=== PATIENT | female | born 1965 | race Caucasian/White ===

== ENCOUNTER → 2017-11-02 14:23 | Outpatient (CLI) | payer BC, SELFPAY ==
[2017-11-02 16:45] LABS: Alanine Aminotransferase 33 IU/L (9-52); Albumin 4.7 g/dL (3.5-5.0); Albumin Globulin Ratio 1.7 (1.0-2.8); Alkaline Phosphatase 84 U/L (38-126); Aspartate Aminotransferase 29 IU/L (14-36); BUN Creatinine Ratio 23.8 (6-22); Bilirubin Total 0.4 mg/dL (0.2-1.3); Blood Urea Nitrogen 19 mg/dL (7-17); Calcium 10.3 mg/dL (8.4-10.2); Carbon Dioxide 36 mmol/L (22-32); Chloride 98 mmol/L (98-107); Estimated Glomerular Filt Rate > 60.0 mL/min (>60); Globulin 2.7 g/dL (1.7-4.1); Glucose 105 mg/dL (70-100); HEMOLYSIS 16 (0-50); Potassium 4.7 mmol/L (3.4-5.1); Sodium 143 mmol/L (137-145); Total Protein 7.4 g/dL (6.3-8.2)
== END ==
PROVIDERS: PCP Internal Medicine; Visit Provider Internal Medicine
DX: E11.9 Type 2 diabetes mellitus without complications (principal); E66.9 Obesity, unspecified; I10 Essential (primary) hypertension; K76.0 Fatty (change of) liver, not elsewhere classified
CPT/HCPCS: 36415; 80053

== ENCOUNTER → 2017-11-12 09:36 | Outpatient (CLI) | payer BC, SELFPAY ==
[2017-11-12 11:23] LABS: Alanine Aminotransferase 50 IU/L (9-52); Albumin 4.8 g/dL (3.5-5.0); Albumin Globulin Ratio 1.5 (1.0-2.8); Alkaline Phosphatase 91 U/L (38-126); Aspartate Aminotransferase 41 IU/L (14-36); Bilirubin Total 0.6 mg/dL (0.2-1.3); Blood Urea Nitrogen 20 mg/dL (7-17); Calcium 9.9 mg/dL (8.4-10.2); Carbon Dioxide 33 mmol/L (22-32); Chloride 98 mmol/L (98-107); Estimated Glomerular Filt Rate > 60.0 mL/min (>60); Globulin 3.1 g/dL (1.7-4.1); Glucose 127 mg/dL (70-100); HEMOLYSIS < 15 (0-50); Sodium 145 mmol/L (137-145); Total Protein 7.9 g/dL (6.3-8.2)
== END ==
PROVIDERS: PCP Internal Medicine; Visit Provider Internal Medicine
DX: E11.9 Type 2 diabetes mellitus without complications (principal); E66.9 Obesity, unspecified; K76.0 Fatty (change of) liver, not elsewhere classified
CPT/HCPCS: 36415; 80053

== ENCOUNTER 2017-12-21 06:55 | Emergency (ER) | payer BC, SELFPAY ==
[2017-12-21] VITALS (13 sets, daily range): BP systolic 98–118; BP diastolic 53–69; PULSE 56–73; RESP 12–21; TEMP 35.5; O2SAT 92–100; BMI 32.8
--- NOTE | 2017-12-21 07:15 | ED.SYNCOPE ---
HPI - Syncope General Chief Complaint: Fall Stated Complaint: DIZZY,SHAKING,FELL AND HIT HEAD Time Seen by Provider: 12/21/17 07:06 Source: patient and family (cousin) Limitations: no limitations History of Present Illness HPI narrative: This is a 52-year-old female who comes to the emergency department with complaint of dizziness and syncopal episode. Patient states she woke up this morning she felt very dizzy. She had to cut down on her hands and knees while she was in the shower. She stood back up to walk to her bedroom and she remembers everything being black. She did realize she was falling but she hurt all the noise which she hit the ground. She states she has a bruise on the back of her head, she denies any neck or back pain. She needs both of her shoulders are uncomfortable. She states she feels very shaky. She states the rooms not moving but everything seems sort of different in terms of sound and the room seems smaller than it should. Patient does have a little bit of a headache. She states it sort of waxes and wanes in intensity. She denies any chest pain or shortness of breath. She feels nauseated but has not had any vomiting. No diarrhea or urinary symptoms recently. She denies any weakness. She is a diabetic and takes metformin. She also takes amitriptyline. Related Data Home Medications Medication Instructions Recorded Confirmed amitriptyline 300 mg PO BEDTIME 12/21/17 12/21/17 fluticasone-salmeterol 1 puff INHALATION DIRECTED 12/21/17 12/21/17 metformin 500 mg PO BID 12/21/17 12/21/17 Previous Rx's Medication Instructions Recorded meclizine 25 mg PO BID-QID PRN #10 tab 12/21/17 Allergies Allergy/AdvReac Type Severity Reaction Status Date / Time Penicillins [PENICILLINS] Allergy Intermediate SWELLING Verified 12/21/17 07:18 Review of Systems Review of Systems All systems reviewed & are unremarkable except as noted in HPI and below Constitutional Denies body ache(s), Denies chills, Denies fever(s), Reports headache(s), Reports malaise and Denies weakness Eyes Denies loss of vision ENT Ears, Nose, Mouth, and Throat: Reports dizziness, Reports headache(s), Denies neck pain and Reports disequilibrium Cardiovascular Denies chest pain, Denies diaphoresis, Reports syncope, Denies edema, Denies irregular heart rhythm, Denies leg edema, Denies lightheadedness, Denies radiating jaw, neck or arm pain, Denies palpitations, Denies dyspnea, Denies dyspnea on exertion and Denies orthopnea Respiratory Denies chest congestion, Denies cough, Denies dyspnea, Denies dyspnea on exertion and Denies wheezing Gastrointestinal Gastrointestinal: Denies abdominal pain, Denies change in bowel habits, Denies constipation, Denies diarrhea, Reports nausea and Denies vomiting Genitourinary Denies hematuria, Denies urinary frequency, Denies flank pain, Denies urinary incontinence and Denies urinary urgency Musculoskeletal Denies back pain, Reports arthralgias (both shoulders hurt), Denies neck pain and Denies numbness Integumentary/Breasts Denies rash Neurologic Denies confusion, Reports dizziness, Reports syncope, Reports headache(s), Denies focal weakness, Denies loss of vision, Denies numbness, Reports other visual disturbances, Denies sensory deficit, Reports disequilibrium and Denies weakness Psychiatric Denies confusion Endocrine Denies palpitations Allergic/Immunologic Denies wheezing [facility] Medical History Diabetes (Acute) Social History Smoking Status: Current every day smoker Exam Narrative Exam Narrative: GEN: Patient appears in mild distress. Patient appears pale and shaky. HEAD: Patient has small hematoma on posterior scalp, no raccoon/Clancy sign. NECK: Nontender, painless range of motion, trachea midline Negative Nexus criteria, there is no mid line tenderness, distracting injury, altered mental status, neuro deficit, recent EtOH. EYES: PERRLA, EOMI ENT: External inspection normal, trachea is midline, TM's are normal no hemotypanum, small amount of fluid behind TM bilaterally, no erthema, Nares are clear, no septal hematoma, no dental or oral injury, airway is normal and with normal occlusion, No bony tenderness, no facial droop. RESP: Chest is nontender and has symmetric movement, no ecchymosis, breath sounds are normal no crackles, wheezes or rales CVS: Heart sounds are normal, no murmur noted, No JVD. ABG/GI: Nontender, soft, normal bowel sounds, no distention, no organomegaly, pelvic rock is negative NEURO: Oriented AOx3, neuro is grossly intact, sensation and motor is normal all 4 extremities moving, cranial nerves II through XII are intact, GCS is 15 PSYCH: Normal mood and affect SKIN: Intact, warm and dry, no crepitus and without decubitus BACK: No CVA tenderness, no vertebral tenderness, no step-off's, no crepitus EXT: Atraumatic, hips are nontender, no pedal edema, normal color and temperature, normal range of motion of extremities with normal tendon exam, 2+ pulses in all four extremities Initial Vital Signs Initial Vital Signs: Vital Signs Temperature 96 F L 12/21/17 07:09 Pulse Rate 73 12/21/17 07:09 Respiratory Rate 13 12/21/17 07:09 Blood Pressure 104/65 12/21/17 07:09 Pulse Oximetry 96 12/21/17 07:09 Scores NIH Stroke Scale Level of Conciousness: Alert, keenly responsive Ask month/age: Answers both questions correctly. Open/close eyes, close hand: Performs both tasks correctly Best gaze horizontal: Normal Visual miramontes: No visual loss Facial palsy: Normal symetrical movement Left arm drift: No drift for full 10 sec Right arm drift: No drift for full 10 sec Left leg drift: No drift for full 10 sec Right leg drift: No drift for full 10 sec Limb ataxia: Absent Sensory on face/arms/legs: Normal, no sensory loss Best language: No aphasia, normal Dysarthria: Normal Extinction or inattention: No abnormality Total NIH Stroke scale score: 0 Course Orders Ordered: ED Orders 12/21/17 07:14 EKG-12 Lead Stat 12/21/17 07:15 XR chest 1V Stat 12/21/17 07:23 CT head/brain wo con Stat 12/21/17 07:45 Complete Blood Count AUTO DIFF Stat Comprehensive Metabolic Panel Stat Prothrombin Time INR Stat Troponin I Stat 12/21/17 09:25 Urinalysis Sreen (Dip Only) Stat Urine Culture Stat Urine Microscopic Stat 12/21/17 10:43 CT cervical spine wo con Stat Discontinued Medications Dextrose (D50w) 12.5 gm IV NOW ONE Stop: 12/21/17 07:41 Last Admin: 12/21/17 07:44 Dose: 12.5 gm Sodium Chloride (Normal Saline 0.9%) 1,000 mls @ 1,000 mls/hr IV BOLUS ONE Stop: 12/21/17 08:13 Last Infusion: 12/21/17 09:26 Dose: 0 mls/hr Admin: 12/21/17 07:43 Dose: 1,000 mls/hr Sodium Chloride (Normal Saline 0.9%) 1,000 mls @ 1,000 mls/hr IV BOLUS ONE Stop: 12/21/17 11:43 Last Infusion: 12/21/17 12:13 Dose: 0 mls/hr Admin: 12/21/17 10:45 Dose: 1,000 mls/hr Ketorolac Tromethamine (Toradol) 30 mg IV NOW ONE Stop: 12/21/17 12:10 Last Admin: 12/21/17 12:18 Dose: 30 mg Meclizine HCl (Antivert) 50 mg PO NOW ONE Stop: 12/21/17 09:03 Last Admin: 12/21/17 09:37 Dose: 50 mg Ondansetron HCl (Zofran) 4 mg IV NOW ONE Stop: 12/21/17 07:27 Last Admin: 12/21/17 07:43 Dose: 4 mg Vital Signs - 8 hr 12/21/17 07:09 12/21/17 07:35 12/21/17 08:21 Temperature 96 F L Pulse Rate 73 59 L 61 Pulse Rate [Orthostatic Lying] Pulse Rate [Orthostatic Sitting] Pulse Rate [Orthostatic Standing] Respiratory Rate 13 16 16 Blood Pressure 104/65 Blood Pressure [Orthostatic Lying] Blood Pressure [Orthostatic Sitting] Blood Pressure [Orthostatic Standing] Blood Pressure [Right Arm] 101/60 Pulse Oximetry 96 95 12/21/17 08:30 12/21/17 09:00 12/21/17 09:30 Temperature Pulse Rate 59 L 59 L 56 L Pulse Rate [Orthostatic Lying] Pulse Rate [Orthostatic Sitting] Pulse Rate [Orthostatic Standing] Respiratory Rate 15 Blood Pressure Blood Pressure [Orthostatic Lying] Blood Pressure [Orthostatic Sitting] Blood Pressure [Orthostatic Standing] Blood Pressure [Right Arm] 98/57 L 99/56 L 108/65 Pulse Oximetry 95 97 93 12/21/17 09:38 12/21/17 10:00 12/21/17 10:30 Temperature Pulse Rate 56 L 62 63 Pulse Rate [Orthostatic Lying] Pulse Rate [Orthostatic Sitting] Pulse Rate [Orthostatic Standing] Respiratory Rate 16 Blood Pressure Blood Pressure [Orthostatic Lying] Blood Pressure [Orthostatic Sitting] Blood Pressure [Orthostatic Standing] Blood Pressure [Right Arm] 108/65 113/60 Pulse Oximetry 92 94 93 12/21/17 11:00 12/21/17 12:14 12/21/17 12:45 Temperature Pulse Rate 62 62 65 Pulse Rate [Orthostatic Lying] Pulse Rate [Orthostatic Sitting] Pulse Rate [Orthostatic Standing] Respiratory Rate 21 12 Blood Pressure Blood Pressure [Orthostatic Lying] Blood Pressure [Orthostatic Sitting] Blood Pressure [Orthostatic Standing] Blood Pressure [Right Arm] 100/53 L 109/60 115/65 Pulse Oximetry 96 100 98 12/21/17 12:54 Temperature Pulse Rate Pulse Rate [Orthostatic Lying] 57 L Pulse Rate [Orthostatic Sitting] 65 Pulse Rate [Orthostatic Standing] 61 Respiratory Rate Blood Pressure Blood Pressure [Orthostatic Lying] 118/57 L Blood Pressure [Orthostatic Sitting] 102/63 Blood Pressure [Orthostatic Standing] 109/69 Blood Pressure [Right Arm] Pulse Oximetry MDM - Syncope Lab Data Attestation: I reviewed the patient's lab results. Result diagrams: 12/21/17 07:45 12/21/17 07:45 Lab Results 12/21/17 12/21/17 12/21/17 Range/Units 07:45 07:45 07:45 WBC 5.3 (4.5-11.0) X10^3/uL RBC 4.76 (4.0-5.2) X10^6/uL Hgb 14.0 (12.0-16.0) g/dL Hct 40.9 (36-46) % MCV 86.0 (80-100) fL MCH 29.5 (26-34) PG MCHC 34.3 (30-36) % RDW 12.7 (11.6-14.8) % Plt Count 173 (150-400) X10^3/uL Neut % (Auto) 53.7 (50-75) % Lymph % (Auto) 34.6 (25-40) % [place] % (Auto) 6.0 (3-14) % Eos % (Auto) 4.9 H (2-4) % Baso % (Auto) 0.8 (0-2) % Neut # (Auto) 2900 L (1514-5192) /uL PT 11.7 (10.1-12.7) SECONDS INR 1.1 (0.9-1.3) Sodium 143 (137-145) mmol/L Potassium 4.9 (3.4-5.1) mmol/L Chloride 103 (98-107) mmol/L Carbon Dioxide 28 (22-32) mmol/L BUN 21 H (7-17) mg/dL Creatinine 0.70 (0.52-1.04) mg/dL Estimated GFR > 60.0 (>60) mL/min BUN/Creatinine Ratio 30.0 H (6-22) Glucose 108 H (70-100) mg/dL Calcium 9.5 (8.4-10.2) mg/dL Total Bilirubin 0.5 (0.2-1.3) mg/dL AST 36 (14-36) IU/L ALT 40 (9-52) IU/L Alkaline Phosphatase 77 (38-126) U/L Troponin I < 0.012 (0.01-0.034) ng/mL Total Protein 7.3 (6.3-8.2) g/dL Albumin 4.5 (3.5-5.0) g/dL Globulin 2.8 (1.7-4.1) g/dL Albumin/Globulin Ratio 1.6 (1.0-2.8) Urine Color Urine Appearance Urine pH (4.5-8.0) Ur Specific [place] (1.000-1.035) Urine Protein (Negative) Urine Glucose (UA) (Normal) g/dL Urine Ketones (NEGATIVE) Urine Occult Blood (Negative) Urine Nitrate (Negative) Urine Bilirubin (NEGATIVE) Urine Urobilinogen (0.2) E.U./dL Ur Leukocyte Esterase (NEGATIVE) Urine RBC (0-5/HPF) Urine WBC (0-5/HPF) Calcium Oxalate Crystal (None) Urine Bacteria (None) Ur Culture Indicated? Micro UA Comment 12/21/17 Range/Units 09:25 WBC (4.5-11.0) X10^3/uL RBC (4.0-5.2) X10^6/uL Hgb (12.0-16.0) g/dL Hct (36-46) % MCV (80-100) fL MCH (26-34) PG MCHC (30-36) % RDW (11.6-14.8) % Plt Count (150-400) X10^3/uL Neut % (Auto) (50-75) % Lymph % (Auto) (25-40) % [place] % (Auto) (3-14) % Eos % (Auto) (2-4) % Baso % (Auto) (0-2) % Neut # (Auto) (9540-2687) /uL PT (10.1-12.7) SECONDS INR (0.9-1.3) Sodium (137-145) mmol/L Potassium (3.4-5.1) mmol/L Chloride (98-107) mmol/L Carbon Dioxide (22-32) mmol/L BUN (7-17) mg/dL Creatinine (0.52-1.04) mg/dL Estimated GFR (>60) mL/min BUN/Creatinine Ratio (6-22) Glucose (70-100) mg/dL Calcium (8.4-10.2) mg/dL Total Bilirubin (0.2-1.3) mg/dL AST (14-36) IU/L ALT (9-52) IU/L Alkaline Phosphatase (38-126) U/L Troponin I (0.01-0.034) ng/mL Total Protein (6.3-8.2) g/dL Albumin (3.5-5.0) g/dL Globulin (1.7-4.1) g/dL Albumin/Globulin Ratio (1.0-2.8) Urine Color Yellow Urine Appearance Clear Urine pH 5.5 (4.5-8.0) Ur Specific [place] 1.020 (1.000-1.035) Urine Protein Negative (Negative) Urine Glucose (UA) Trace (Normal) g/dL Urine Ketones Negative (NEGATIVE) Urine Occult Blood Negative (Negative) Urine Nitrate Negative (Negative) Urine Bilirubin Negative (NEGATIVE) Urine Urobilinogen 0.2 (0.2) E.U./dL Ur Leukocyte Esterase Trace H (NEGATIVE) Urine RBC None seen (0-5/HPF) Urine WBC 30-100/hpf H (0-5/HPF) Calcium Oxalate Crystal Few H (None) Urine Bacteria Many (>30) H (None) Ur Culture Indicated? Specimen cultured Micro UA Comment Not Reportable Point of Care Testing Glucose POC 132 Urine Dip Bedside Urine Glucose Negative Bedside Urine Bilirubin + 1 Bedside Urine Ketone - Negative Urine Specific [place] 1.025 Bedside Urine Occult Blood - Negative Bedside Urine pH 6.0 Bedside Urine Protein - Negative Bedside Urine Urobilinogen - Negative Bedside Urine Nitrite - Negative Bedside Urine Leukocytes - Negative Esterase Imaging Data CT scan - head: Radiologist's impression: [address] [address] [address] Scan Report Signed Patient: Gerri GambleMR#: [id number] : 1965Acct:[id number] Age/Sex: 52 / FDate of Service: 12/21/17 Loc: ED Accession Number: [id number] Procedure: CT head/brain wo con Ordering Provider: Rosa Kc D.O. PROCEDURE: CT HEAD/BRAIN WO CON INDICATIONS: dizziness, syncope, fall TECHNIQUE: Noncontrast 4.5 mm thick angled axial sections acquired from the foramen magnum to the vertex, with coronal and sagittal reformats. For radiation dose reduction, the following was used: automated exposure control, adjustment of mA and/or kV according to patient size. COMPARISON: [facility], CT, HEAD WITHOUT CONTRAST, 09/26/2008, 17:15. FINDINGS: Image quality: Excellent. CSF spaces: Basal cisterns are patent. No extra-axial fluid collections. The ventricles are symmetric in size and shape. Brain: No intracranial bleeds or masses. There is cerebral volume loss for age, with resultant ventricular and sulcal prominence. There are periventricular and deep white matter chronic small vessel ischemic changes. There is intracranial internal carotid artery atherosclerosis. Skull and face: Calvarium and visualized facial bones appear intact, without suspicious lesions. Sinuses: Visualized sinuses and mastoids are clear. IMPRESSION: No acute intracranial process. Dictated by: Mario Carrillo M.D. on 12/21/2017 at 8:25 Approved by: Mario Carrillo M.D. on 12/21/2017 at 8:29 CT cervical spine : Radiologist's impression: [facility] DATE TYPE STATUS AUTHOR Hx 12/21/17 10:43 Isaak Pineda 12/21/17 07:23 Mario Carrillo 12/21/17 07:15 Chioma Taylor Gerri Gamble 52, F1965 [facility] ER, ED - Main ED: R08 165.1cm 89.358kg BSA: 1.97m? BMI: 32.8kg/m? Fall Search Chart Penicillins (PENICILLINS) SWELLING ONSET Today 12:[address] [address] [address] Scan Report Signed Patient: Madyson Gamble#: [id number] : 1965Acct:[id number] Age/Sex: 52 / FDate of Service: 12/21/17 Loc: ED Accession Number: [id number] Procedure: CT cervical spine wo con Ordering Provider: Rosa cK D.O. PROCEDURE: CT CERVICAL SPINE WO CON INDICATIONS: neck pain, after fall TECHNIQUE: Noncontrast 3 mm thick sections acquired from the skull base to the T4 level. Sagittal and coronal reformats were then constructed. For radiation dose reduction, the following was used: automated exposure control, adjustment of mA and/or kV according to patient size. COMPARISON: [facility], CT, CT HEAD/BRAIN WO CON, 12/21/2017, 8:20. FINDINGS: Image quality: Excellent. Bones: No fractures or dislocations. Visualized superior ribs are intact. Degenerative changes are seen, including moderate disc space narrowing at the C5-C6 level. Posteriorly directed osteophytes are seen at this level. S-shaped cervicothoracic scoliotic curvature can be seen. Soft tissues: Prevertebral soft tissues are normal in thickness. No paravertebral hematomas. Emphysematous changes are seen. No apical pneumothoraces. IMPRESSION: No acute fractures are seen. Degenerative changes are noted. Dictated by: Isaak Pineda M.D. on 12/21/2017 at 9:57 Approved by: Isaak Pineda M.D. on 12/21/2017 at 10:00 Chest x-ray: Radiologist's impression: [address] [address] XRay Report Signed Patient: Madyson Gamble#: [id number] : 1965Acct:[id number] Age/Sex: 52 / FDate of Service: 12/21/17 Loc: ED Accession Number: [id number] Procedure: XR chest 1V Ordering Provider: Rosa Kc D.O. PROCEDURE: XR CHEST 1V INDICATIONS: dizziness, syncope TECHNIQUE: One view of the chest was acquired. COMPARISON: [facility], CHEST 2 VIEW, 03/24/2017, 8:05. FINDINGS: Surgical changes and devices: None. Lungs and pleura: No pleural effusions or pneumothorax. Lungs are clear. Mediastinum: Mediastinal contours appear normal. Heart size is normal. Bones and chest wall: No suspicious bony lesions. Overlying soft tissues appear unremarkable. IMPRESSION: No acute pulmonary process. Dictated by: Chioma Taylor M.D. on 12/21/2017 at 7:51 Approved by: Chioma Taylor M.D. on 12/21/2017 at 7:52 ECG Data Attestation: I personally reviewed and interpreted this ECG as follows: Prior ECG tracings: not available for review Interpretation: Sinus rhythm with a rate of 64, P are 145, QRS of 116 and QTC of 433. Nonspecific ST change. MDM Narrative Medical decision making narrative: Patient's glucose was only 89 when she 1st arrived which isn't particularly low but was given some dextrose. Her symptoms did not improve recheck was 132. Patient continues to have symptoms although they are worse with movement. She does not have any specific findings on physical exam that are consistent for a CVA other than her dizziness. With for does discussion I suspect patient likely has vertigo. She has had similar symptoms in the past but not as strong. Her head CT did not show any acute changes such as bleed, mass or other changes. Chest x-ray was clear as long as lab work. She has been somewhat hypotensive in the department. She received a L of fluids which has improved somewhat. We also discussed trying some meclizine to see if this improves her symptoms. She has not given a urine sample yet. Patient's urine sample is negative. She improved with a L of fluids and her blood pressure continued to improve with a L of fluids. She is given a 2nd 1, she still has some slight dizziness but feels much better. She is able to ambulate to the bathroom without any issue. She has no signs or symptoms consistent with stroke, she may have an inner ear or labyrinthitis potentially but I suspect she has more vertigo type symptoms. Patient feels comfortable returning home. She does have a knot on the back of her head may also have some concussive symptoms complicating her situation. She is able to ambulate without assistance to the bathroom. Discharge Plan Departure Patient Disposition: Home Clinical Impression: Contusion of head, Syncope, Dizziness Discharge Date/Time: 12/21/17 13:00 Interventions: ED Discharge Assessment Last Done: 12/21/17 12:36 Instructions: DI for Concussion Activity Restrictions/Additional Instructions: Follow-up with your primary care provider in 2-3 days for recheck. Call for an appointment. You may continue your home medications as prescribed. May take meclizine 1-2 tablets every 6-8 hours for dizziness. Make sure your drinking plenty of fluids. Return to the ER for sudden severe headaches, new weakness, difficulty with speech, persistent dizziness or falling, a new chest pain or shortness of breath, sudden vision changes, passing out or other new or concerning symptoms. Prescriptions: New meclizine 25 mg tablet,chewable 25 mg PO BID-QID PRN (Reason: dizziness) Qty: 10 RF: 0 No Action metformin 500 mg tablet 500 mg PO BID RF: 0 amitriptyline 150 mg tablet 300 mg PO BEDTIME RF: 0 fluticasone-salmeterol 113-14 mcg/actuation aerosol powdr breath activated 1 puff Inhalation DIRECTED RF: 0
--- NOTE | 2017-12-21 07:21 | ED_ITS ---
HPI - Syncope General Chief Complaint: Fall Stated Complaint: DIZZY,SHAKING,FELL AND HIT HEAD Time Seen by Provider: 12/21/17 07:06 Source: patient and family (cousin) Limitations: no limitations History of Present Illness HPI narrative: This is a 52-year-old female who comes to the emergency department with complaint of dizziness and syncopal episode. Patient states she woke up this morning she felt very dizzy. She had to cut down on her hands and knees while she was in the shower. She stood back up to walk to her bedroom and she remembers everything being black. She did realize she was falling but she hurt all the noise which she hit the ground. She states she has a bruise on the back of her head, she denies any neck or back pain. She needs both of her shoulders are uncomfortable. She states she feels very shaky. She states the rooms not moving but everything seems sort of different in terms of sound and the room seems smaller than it should. Patient does have a little bit of a headache. She states it sort of waxes and wanes in intensity. She denies any chest pain or shortness of breath. She feels nauseated but has not had any vomiting. No diarrhea or urinary symptoms recently. She denies any weakness. She is a diabetic and takes metformin. She also takes amitriptyline. Related Data Home Medications Medication Instructions Recorded Confirmed amitriptyline 300 mg PO BEDTIME 12/21/17 12/21/17 fluticasone-salmeterol 1 puff INHALATION DIRECTED 12/21/17 12/21/17 metformin 500 mg PO BID 12/21/17 12/21/17 Previous Rx's Medication Instructions Recorded meclizine 25 mg PO BID-QID PRN #10 tab 12/21/17 Allergies Allergy/AdvReac Type Severity Reaction Status Date / Time Penicillins [PENICILLINS] Allergy Intermediate SWELLING Verified 12/21/17 07:18 Review of Systems Review of Systems All systems reviewed & are unremarkable except as noted in HPI and below Constitutional Denies body ache(s), Denies chills, Denies fever(s), Reports headache(s), Reports malaise and Denies weakness Eyes Denies loss of vision ENT Ears, Nose, Mouth, and Throat: Reports dizziness, Reports headache(s), Denies neck pain and Reports disequilibrium Cardiovascular Denies chest pain, Denies diaphoresis, Reports syncope, Denies edema, Denies irregular heart rhythm, Denies leg edema, Denies lightheadedness, Denies radiating jaw, neck or arm pain, Denies palpitations, Denies dyspnea, Denies dyspnea on exertion and Denies orthopnea Respiratory Denies chest congestion, Denies cough, Denies dyspnea, Denies dyspnea on exertion and Denies wheezing Gastrointestinal Gastrointestinal: Denies abdominal pain, Denies change in bowel habits, Denies constipation, Denies diarrhea, Reports nausea and Denies vomiting Genitourinary Denies hematuria, Denies urinary frequency, Denies flank pain, Denies urinary incontinence and Denies urinary urgency Musculoskeletal Denies back pain, Reports arthralgias (both shoulders hurt), Denies neck pain and Denies numbness Integumentary/Breasts Denies rash Neurologic Denies confusion, Reports dizziness, Reports syncope, Reports headache(s), Denies focal weakness, Denies loss of vision, Denies numbness, Reports other visual disturbances, Denies sensory deficit, Reports disequilibrium and Denies weakness Psychiatric Denies confusion Endocrine Denies palpitations Allergic/Immunologic Denies wheezing [facility] Medical History Diabetes (Acute) Social History Smoking Status: Current every day smoker Exam Narrative Exam Narrative: GEN: Patient appears in mild distress. Patient appears pale and shaky. HEAD: Patient has small hematoma on posterior scalp, no raccoon/Clancy sign. NECK: Nontender, painless range of motion, trachea midline Negative Nexus criteria, there is no mid line tenderness, distracting injury, altered mental status, neuro deficit, recent EtOH. EYES: PERRLA, EOMI ENT: External inspection normal, trachea is midline, TM's are normal no hemotypanum, small amount of fluid behind TM bilaterally, no erthema, Nares are clear, no septal hematoma, no dental or oral injury, airway is normal and with normal occlusion, No bony tenderness, no facial droop. RESP: Chest is nontender and has symmetric movement, no ecchymosis, breath sounds are normal no crackles, wheezes or rales CVS: Heart sounds are normal, no murmur noted, No JVD. ABG/GI: Nontender, soft, normal bowel sounds, no distention, no organomegaly, pelvic rock is negative NEURO: Oriented AOx3, neuro is grossly intact, sensation and motor is normal all 4 extremities moving, cranial nerves II through XII are intact, GCS is 15 PSYCH: Normal mood and affect SKIN: Intact, warm and dry, no crepitus and without decubitus BACK: No CVA tenderness, no vertebral tenderness, no step-off's, no crepitus EXT: Atraumatic, hips are nontender, no pedal edema, normal color and temperature, normal range of motion of extremities with normal tendon exam, 2+ pulses in all four extremities Initial Vital Signs Initial Vital Signs: Vital Signs Temperature 96 F L 12/21/17 07:09 Pulse Rate 73 12/21/17 07:09 Respiratory Rate 13 12/21/17 07:09 Blood Pressure 104/65 12/21/17 07:09 Pulse Oximetry 96 12/21/17 07:09 Scores NIH Stroke Scale Level of Conciousness: Alert, keenly responsive Ask month/age: Answers both questions correctly. Open/close eyes, close hand: Performs both tasks correctly Best gaze horizontal: Normal Visual miramontes: No visual loss Facial palsy: Normal symetrical movement Left arm drift: No drift for full 10 sec Right arm drift: No drift for full 10 sec Left leg drift: No drift for full 10 sec Right leg drift: No drift for full 10 sec Limb ataxia: Absent Sensory on face/arms/legs: Normal, no sensory loss Best language: No aphasia, normal Dysarthria: Normal Extinction or inattention: No abnormality Total NIH Stroke scale score: 0 Course Orders Ordered: ED Orders 12/21/17 07:14 EKG-12 Lead Stat 12/21/17 07:15 XR chest 1V Stat 12/21/17 07:23 CT head/brain wo con Stat 12/21/17 07:45 Complete Blood Count AUTO DIFF Stat Comprehensive Metabolic Panel Stat Prothrombin Time INR Stat Troponin I Stat 12/21/17 09:25 Urinalysis Sreen (Dip Only) Stat Urine Culture Stat Urine Microscopic Stat 12/21/17 10:43 CT cervical spine wo con Stat Discontinued Medications Dextrose (D50w) 12.5 gm IV NOW ONE Stop: 12/21/17 07:41 Last Admin: 12/21/17 07:44 Dose: 12.5 gm Sodium Chloride (Normal Saline 0.9%) 1,000 mls @ 1,000 mls/hr IV BOLUS ONE Stop: 12/21/17 08:13 Last Infusion: 12/21/17 09:26 Dose: 0 mls/hr Admin: 12/21/17 07:43 Dose: 1,000 mls/hr Sodium Chloride (Normal Saline 0.9%) 1,000 mls @ 1,000 mls/hr IV BOLUS ONE Stop: 12/21/17 11:43 Last Infusion: 12/21/17 12:13 Dose: 0 mls/hr Admin: 12/21/17 10:45 Dose: 1,000 mls/hr Ketorolac Tromethamine (Toradol) 30 mg IV NOW ONE Stop: 12/21/17 12:10 Last Admin: 12/21/17 12:18 Dose: 30 mg Meclizine HCl (Antivert) 50 mg PO NOW ONE Stop: 12/21/17 09:03 Last Admin: 12/21/17 09:37 Dose: 50 mg Ondansetron HCl (Zofran) 4 mg IV NOW ONE Stop: 12/21/17 07:27 Last Admin: 12/21/17 07:43 Dose: 4 mg Vital Signs - 8 hr 12/21/17 07:09 12/21/17 07:35 12/21/17 08:21 Temperature 96 F L Pulse Rate 73 59 L 61 Pulse Rate [Orthostatic Lying] Pulse Rate [Orthostatic Sitting] Pulse Rate [Orthostatic Standing] Respiratory Rate 13 16 16 Blood Pressure 104/65 Blood Pressure [Orthostatic Lying] Blood Pressure [Orthostatic Sitting] Blood Pressure [Orthostatic Standing] Blood Pressure [Right Arm] 101/60 Pulse Oximetry 96 95 12/21/17 08:30 12/21/17 09:00 12/21/17 09:30 Temperature Pulse Rate 59 L 59 L 56 L Pulse Rate [Orthostatic Lying] Pulse Rate [Orthostatic Sitting] Pulse Rate [Orthostatic Standing] Respiratory Rate 15 Blood Pressure Blood Pressure [Orthostatic Lying] Blood Pressure [Orthostatic Sitting] Blood Pressure [Orthostatic Standing] Blood Pressure [Right Arm] 98/57 L 99/56 L 108/65 Pulse Oximetry 95 97 93 12/21/17 09:38 12/21/17 10:00 12/21/17 10:30 Temperature Pulse Rate 56 L 62 63 Pulse Rate [Orthostatic Lying] Pulse Rate [Orthostatic Sitting] Pulse Rate [Orthostatic Standing] Respiratory Rate 16 Blood Pressure Blood Pressure [Orthostatic Lying] Blood Pressure [Orthostatic Sitting] Blood Pressure [Orthostatic Standing] Blood Pressure [Right Arm] 108/65 113/60 Pulse Oximetry 92 94 93 12/21/17 11:00 12/21/17 12:14 12/21/17 12:45 Temperature Pulse Rate 62 62 65 Pulse Rate [Orthostatic Lying] Pulse Rate [Orthostatic Sitting] Pulse Rate [Orthostatic Standing] Respiratory Rate 21 12 Blood Pressure Blood Pressure [Orthostatic Lying] Blood Pressure [Orthostatic Sitting] Blood Pressure [Orthostatic Standing] Blood Pressure [Right Arm] 100/53 L 109/60 115/65 Pulse Oximetry 96 100 98 12/21/17 12:54 Temperature Pulse Rate Pulse Rate [Orthostatic Lying] 57 L Pulse Rate [Orthostatic Sitting] 65 Pulse Rate [Orthostatic Standing] 61 Respiratory Rate Blood Pressure Blood Pressure [Orthostatic Lying] 118/57 L Blood Pressure [Orthostatic Sitting] 102/63 Blood Pressure [Orthostatic Standing] 109/69 Blood Pressure [Right Arm] Pulse Oximetry MDM - Syncope Lab Data Attestation: I reviewed the patient's lab results. Result diagrams: 12/21/17 07:45 12/21/17 07:45 Lab Results 12/21/17 12/21/17 12/21/17 Range/Units 07:45 07:45 07:45 WBC 5.3 (4.5-11.0) X10^3/uL RBC 4.76 (4.0-5.2) X10^6/uL Hgb 14.0 (12.0-16.0) g/dL Hct 40.9 (36-46) % MCV 86.0 (80-100) fL MCH 29.5 (26-34) PG MCHC 34.3 (30-36) % RDW 12.7 (11.6-14.8) % Plt Count 173 (150-400) X10^3/uL Neut % (Auto) 53.7 (50-75) % Lymph % (Auto) 34.6 (25-40) % [place] % (Auto) 6.0 (3-14) % Eos % (Auto) 4.9 H (2-4) % Baso % (Auto) 0.8 (0-2) % Neut # (Auto) 2900 L (8195-3660) /uL PT 11.7 (10.1-12.7) SECONDS INR 1.1 (0.9-1.3) Sodium 143 (137-145) mmol/L Potassium 4.9 (3.4-5.1) mmol/L Chloride 103 (98-107) mmol/L Carbon Dioxide 28 (22-32) mmol/L BUN 21 H (7-17) mg/dL Creatinine 0.70 (0.52-1.04) mg/dL Estimated GFR > 60.0 (>60) mL/min BUN/Creatinine Ratio 30.0 H (6-22) Glucose 108 H (70-100) mg/dL Calcium 9.5 (8.4-10.2) mg/dL Total Bilirubin 0.5 (0.2-1.3) mg/dL AST 36 (14-36) IU/L ALT 40 (9-52) IU/L Alkaline Phosphatase 77 (38-126) U/L Troponin I < 0.012 (0.01-0.034) ng/mL Total Protein 7.3 (6.3-8.2) g/dL Albumin 4.5 (3.5-5.0) g/dL Globulin 2.8 (1.7-4.1) g/dL Albumin/Globulin Ratio 1.6 (1.0-2.8) Urine Color Urine Appearance Urine pH (4.5-8.0) Ur Specific Morris (1.000-1.035) Urine Protein (Negative) Urine Glucose (UA) (Normal) g/dL Urine Ketones (NEGATIVE) Urine Occult Blood (Negative) Urine Nitrate (Negative) Urine Bilirubin (NEGATIVE) Urine Urobilinogen (0.2) E.U./dL Ur Leukocyte Esterase (NEGATIVE) Urine RBC (0-5/HPF) Urine WBC (0-5/HPF) Calcium Oxalate Crystal (None) Urine Bacteria (None) Ur Culture Indicated? Micro UA Comment 12/21/17 Range/Units 09:25 WBC (4.5-11.0) X10^3/uL RBC (4.0-5.2) X10^6/uL Hgb (12.0-16.0) g/dL Hct (36-46) % MCV (80-100) fL MCH (26-34) PG MCHC (30-36) % RDW (11.6-14.8) % Plt Count (150-400) X10^3/uL Neut % (Auto) (50-75) % Lymph % (Auto) (25-40) % [place] % (Auto) (3-14) % Eos % (Auto) (2-4) % Baso % (Auto) (0-2) % Neut # (Auto) (0890-0199) /uL PT (10.1-12.7) SECONDS INR (0.9-1.3) Sodium (137-145) mmol/L Potassium (3.4-5.1) mmol/L Chloride (98-107) mmol/L Carbon Dioxide (22-32) mmol/L BUN (7-17) mg/dL Creatinine (0.52-1.04) mg/dL Estimated GFR (>60) mL/min BUN/Creatinine Ratio (6-22) Glucose (70-100) mg/dL Calcium (8.4-10.2) mg/dL Total Bilirubin (0.2-1.3) mg/dL AST (14-36) IU/L ALT (9-52) IU/L Alkaline Phosphatase (38-126) U/L Troponin I (0.01-0.034) ng/mL Total Protein (6.3-8.2) g/dL Albumin (3.5-5.0) g/dL Globulin (1.7-4.1) g/dL Albumin/Globulin Ratio (1.0-2.8) Urine Color Yellow Urine Appearance Clear Urine pH 5.5 (4.5-8.0) Ur Specific Morris 1.020 (1.000-1.035) Urine Protein Negative (Negative) Urine Glucose (UA) Trace (Normal) g/dL Urine Ketones Negative (NEGATIVE) Urine Occult Blood Negative (Negative) Urine Nitrate Negative (Negative) Urine Bilirubin Negative (NEGATIVE) Urine Urobilinogen 0.2 (0.2) E.U./dL Ur Leukocyte Esterase Trace H (NEGATIVE) Urine RBC None seen (0-5/HPF) Urine WBC 30-100/hpf H (0-5/HPF) Calcium Oxalate Crystal Few H (None) Urine Bacteria Many (>30) H (None) Ur Culture Indicated? Specimen cultured Micro UA Comment Not Reportable Point of Care Testing Glucose POC 132 Urine Dip Bedside Urine Glucose Negative Bedside Urine Bilirubin + 1 Bedside Urine Ketone - Negative Urine Specific Morris 1.025 Bedside Urine Occult Blood - Negative Bedside Urine pH 6.0 Bedside Urine Protein - Negative Bedside Urine Urobilinogen - Negative Bedside Urine Nitrite - Negative Bedside Urine Leukocytes - Negative Esterase Imaging Data CT scan - head: Radiologist's impression: [address] [address] [address] Scan Report Signed Patient: Gerri GambleMR#: [id number] : 1965Acct:[id number] Age/Sex: 52 / FDate of Service: 12/21/17 Loc: ED Accession Number: [id number] Procedure: CT head/brain wo con Ordering Provider: Rosa Kc D.O. PROCEDURE: CT HEAD/BRAIN WO CON INDICATIONS: dizziness, syncope, fall TECHNIQUE: Noncontrast 4.5 mm thick angled axial sections acquired from the foramen magnum to the vertex, with coronal and sagittal reformats. For radiation dose reduction, the following was used: automated exposure control, adjustment of mA and/or kV according to patient size. COMPARISON: [facility], CT, HEAD WITHOUT CONTRAST, 09/26/2008, 17:15. FINDINGS: Image quality: Excellent. CSF spaces: Basal cisterns are patent. No extra-axial fluid collections. The ventricles are symmetric in size and shape. Brain: No intracranial bleeds or masses. There is cerebral volume loss for age , with resultant ventricular and sulcal prominence. There are periventricular and deep white matter chronic small vessel ischemic changes. There is intracranial internal carotid artery atherosclerosis. Skull and face: Calvarium and visualized facial bones appear intact, without suspicious lesions. Sinuses: Visualized sinuses and mastoids are clear. IMPRESSION: No acute intracranial process. Dictated by: Mario Carrillo M.D. on 12/21/2017 at 8:25 Approved by: Mario Carrillo M.D. on 12/21/2017 at 8:29 CT cervical spine : Radiologist's impression: [facility] DATE TYPE STATUS AUTHOR Hx 12/21/17 10:43 Isaak Pineda 12/21/17 07:23 Mario Carrillo 12/21/17 07:15 Chioma Taylor Gerri Gamble 52, [id number] [facility] ER, ED - Main ED: R08 165.1cm 89.358kg BSA: 1.97m? BMI: 32.8kg/m? Fall Search Chart Penicillins (PENICILLINS) SWELLING ONSET Today 12:[address] [address] [address] Scan Report Signed Patient: Madyson Gamble#: [id number] : 1965Acct:[id number] Age/Sex: 52 / FDate of Service: 12/21/17 Loc: ED Accession Number: [id number] Procedure: CT cervical spine wo con Ordering Provider: Rosa Kc D.O. PROCEDURE: CT CERVICAL SPINE WO CON INDICATIONS: neck pain, after fall TECHNIQUE: Noncontrast 3 mm thick sections acquired from the skull base to the T4 level. Sagittal and coronal reformats were then constructed. For radiation dose reduction, the following was used: automated exposure control, adjustment of mA and/or kV according to patient size. COMPARISON: [facility], CT, CT HEAD/BRAIN WO CON, 12/21/2017, 8:20. FINDINGS: Image quality: Excellent. Bones: No fractures or dislocations. Visualized superior ribs are intact. Degenerative changes are seen, including moderate disc space narrowing at the C5-C6 level. Posteriorly directed osteophytes are seen at this level. S-shaped cervicothoracic scoliotic curvature can be seen. Soft tissues: Prevertebral soft tissues are normal in thickness. No paravertebral hematomas. Emphysematous changes are seen. No apical pneumothoraces. IMPRESSION: No acute fractures are seen. Degenerative changes are noted. Dictated by: Isaak Pineda M.D. on 12/21/2017 at 9:57 Approved by: Isaak Pineda M.D. on 12/21/2017 at 10:00 Chest x-ray: Radiologist's impression: [address] [address] XRay Report Signed Patient: Madyson Gamble#: [id number] : 1965Acct:[id number] Age/Sex: 52 / FDate of Service: 12/21/17 Loc: ED Accession Number: [id number] Procedure: XR chest 1V Ordering Provider: Rosa Kc D.O. PROCEDURE: XR CHEST 1V INDICATIONS: dizziness, syncope TECHNIQUE: One view of the chest was acquired. COMPARISON: [facility], CHEST 2 VIEW, 03/24/2017, 8:05. FINDINGS: Surgical changes and devices: None. Lungs and pleura: No pleural effusions or pneumothorax. Lungs are clear. Mediastinum: Mediastinal contours appear normal. Heart size is normal. Bones and chest wall: No suspicious bony lesions. Overlying soft tissues appear unremarkable. IMPRESSION: No acute pulmonary process. Dictated by: Chioma Taylor M.D. on 12/21/2017 at 7:51 Approved by: Chioma Taylor M.D. on 12/21/2017 at 7:52 ECG Data Attestation: I personally reviewed and interpreted this ECG as follows: Prior ECG tracings: not available for review Interpretation: Sinus rhythm with a rate of 64, P are 145, QRS of 116 and QTC of 433. Nonspecific ST change. MDM Narrative Medical decision making narrative: Patient's glucose was only 89 when she 1st arrived which isn't particularly low but was given some dextrose. Her symptoms did not improve recheck was 132. Patient continues to have symptoms although they are worse with movement. She does not have any specific findings on physical exam that are consistent for a CVA other than her dizziness. With for does discussion I suspect patient likely has vertigo. She has had similar symptoms in the past but not as strong. Her head CT did not show any acute changes such as bleed, mass or other changes. Chest x-ray was clear as long as lab work. She has been somewhat hypotensive in the department. She received a L of fluids which has improved somewhat. We also discussed trying some meclizine to see if this improves her symptoms. She has not given a urine sample yet. Patient's urine sample is negative. She improved with a L of fluids and her blood pressure continued to improve with a L of fluids. She is given a 2nd 1, she still has some slight dizziness but feels much better. She is able to ambulate to the bathroom without any issue. She has no signs or symptoms consistent with stroke, she may have an inner ear or labyrinthitis potentially but I suspect she has more vertigo type symptoms. Patient feels comfortable returning home. She does have a knot on the back of her head may also have some concussive symptoms complicating her situation. She is able to ambulate without assistance to the bathroom. Discharge Plan Departure Patient Disposition: Home Clinical Impression: Contusion of head, Syncope, Dizziness Discharge Date/Time: 12/21/17 13:00 Interventions: ED Discharge Assessment Last Done: 12/21/17 12:36 Instructions: DI for Concussion Activity Restrictions/Additional Instructions: Follow-up with your primary care provider in 2-3 days for recheck. Call for an appointment. You may continue your home medications as prescribed. May take meclizine 1-2 tablets every 6-8 hours for dizziness. Make sure your drinking plenty of fluids. Return to the ER for sudden severe headaches, new weakness, difficulty with speech, persistent dizziness or falling, a new chest pain or shortness of breath , sudden vision changes, passing out or other new or concerning symptoms. Prescriptions: New meclizine 25 mg tablet,chewable 25 mg PO BID-QID PRN (Reason: dizziness) Qty: 10 RF: 0 No Action metformin 500 mg tablet 500 mg PO BID RF: 0 amitriptyline 150 mg tablet 300 mg PO BEDTIME RF: 0 fluticasone-salmeterol 113-14 mcg/actuation aerosol powdr breath activated 1 puff Inhalation DIRECTED RF: 0
--- NOTE | 2017-12-21 07:33 | PC.NURSE ---
pt reports got out of shower , felt dizzy, then heard sounds when she was falling, hit back of head on dresser. unknown time loc denies neck pain, now with dizzy,nausea,headache, arrived alert and awake, skin pale, dry warm
[2017-12-21] MEDS: SODIUM CHLORIDE 0.9% 1,000 ML 1000 ML IV ×2 (07:43→10:45)
[2017-12-21] MEDS: ONDANSETRON 4 MG/2 ML INJ IV (07:43)
[2017-12-21] MEDS: DEXTROSE 50 % IN WATER 25 GM/50 ML SYRINGE IV (07:44)
--- NOTE | 2017-12-21 07:48 | PC.NURSE ---
started by supervisor public health nursing marko, instructor [employer].
[2017-12-21 08:02] LABS: Add Manual Diff / Slide Review NO; Basophils Percent Auto 0.8 % (0-2); Eosinophils Percent Auto 4.9 % (2-4); Hematocrit 40.9 % (36-46); Lymphocytes Percent Auto 34.6 % (25-40); Mean Corpuscular HGB Conc 34.3 % (30-36); Mean Corpuscular Hemoglobin 29.5 PG (26-34); Neutrophils Absolute Auto 2900 /uL (3000-5900); Neutrophils Percent Auto 53.7 % (50-75); Platelet Count 173 X10^3/uL (150-400); Red Blood Cell Count 4.76 X10^6/uL (4.0-5.2); Red Cell Distribution Width 12.7 % (11.6-14.8); White Blood Cell Count 5.3 X10^3/uL (4.5-11.0)
[2017-12-21 08:07] LABS: INR 1.1 (0.9-1.3); Prothrombin Time 11.7 SECONDS (10.1-12.7)
[2017-12-21 08:13] LABS: Alanine Aminotransferase 40 IU/L (9-52); Albumin 4.5 g/dL (3.5-5.0); Albumin Globulin Ratio 1.6 (1.0-2.8); Alkaline Phosphatase 77 U/L (38-126); Aspartate Aminotransferase 36 IU/L (14-36); Bilirubin Total 0.5 mg/dL (0.2-1.3); Blood Urea Nitrogen 21 mg/dL (7-17); Calcium 9.5 mg/dL (8.4-10.2); Carbon Dioxide 28 mmol/L (22-32); Chloride 103 mmol/L (98-107); Estimated Glomerular Filt Rate > 60.0 mL/min (>60); Globulin 2.8 g/dL (1.7-4.1); Glucose 108 mg/dL (70-100); Potassium 4.9 mmol/L (3.4-5.1); Sodium 143 mmol/L (137-145); Total Protein 7.3 g/dL (6.3-8.2)
[2017-12-21 08:15] LABS: HEMOLYSIS 73 (0-50)
--- NOTE | 2017-12-21 08:23 | PC.NURSE ---
pt remain alert and awake, increase in alertness, but still c/o headache, nausea is better at this time, waiting for pending result.
[2017-12-21 08:25] LABS: Troponin I < 0.012 ng/mL (0.01-0.034)
[2017-12-21] MEDS: MECLIZINE HCL 12.5 MG TABLET 50 MG PO (09:37)
[2017-12-21 09:44] LABS: Appearance Urine UA CLEAR; Bilirubin Urine UA NEGATIVE (NEGATIVE); Color Urine UA YELLOW; Glucose Urine UA TRACE g/dL (Normal); Ketones Urine UA NEGATIVE (NEGATIVE); Leukocyte Esterase Urine UA TRACE (NEGATIVE); Nitrite Urine UA NEGATIVE (Negative); Occult Blood Urine UA NEGATIVE (Negative); Protein Urine UA NEGATIVE (Negative); Urobilinogen Urine UA 0.2 E.U./dL (0.2); pH Urine UA 5.5 (4.5-8.0)
[2017-12-21 09:48] LABS: RBC Urine None Seen (0-5/HPF)
[2017-12-21 10:09] LABS: WBC Urine 30-100/HPF (0-5/HPF)
[2017-12-21 10:10] LABS: Bacteria Urine Many (>30); Calcium Oxalate Crystals Urine Few; Culture Indicated Urine Specimen Cultured
--- NOTE | 2017-12-21 10:43 | DI.CT.S_ITS ---
PROCEDURE: CT CERVICAL SPINE WO CON INDICATIONS: neck pain, after fall TECHNIQUE: Noncontrast 3 mm thick sections acquired from the skull base to the T4 level. Sagittal and coronal reformats were then constructed. For radiation dose reduction, the following was used: automated exposure control, adjustment of mA and/or kV according to patient size. COMPARISON: [facility], CT, CT HEAD/BRAIN WO CON, 12/21/2017, 8:20. FINDINGS: Image quality: Excellent. Bones: No fractures or dislocations. Visualized superior ribs are intact. Degenerative changes are seen, including moderate disc space narrowing at the C5-C6 level. Posteriorly directed osteophytes are seen at this level. S-shaped cervicothoracic scoliotic curvature can be seen. Soft tissues: Prevertebral soft tissues are normal in thickness. No paravertebral hematomas. Emphysematous changes are seen. No apical pneumothoraces. IMPRESSION: No acute fractures are seen. Degenerative changes are noted. Dictated by: Isaak Pineda M.D. on 12/21/2017 at 9:57 Approved by: Isaak Pineda M.D. on 12/21/2017 at 10:00
--- NOTE | 2017-12-21 11:06 | PC.NURSE ---
remain with cervical collar, awaiting for pending result. denies nausea, denies numbness and tingling.
[2017-12-21] MEDS: KETOROLAC 60 MG/2 ML VIAL 30 MG IV (12:18)
== END 2017-12-21 13:00 | disposition home or self-care (01) ==
PROVIDERS: Emergency Provider Emergency Medicine; PCP Internal Medicine
DX: S00.93XA Contusion of unspecified part of head, initial encounter (principal); R55 Syncope and collapse; R42 Dizziness and giddiness; W18.30XA Fall on same level, unspecified, initial encounter
CPT/HCPCS: 70450; 71045; 72125; 80053; 81003; 81015; 82962; 84484; 85025; 85610; 87077; 87086; 87186; 93005; 96361; 96374; 96375; 99285; J1885; J2405

== ENCOUNTER → 2019-04-13 09:53 | Outpatient (CLI) | payer BC, SELFPAY ==
[2019-04-13 10:48] LABS: Hematocrit 43.3 % (36-46); Hemoglobin 14.7 g/dL (12.0-16.0); Mean Corpuscular Hemoglobin 28.8 PG (26-34); Mean Corpuscular Volume 84.8 fL (80-100); Platelet Count 192 X10^3/uL (150-400); Red Blood Cell Count 5.11 X10^6/uL (4.0-5.2); Red Cell Distribution Width 13.9 % (11.6-14.8); White Blood Cell Count 5.6 X10^3/uL (4.5-11.0)
[2019-04-13 11:08] LABS: Hemoglobin A1C% w Est Avg Glu 5.9 % (4.0-6.0)
[2019-04-13 11:23] LABS: Alanine Aminotransferase 33 IU/L (<35); Albumin 4.7 g/dL (3.5-5.0); Albumin Globulin Ratio 1.5 (1.0-2.8); Alkaline Phosphatase 124 U/L (38-126); Aspartate Aminotransferase 35 IU/L (14-36); BUN Creatinine Ratio 18.3 (6-22); Bilirubin Total 0.4 mg/dL (0.2-1.3); Blood Urea Nitrogen 11 mg/dL (7-17); Calcium 9.9 mg/dL (8.4-10.2); Carbon Dioxide 25 mmol/L (22-32); Chloride 103 mmol/L (98-107); Cholesterol 161 mg/dL (140-199); Estimated Glomerular Filt Rate > 60.0 mL/min (>60); Globulin 3.1 g/dL (1.7-4.1); Glucose 112 mg/dL (70-100); HDL Cholesterol 63 mg/dL (40-60); HEMOLYSIS 20 (0-50); LDL Cholesterol Calculated 73 mg/dL (<100); Potassium 4.4 mmol/L (3.4-5.1); Sodium 140 mmol/L (137-145); Total Protein 7.8 g/dL (6.3-8.2); Triglycerides 125 mg/dL (35-150)
== END ==
PROVIDERS: PCP Nurse Practitioner Family; Referring Provider Nurse Practitioner Family; Visit Provider Nurse Practitioner Family
DX: Z13.6 Encounter for screening for cardiovascular disorders (principal); E11.9 Type 2 diabetes mellitus without complications; K76.0 Fatty (change of) liver, not elsewhere classified
CPT/HCPCS: 36415; 80053; 80061; 83036; 85027

== ENCOUNTER → 2019-12-19 11:00 | Outpatient (CLI) | payer BC, SELFPAY ==
[2019-12-19 13:50] LABS: COVID19 -Nasal RAPID Negative (Negative)
== END ==
PROVIDERS: PCP Nurse Practitioner Family; Visit Provider Physician Assistant
DX: R05 Cough (principal); J02.9 Acute pharyngitis, unspecified; R51.9 Headache, unspecified; R06.02 Shortness of breath
CPT/HCPCS: 87635

== ENCOUNTER → 2020-05-09 08:34 | Outpatient (CLI) | payer BC, SELFPAY ==
[2020-05-09 09:21] LABS: BUN Creatinine Ratio 25.4 (6-22); Blood Urea Nitrogen 16 mg/dL (7-17); Calcium 9.2 mg/dL (8.4-10.2); Carbon Dioxide 27 mmol/L (22-32); Chloride 105 mmol/L (98-107); Estimated Glomerular Filt Rate > 60.0 mL/min (>60); Glucose 119 mg/dL (70-100); Potassium 3.9 mmol/L (3.4-5.1); Sodium 139 mmol/L (137-145)
[2020-05-09 09:38] LABS: Hemoglobin A1C% w Est Avg Glu 5.7 % (4.0-6.0)
[2020-05-09 16:10] LABS: Alanine Aminotransferase 39 IU/L (<35); Albumin 4.2 g/dL (3.5-5.0); Albumin Globulin Ratio 1.6 (1.0-2.8); Alkaline Phosphatase 107 U/L (38-126); Aspartate Aminotransferase 37 IU/L (14-36); Bilirubin Total 0.2 mg/dL (0.2-1.3); Bilirubin Unconjugated 0.1 mg/dL (0.0-1.1); Globulin 2.6 g/dL (1.7-4.1); HEMOLYSIS 15 (0-50); Total Protein 6.8 g/dL (6.3-8.2)
== END ==
PROVIDERS: PCP Nurse Practitioner Family; Referring Provider Nurse Practitioner Family; Visit Provider Nurse Practitioner Family
DX: E11.9 Type 2 diabetes mellitus without complications (principal); R73.01 Impaired fasting glucose
CPT/HCPCS: 36415; 80048; 80076; 83036

== ENCOUNTER → 2020-05-16 10:00 | Outpatient (CLI) | payer BC, SELFPAY ==
[2020-05-16 10:34] LABS: Hematocrit 41.6 % (36-46); Hemoglobin 14.1 g/dL (12.0-16.0); Mean Corpuscular HGB Conc 33.8 % (30-36); Mean Corpuscular Hemoglobin 28.6 PG (26-34); Mean Corpuscular Volume 84.6 fL (80-100); Platelet Count 237 X10^3/uL (150-400); Red Blood Cell Count 4.92 X10^6/uL (4.0-5.2); Red Cell Distribution Width 14.1 % (11.6-14.8); White Blood Cell Count 5.9 X10^3/uL (4.5-11.0)
[2020-05-16 10:51] LABS: Appearance Urine UA CLEAR; Bilirubin Urine UA NEGATIVE (NEGATIVE); Color Urine UA YELLOW; Glucose Urine UA NEGATIVE (Negative); Ketones Urine UA NEGATIVE (NEGATIVE); Leukocyte Esterase Urine UA NEGATIVE (NEGATIVE); Nitrite Urine UA NEGATIVE (Negative); Occult Blood Urine UA TRACE-LYSED (Negative); Protein Urine UA NEGATIVE (Negative); Specific Gravity Urine UA 1.025 (1.000-1.035); Urobilinogen Urine UA 0.2 E.U./dL (0.2)
[2020-05-16 11:13] LABS: Bacteria Urine Few (2-10); Culture Indicated Urine Cult Not Indicated; RBC Urine 0-1/HPF (0-5/HPF); Squamous Epithelial Cell Urine 1-5 /HPF (0-5/HPF); WBC Urine 1-5/HPF (0-5/HPF)
[2020-05-16 11:16] LABS: Alanine Aminotransferase 40 IU/L (<35); Albumin 4.4 g/dL (3.5-5.0); Albumin Globulin Ratio 1.6 (1.0-2.8); Alkaline Phosphatase 101 U/L (38-126); Aspartate Aminotransferase 46 IU/L (14-36); BUN Creatinine Ratio 18.2 (6-22); Bilirubin Total 0.2 mg/dL (0.2-1.3); Bilirubin Unconjugated 0.3 mg/dL (0.0-1.1); Blood Urea Nitrogen 12 mg/dL (7-17); Carbon Dioxide 25 mmol/L (22-32); Chloride 104 mmol/L (98-107); Estimated Glomerular Filt Rate > 60.0 mL/min (>60); Globulin 2.8 g/dL (1.7-4.1); Glucose 97 mg/dL (70-100); HEMOLYSIS < 15 (0-50); Potassium 3.9 mmol/L (3.4-5.1); Sodium 140 mmol/L (137-145); Total Protein 7.2 g/dL (6.3-8.2)
[2020-05-16 11:45] LABS: TSH w/ Reflex to FT4 1.57 uIU/mL (0.47-4.68)
== END ==
PROVIDERS: PCP Nurse Practitioner Family; Referring Provider Nurse Practitioner Family; Visit Provider Nurse Practitioner Family
DX: R00.2 Palpitations (principal); R10.11 Right upper quadrant pain; R11.0 Nausea; R35.0 Frequency of micturition; R42 Dizziness and giddiness; R55 Syncope and collapse; K76.0 Fatty (change of) liver, not elsewhere classified
CPT/HCPCS: 36415; 80053; 80076; 81001; 84443; 85027

== ENCOUNTER → 2020-05-18 14:07 | Outpatient (CLI) | payer BC, SELFPAY ==
--- NOTE | 2020-05-18 14:09 | DI.RAD.S_ITS ---
PROCEDURE: XR CERVICAL SPINE 2V OR 3V INDICATIONS: neck strain after syncopal episode TECHNIQUE: 3 view(s) of the cervical spine were acquired. COMPARISON: [facility], CT, CT CERVICAL SPINE WO CON, 12/21/2017, 10:34. FINDINGS: Bones: No fractures or dislocations to the C7 level. The lateral masses of C1 appear intact on the odontoid view. No suspicious bony lesions. Mild multilevel intervertebral disc height loss most apparent at C5-6. Multilevel facet arthrosis. Soft tissues: No prevertebral soft tissue swelling. IMPRESSION: Multilevel cervical spondylosis without evidence of an acute bony abnormality. Dictated by: Zurdo Oglesby M.D. on 05/18/2020 at 13:30 Approved by: Zurdo Oglesby M.D. on 05/18/2020 at 13:32
== END ==
PROVIDERS: PCP Nurse Practitioner Family; Referring Provider Nurse Practitioner Family; Visit Provider Nurse Practitioner Family
DX: S16.1XXA Strain of muscle, fascia and tendon at neck level, initial encounter (principal); R55 Syncope and collapse
CPT/HCPCS: 72040

== ENCOUNTER → 2020-05-27 09:31 | Outpatient (CLI) | payer BC, SELFPAY ==
[2020-05-27 10:11] LABS: Bacteria Urine None Seen; RBC Urine None Seen (0-5/HPF); WBC Urine None Seen (0-5/HPF)
[2020-05-27 10:20] LABS: Appearance Urine UA CLEAR; Bilirubin Urine UA NEGATIVE (NEGATIVE); Color Urine UA YELLOW; Glucose Urine UA NEGATIVE (Negative); Ketones Urine UA NEGATIVE (NEGATIVE); Leukocyte Esterase Urine UA NEGATIVE (NEGATIVE); Nitrite Urine UA NEGATIVE (Negative); Occult Blood Urine UA NEGATIVE (Negative); Protein Urine UA NEGATIVE (Negative); Urobilinogen Urine UA 0.2 E.U./dL (0.2)
[2020-05-27 10:29] LABS: Culture Indicated Urine Cult Not Indicated; Urine Comments Microscopic Normal
--- NOTE | 2020-06-19 08:54 | PM.CARDMON.1 ---
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 Referral & Results Date Patient Seen: 05/27/20 Requesting provider: Dariel Almendarez Indication: Syncope Duration of monitoring (days): 7 Diary information: There were 9 patient triggered events and 9 patient diary entries All 18 these patient events were associated with (within 45 seconds), sinus rhythm, PACs, and PVCs Data: Minimum heart rate identified was 46 beats per minute at 04:56 on 06/03/2020 Maximum heart rate identified was 119 beats per minute at 06:42 on 05/29/2020 Less than 1% of identified beats were ventricular or supraventricular ectopic in origin, which would classify them as rare. 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 No etiology for syncope identified on this study.
== END ==
PROVIDERS: PCP Nurse Practitioner Family; Referring Provider Nurse Practitioner Family; Visit Provider Nurse Practitioner Family
DX: R55 Syncope and collapse (principal); R42 Dizziness and giddiness; R00.2 Palpitations; R35.0 Frequency of micturition
CPT/HCPCS: 81001; 93242; 93244

== ENCOUNTER → 2020-06-03 11:58 | Outpatient (CLI) | payer BC, SELFPAY ==
--- NOTE | 2020-06-03 11:59 | DI.MRI.S_ITS ---
PROCEDURE: MR HEAD/BRAIN WO/W CON INDICATIONS: Head injury TECHNIQUE: Noncontrast axial T1 spin echo, axial T2 fast spin echo, sagittal and axial FLAIR, coronal T2 fast spin echo, axial gradient echo, axial diffusion and ADC through the brain. After the administration of contrast, axial and coronal 3D VIBE or T1 spin echo with fat saturation through the brain. COMPARISON: [facility], CT, CT HEAD/BRAIN WO CON, 12/21/2017, 8:20. FINDINGS: Image quality: Excellent. CSF Spaces: Basal cisterns are patent. No extra-axial fluid collections. Ventricles are normal in size and shape. Brain: No midline shift. No intracranial bleeds or masses. No abnormal intracranial enhancement. The brainstem appears normal. Diffusion-weighted images demonstrate no acute ischemic insults. No chronic ischemic insults. Normal intravascular flow voids are present. Skull and face: Calvarial marrow is normal in signal. Orbits appear normal. Sinuses: Sinuses and mastoids appear clear. IMPRESSION: No acute intracranial abnormality. Dictated by: Teofilo Vazquez M.D. on 06/03/2020 at 13:39 Approved by: Teofilo Vazquez M.D. on 06/03/2020 at 13:51
--- NOTE | 2020-06-03 11:59 | DI.US.S_ITS ---
PROCEDURE: US ABDOMEN COMPLETE INDICATIONS: head injury. Elevated liver enzymes. TECHNIQUE: Real-time scanning was performed of the abdominal and retroperitoneal organs, with image documentation. COMPARISON: [facility] Ultrasound, US, US ABDOMEN, 05/08/2015, 9:47. FINDINGS: Liver: The liver demonstrates normal size. The liver demonstrates generalized moderately increased echogenicity. This decreases ultrasound sensitivity for detection of hepatic masses. Gallbladder: Removed. Biliary ducts: Intrahepatic bile ducts are non-dilated. Extrahepatic bile duct caliber measures 6 mm. Normal is 6-7 mm or less in diameter, or 10 mm or less post-cholecystectomy. Pancreas: Visualized portions of the pancreas are sonographically normal. Spleen: Spleen is normal in size and homogeneous in echotexture. Kidneys: Kidneys are normal in size and echotexture. Right kidney measures 10.2 cm long; left kidney measures 11.8 cm long. No hydronephrosis or nephrolithiasis. No solid masses. Aorta: Visualized aorta is normal in caliber at less than 3 cm. Iliacs: Proximal common iliac arteries are normal in caliber at less than 2.5 cm. IVC: Intrahepatic inferior vena cava is patent. Miscellaneous: No free abdominal fluid. IMPRESSION: The liver demonstrates increased echogenicity. This finding is nonspecific, yet it is most commonly attributed to fatty infiltration. Status post cholecystectomy, without biliary dilatation. Dictated by: Isaak Pineda M.D. on 06/03/2020 at 12:10 Approved by: Isaak Pineda M.D. on 06/03/2020 at 12:11
== END ==
PROVIDERS: PCP Nurse Practitioner Family; Referring Provider Nurse Practitioner Family; Visit Provider Nurse Practitioner Family
DX: R42 Dizziness and giddiness (principal); R55 Syncope and collapse; R10.11 Right upper quadrant pain; R74.8 Abnormal levels of other serum enzymes; S09.90XA Unspecified injury of head, initial encounter; X58.XXXA Exposure to other specified factors, initial encounter; Z90.49 Acquired absence of other specified parts of digestive tract
CPT/HCPCS: 70553; 76700

== ENCOUNTER → 2020-06-17 12:11 | Outpatient (CLI) | payer BC, SELFPAY ==
--- NOTE | 2020-06-17 12:12 | DI.ECHO.S_ITS ---
[facility] +---------+ : : [address] : : : : [id number] : : : : Phone: [phone]+ Echocardiogram Report + + :Name: JOSEY FREITAS Study Date: 06/17/2020 Height: 65 in : :[facility] ReadingLocation: Weight: 259 lb : : Gender: Female BSA: 2.2 m2 : :: 1965 Age: 54 yrs BP: 156/98 mmHg: :Reason For Study: Syncope : :Ordering Physician: TAMARA, : :ALESSIO Performed By: Kane Burris : :Referring: ALESSIO MCDONALD : + + Interpretation Summary Normal echo study. Procedure: A two-dimensional transthoracic echocardiogram with color flow and Doppler was performed. The study quality was technically adequate. There is no prior echocardiogram noted for this patient. Left Ventricle: The left ventricle is normal in size and wall thickness. Left ventricular systolic function is normal. The ejection fraction is estimated to be 60-65%. There are no focal wall motion abnormalities. Diastolic parameters suggest probable normal left ventricular diastolic function and normal filling pressures. Right Ventricle: The right ventricle is normal in size and function. Atria: Both atria are normal in size. There is no Doppler evidence for an interatrial shunt. Mitral Valve: The mitral valve is normal in structure and function. There is trace mitral regurgitation. Aortic Valve: The aortic valve is normal in structure and function. No aortic regurgitation is present. Tricuspid Valve: The tricuspid valve is normal in structure and function. No tricuspid regurgitation. Pulmonary artery pressures cannot be estimated because of the lack of a measurable TR jet velocity but the IVC suggests a CVP of around 3 mmHg. Pulmonic Valve: The pulmonic valve is not well seen, but is grossly normal. There is no pulmonic valvular regurgitation. Great Vessels: The aortic root is normal size. The ascending aorta could not be visualized. The IVC is of normal diameter and collapses greater than 50% with a sniff. This suggests a low right atrial pressure of 3 mm Hg. Pericardium/ Pleura There is no pericardial effusion. There is no pleural effusion. MMode/2D Measurements & Calculations LVIDd: 5.4 cm LVOT diam: 2.0 cm LVIDs: 3.8 cm Ao root diam: 2.9 cm FS: 30.8 % IVSd: 0.90 cm LVPWd: 0.76 cm LV yu. diameter/BSA (cm/m^2): 2.5 LV sys. diameter/BSA (cm/m^2): 1.7 LA A2 area: 12.5 cm2 RA area: 10.8 cm2 LA A4 area: 11.9 cm2 IVC diam: 1.7 cm LA length (vol): 4.1 cm LA vol: 30.7 ml LA vol index: 13.9 ml/m2 TAPSE: 2.2 cm Doppler Measurements & Calculations Ao V2 max: 149.3 cm/sec LVOT Max Dave: 121.9 cm/sec Ao V2 mean: 104.5 cm/sec LV V1 max P.9 mmHg Ao max P.9 mmHg LV V1 VTI: 25.2 cm Ao mean P.8 mmHg SCOTT(I,D): 2.7 cm2 Ao V2 VTI: 29.4 cm SCOTT(V,D): 2.5 cm2 sev ratio: 0.86 SCOTT indexed to BSA (cm^2/m^2): 1.2 MV E max dave: 92.1 cm/sec PA V2 max: 109.2 cm/sec MV A max dave: 70.3 cm/sec PA V2 mean: 81.6 cm/sec MV E/A: 1.3 PA mean P.9 mmHg Med Peak E' Dave: 9.1 cm/sec PA pr(Accel): 40.6 mmHg E/E' med: 10.2 Lat Peak E' Dave: 10.5 cm/sec E/E' lat: 8.7 E/e' average: 9.5 MV dec time: 0.20 sec SV(LVOT): 78.1 ml Electronically signed by: Regla Torres on Reading Physician:06/17/2020 02:08 PM
== END ==
PROVIDERS: Family Provider Nurse Practitioner Family; PCP Nurse Practitioner Family; Referring Provider Nurse Practitioner Family; Visit Provider Nurse Practitioner Family
DX: R55 Syncope and collapse (principal); R42 Dizziness and giddiness
CPT/HCPCS: 93306

== ENCOUNTER 2020-09-23 12:15 | Outpatient (RCR) | payer BC, SELFPAY ==
--- NOTE | 2020-07-01 12:45 | PT.OIE ---
Current Diagnoses Syncope and collapse (07/01/20) Strain of muscle, fascia and tendon at neck level, initial encounter (07/01/20) Past Medical History (Last Updated 06/26/20 @ 09:36 by CHANTELL Paige) Abnormal Pap smear of cervix (~1991) Anxiety (~1993) Cataracts, bilateral (~2016) Chicken pox Chronic back pain Depression Diabetes (~2008) Diabetes mellitus type 2, diet-controlled (04/2019) Dizziness (2017) Elevated blood pressure reading Elevated liver enzymes Episode of syncope (04/2020) Fatty liver (~2014) Foot pain (~2016) Hearing loss Hepatitis C (~1998) History of hepatitis C (1999) History of urinary incontinence (~2017) Insomnia Measles Mumps Myopia Nausea Neck strain (04/2020) Ovarian cyst (~1991) Palpitations Right upper quadrant pain (04/2020) Rotator cuff tear (10/2018) Shoulder pain (~2018) Tinnitus Type 2 diabetes mellitus (2009) Urinary frequency Vertigo (~2017) Past Surgical History (Last Updated 04/11/19 @ 20:16 by Flavia Yan) Anesthesia History of section History of cholecystectomy (~1992) History of hysterectomy (~1998) History of laparoscopy History of liver biopsy (~1997) History of tubal ligation (~1991) Hx of removal of ovary (~1991) Visit Care Team Role Provider Type CHANTELL Paige Family Provider Advanced 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 Facing Sand Primary Care Provider Specialty: [facility] Practice Address: [address] [place] [address], [facility] Email: [email or web address] Eliu Irwin MD Attending Provider Physician Referring Provider Specialty: [facility] Address: [address] [place] [address], [facility] Email: [email or web address] Physical Therapy Initial Evaluation PT-OP-A Visit Information Start: 06/20/20 15:58 Freq: Status: Active Protocol: Document 07/01/20 07:29 MB (Rec: 07/01/20 07:47 MB [id number]) Out-Patient Physical Therapy Visit Information Visit Information Visit Type Initial Evaluation Visit Note High deductible, 20 visits a year Visit Start Time 07:29 Visit Stop Time 08:14 Total Visit Minutes 45 Visit Number 03/06 Evaluation Information Evaluation Date 07/01/20 PT-OP-B Current Condition Start: 06/20/20 15:58 Freq: Status: Active Protocol: Document 07/01/20 07:29 MB (Rec: 07/01/20 07:47 MB [id number]) Current Condition History of Current Condition Onset Date April 2020 Current Complaints Severe headache that limits work History of Current Condition Pt states that she was taking her dog out in April and she fell on her front porch. She hit her head. She had another fall in 2018 where she tripped and she injured her right shoulder. She had PT on it and she got better. She is right handed. Pt reports tension and burning from her occiput down her back. She reports 8/10 pain. 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 Her pain is a lot worse with her work. She can barely do her job. She is having daily headaches. She cannot sleep well. Pt states that she was put on high blood pressure medicine on Wednesday. Pt has a history of feeling light-headed and a syncopal episode. A couple of years ago, she was diagnosed with concussion. She went to the ED and was given pills. Pt reports that her left arm sometimes goes numb when it is bent when she is sitting. PMH includes DM, elevated liver enzymes, Hep C, right ankle pain, severe ringing in both ears. Pt states that she gets to the point of tears at work. Prior Treatments and Tests MRI brain, jack spinner both NAD; US abdomen: cholecystectomy, liver echogenicity; cervical spine: multilevel cervical spondylosis. Treatment Goals Patient/Caregiver Goals To decrease headache PT-OP-C Subjective Start: 06/20/20 15:58 Freq: Status: Active Protocol: Document 07/01/20 07:29 MB (Rec: 07/01/20 07:47 MB [id number]) OP-PT Subjective Patient Comments Patient Comments See history of current condition Patient Questionnaires Neck Disability Index NDI Score 28 Neck Disability Index Impairment 40 to 59% Impaired (Score 20- 29) PT-OP-J Posture/Palpation/Skin Start: 06/20/20 15:58 Freq: Status: Active Protocol: Document 07/01/20 07:29 MB (Rec: 07/01/20 12:45 MB [id number]) Posture Evaluation Comments Posture Comments Standing posture: decreased cervical lordosis, Dowager's hump, decreased thoracic kyphosis, increased lumbar lordosis and anterior tilt pelvis, increased overall body mass, right shoulder is mildly higher than the left and right scapula is mildly more protracted and higher than the left, left iliac crest is higher than the right , B knee valgus, pronation left foot and supination right foot. Pt reports some fire pain in her posterior neck and shoulder blades with looking down. PT-OP-K Range of Motion Start: 06/20/20 15:58 Freq: Status: Active Protocol: Document 07/01/20 07:29 MB (Rec: 07/01/20 12:45 MB [id number]) Cervical Spine Range of Motion Cervical Spine Active Testing Position Standing Comments Self-limits cervical ROM testing d/t c/o fire pain with cervical flexion in standing and pt mildly tearful today Shoulder Goniometric Range of Motion Shoulder ROM Limitations Comments B shoulder flexion and abduction normal PT-OP-M Strength Start: 06/20/20 15:58 Freq: Status: Active Protocol: Document 07/01/20 07:29 MB (Rec: 07/01/20 12:45 MB [id number]) Shoulder Strength Shoulder Manual Muscle Testing Bilateral Flexion 5 Normal Abduction (C5) 5 Normal External Rotation 5 Normal Internal Rotation 5 Normal Elbow/Forearm Strength Elbow and Forearm Manual Muscle Testing Bilateral Flexion (C6) 5 Normal Extension (C7) 5 Normal Pronation 5 Normal Supination 5 Normal Wrist Strength Wrist Manual Muscle Testing Bilateral Flexion (C7) 5 Normal Extension (C6) 5 Normal PT-OP-Q Treatments Start: 06/20/20 15:58 Freq: Status: Active Protocol: Document 07/01/20 07:29 MB (Rec: 07/01/20 12:22 MB [id number]) Therapeutic Exercises Other Exercises Racquet ball self-massage Other Exercise Name Intrascapular muscles Side bilateral Comments Instructed today, pt performs and PT provides handouts Self-Care/Home Management Treatment Education Other Education Pt ed pt in signs and symptoms of concussion, propers sleeping position with neck and head support with towel roll and pillow, legs up on wedge, use of ice over forehead, log roll technique, benefits of getting a yoga mat and set up proper resting position with head and neck support at work as needed, headache care and good sleeping hygiene handouts PT-OP-T Assessment and Plan Start: 06/20/20 15:58 Freq: Status: Active Protocol: Document 07/01/20 07:29 MB (Rec: 07/01/20 12:45 MB [id number]) Physical Therapy Assessment Rehab Potential Rehabilitation Potential Fair Evaluation Complexity Number of Personal Factors/Comorbidities 1-2 Number of Body Systems Impaired 1-2 Clinical Presentation at Evaluation Evolving Impairments Impairments Activity Tolerance,Balance, Pain,Posture,ROM,Soft Tissue Mobility,Strength Other Impairments Personal factors include severity of pain, job requiring provocative position of pain (sitting and looking downward), body systems affected include musculoskeletal, neuromuscular , vestibular and visual motor, affect is tearful after concussion. Her clinical presentation is evolving. Other Concerns Fall Risk Yes Goals 3 Business Systems Technician Goal (LTG) Pt will perform progressive HEP with I including Buteyko Breathing, postural exercises, self-myofascial work, strengthening, balance and VOR exercises to improve pain and balance by 08/31/20. LTG Duration 8 weeks 2 [facility] Goal (LTG) Pt will perform WNLs on a standardized balance test to decrease fall risk by 08/31/20. LTG Duration 8 weeks 1 Impairment NDI reflects greater than 50% impairment Business Systems Technician Goal (LTG) Pt will present with an improved NDI score to reflect no more than 20% impairment to reflect improvement in function and quality of life by 08/31/20. LTG Duration 8 weeks Assessment Summary Assessment Pt is a 54 y/o female presenting two months out from a fall where she hit her head . 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 Cervical ROM testing is limited today d/t reports of pain. Oculomotor screen, orthostatic hypotension and pupil constriction testing are all normal today. B finger to nose is slow. Her BP and HR in LUE supine is 121/72, 54; standing 132/84, 60; standing 1' 137/85, 59. Pt does feel dizzy upon standing and this may be cervical in nature. She reports dizziness with looking down and given mechanism of injury and pain complaints, PT feels that her dizziness and headaches have strong cervicogenic component. PT will provide more concussion testing and education in future treatment sessions. Instructed pt in sleeping hygiene and headache self-care today and encouraged her to get a yoga mat and pillow to use during breaks at work. Also initiated instruction in use of racquet ball for self-massage. Pt will benefit from ongoing PT to improve pain, posture, relaxation, breathing, body mechanics, VOR and balance. Physical Therapy Plan Frequency and Duration Frequency of Treatment 2x/Week Duration of Treatment 8 weeks Plan of Care Start Date 07/01/20 Plan of Care End Date 09/02/20 Therapeutic Interventions Therapeutic Interventions Balance Training,Canalithic Repositioning,Coordination Training,Gait Training,Home Exercise Program,Joint Mobilizations,Manual Therapy, Neuromuscular Re-education, Patient/Caregiver Education, Self-Care/Home Management, Sensory Integration,Soft Tissue Mobilization,Taping, Therapeutic Activities, Therapeutic Exercises, Vestibular Rehabilitation Modalities Cold Pack/Ice Massage,Hot Packs Next Visit Focus/Plan Next Note Type Treatment Note Next Visit Plan Initiate drawing out concussion cascade and providing low inflammation diet info, consider giving a SCAT test, further VOMS training when ready, infraspinatus MWM with racquet ball, Buteyko Breathing in hook lying with head, neck and legs supported (this is priority over other testing)
--- NOTE | 2020-07-01 12:46 | PT.OPPOC ---
Physical, Occupational & Speech Therapy At [facility] Current Diagnoses Syncope and collapse (07/01/20) Strain of muscle, fascia and tendon at neck level, initial encounter (07/01/20) Visit Care Team Role Provider Type CHANTELL Paige Family Provider Advanced Conservation Assistant Primary Care Provider Specialty: [facility] Practice Address: [address] [place] [address], [id number] Email: [email or web address] Eliu Irwin MD Attending Provider Physician Referring Provider Specialty: [facility] Address: [address] [place] [address], [id number] Email: [email or web address] Plan Of Care PT-OP-T Assessment and Plan Start: 06/20/20 15:58 Freq: Status: Active Protocol: Document 07/01/20 07:29 MB (Rec: 07/01/20 12:45 MB [id number]) Physical Therapy Assessment Rehab Potential Rehabilitation Potential Fair Evaluation Complexity Number of Personal Factors/Comorbidities 1-2 Number of Body Systems Impaired 1-2 Clinical Presentation at Evaluation Evolving Impairments Impairments Activity Tolerance,Balance, Pain,Posture,ROM,Soft Tissue Mobility,Strength Other Impairments Personal factors include severity of pain, job requiring provocative position of pain (sitting and looking downward), body systems affected include musculoskeletal, neuromuscular , vestibular and visual motor, affect is tearful after concussion. Her clinical presentation is evolving. Other Concerns Fall Risk Yes Goals 3 Analytics Director Goal (LTG) Pt will perform progressive HEP with I including Buteyko Breathing, postural exercises, self-myofascial work, strengthening, balance and VOR exercises to improve pain and balance by 08/31/20. LTG Duration 8 weeks 2 [facility] Goal (LTG) Pt will perform WNLs on a standardized balance test to decrease fall risk by 08/31/20. LTG Duration 8 weeks 1 Impairment NDI reflects greater than 50% impairment Analytics Director Goal (LTG) Pt will present with an improved NDI score to reflect no more than 20% impairment to reflect improvement in function and quality of life by 08/31/20. LTG Duration 8 weeks Assessment Summary Assessment Pt is a 54 y/o female presenting two months out from a fall where she hit her head . 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 Cervical ROM testing is limited today d/t reports of pain. Oculomotor screen, orthostatic hypotension and pupil constriction testing are all normal today. B finger to nose is slow. Her BP and HR in LUE supine is 121/72, 54; standing 132/84, 60; standing 1' 137/85, 59. Pt does feel dizzy upon standing and this may be cervical in nature. She reports dizziness with looking down and given mechanism of injury and pain complaints, PT feels that her dizziness and headaches have strong cervicogenic component. PT will provide more concussion testing and education in future treatment sessions. Instructed pt in sleeping hygiene and headache self-care today and encouraged her to get a yoga mat and pillow to use during breaks at work. Also initiated instruction in use of racquet ball for self-massage. Pt will benefit from ongoing PT to improve pain, posture, relaxation, breathing, body mechanics, VOR and balance. Physical Therapy Plan Frequency and Duration Frequency of Treatment 2x/Week Duration of Treatment 8 weeks Plan of Care Start Date 07/01/20 Plan of Care End Date 09/02/20 Therapeutic Interventions Therapeutic Interventions Balance Training,Canalithic Repositioning,Coordination Training,Gait Training,Home Exercise Program,Joint Mobilizations,Manual Therapy, Neuromuscular Re-education, Patient/Caregiver Education, Self-Care/Home Management, Sensory Integration,Soft Tissue Mobilization,Taping, Therapeutic Activities, Therapeutic Exercises, Vestibular Rehabilitation Modalities Cold Pack/Ice Massage,Hot Packs Next Visit Focus/Plan Next Note Type Treatment Note Next Visit Plan Initiate drawing out concussion cascade and providing low inflammation diet info, consider giving a SCAT test, further VOMS training when ready, infraspinatus MWM with racquet ball, Buteyko Breathing in hook lying with head, neck and legs supported (this is priority over other testing) Plan of Care Dates Plan of Care Start Date 07/01/20 Plan of Care End Date 09/02/20 Electronically Signed by: Kayla Camarillo PT 07/01/20 1246 Please Sign and Return: I have reviewed this Plan of Care and certify that the skilled therapy services above are required to meet the patient?s needs. Physician Signature Date Printed Name and Credentials Clinical Instructor Signature Printed Name and Credentials
--- NOTE | 2020-07-04 15:35 | PT.OTN ---
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 She hit her head. She had another fall in 2018 where she tripped and she injured her right shoulder. She had PT on it and she got better. She is right handed. Pt reports tension and burning from her occiput down her back. She reports 8/10 pain. 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 Her pain is a lot worse with her work. She can barely do her job. She is having daily headaches. She cannot sleep well. Pt states that she was put on high blood pressure medicine on Wednesday. Pt has a history of feeling light-headed and a syncopal episode. A couple of years ago, she was diagnosed with concussion. She went to the ED and was given pills. Pt reports that her left arm sometimes goes numb when it is bent when she is sitting. PMH includes DM, elevated liver enzymes, Hep C, right ankle pain, severe ringing in both ears. Pt states that she gets to the point of tears at work. Prior Treatments and Tests MRI brain, bridge tender both NAD; US abdomen: cholecystectomy, liver echogenicity; cervical spine: multilevel cervical spondylosis. Treatment Goals Patient/Caregiver Goals To decrease headache PT-OP-C Subjective Start: 06/20/20 15:58 Freq: Status: Active Protocol: Document 07/04/20 15:21 [facility] (Rec: 07/04/20 15:35 [facility] [id number]) OP-PT Subjective Patient Comments Patient Comments Pt reports when this had initially stated she tried to dec diet soda as she drank several a day and changed to reg soda which made her nausea so stopped soda all togeher. Now drinks only water and a couple cups of iced tea (for caffiene). Notes she barely is able to eat anything d/t her nausea so yesterday all she ate was a little bit of the toppings off a piece of pizza her had ordered. PT-OP-J Posture/Palpation/Skin Start: 06/20/20 15:58 Freq: Status: Active Protocol: Document 07/01/20 07:29 MB (Rec: 07/01/20 12:45 MB [id number]) Posture Evaluation Comments Posture Comments Standing posture: decreased cervical lordosis, Dowager's hump, decreased thoracic kyphosis, increased lumbar lordosis and anterior tilt pelvis, increased overall body mass, right shoulder is mildly higher than the left and right scapula is mildly more protracted and higher than the left, left iliac crest is higher than the right , B knee valgus, pronation left foot and supination right foot. Pt reports some fire pain in her posterior neck and shoulder blades with looking down. PT-OP-K Range of Motion Start: 06/20/20 15:58 Freq: Status: Active Protocol: Document 07/01/20 07:29 MB (Rec: 07/01/20 12:45 MB [id number]) Cervical Spine Range of Motion Cervical Spine Active Testing Position Standing Comments Self-limits cervical ROM testing d/t c/o fire pain with cervical flexion in standing and pt mildly tearful today Shoulder Goniometric Range of Motion Shoulder ROM Limitations Comments B shoulder flexion and abduction normal PT-OP-M Strength Start: 06/20/20 15:58 Freq: Status: Active Protocol: Document 07/01/20 07:29 MB (Rec: 07/01/20 12:45 MB [id number]) Shoulder Strength Shoulder Manual Muscle Testing Bilateral Flexion 5 Normal Abduction (C5) 5 Normal External Rotation 5 Normal Internal Rotation 5 Normal Elbow/Forearm Strength Elbow and Forearm Manual Muscle Testing Bilateral Flexion (C6) 5 Normal Extension (C7) 5 Normal Pronation 5 Normal Supination 5 Normal Wrist Strength Wrist Manual Muscle Testing Bilateral Flexion (C7) 5 Normal Extension (C6) 5 Normal PT-OP-Q Treatments Start: 06/20/20 15:58 Freq: Status: Active Protocol: Document 07/04/20 15:21 [facility] (Rec: 07/04/20 15:35 [facility] [id number]) Therapeutic Exercises Sidelying Exercises open book Side bilateral Reps/Minutes 12 Standing Exercises pec stretch Standing Exercise Name 1. doorway arms ext 2. corner arms at 90/90 Side bilateral Reps/Minutes 30 sec ea Comments focus on neutral spine & neck position Therapeutic Activity Therapeutic Activity sleep position Name supine sleep position Comments 2 pillows under legs (support upper and lower legs, improtance of pillow only under neck and head not shoulders, arms propped w/ pillows and discussed option for towel under LB in needs further support Manual Therapy Treatment Soft Tissue Mobilization cervical region Body Location B UTs, LS, SO, cervical paraspinals Mobilization Type Myofascial Release,Rolling, Strumming,Sustained Pressure Intensity/Depth Moderate Body Position Hooklying cranial fascia Mobilization Type Myofascial Release Intensity/Depth Superficial Body Position Hooklying Self-Care/Home Management Treatment Education Other Education why tspine mobility important PT-OP-T Assessment and Plan Start: 06/20/20 15:58 Freq: Status: Active Protocol: Document 07/04/20 15:21 [facility] (Rec: 07/04/20 15:35 [facility] [id number]) Physical Therapy Assessment Goals 3 Custodial Goal (LTG) Pt will perform progressive HEP with I including Buteyko Breathing, postural exercises, self-myofascial work, strengthening, balance and VOR exercises to improve pain and balance by 08/31/20. LTG Duration 8 weeks 2 Custodial Goal (LTG) Pt will perform WNLs on a standardized balance test to decrease fall risk by 08/31/20. LTG Duration 8 weeks 1 Impairment NDI reflects greater than 50% impairment Fur Blowing Machine Attendant Goal (LTG) Pt will present with an improved NDI score to reflect no more than 20% impairment to reflect improvement in function and quality of life by 08/31/20. LTG Duration 8 weeks Assessment Summary Assessment Pt tolerated session well with notable L>R tightness but signfiicant restriction of ability for scap to have any downward movement B. She was able to tolerate exercises without inc pain. Discussed use of exercises during work ( standing ones) to reverse time spent bent fwd. Worked on sleep position which pt noted comfort and feeling of more support w/PT instruction. Physical Therapy Plan Frequency and Duration Frequency of Treatment 2x/Week Duration of Treatment 8 weeks Plan of Care Start Date 07/01/20 Plan of Care End Date 09/02/20 Next Visit Focus/Plan Next Note Type Treatment Note Next Visit Plan Initiate drawing out concussion cascade and providing low inflammation diet info, consider giving a SCAT test, further VOMS training when ready, infraspinatus MWM with racquet ball, Buteyko Breathing in hook lying with head, neck and legs supported (this is priority over other testing) Cont to work on thoracic mobility at tolerated
--- NOTE | 2020-07-08 10:29 | PT.OTN ---
Current Diagnoses Syncope and collapse (07/08/20) Strain of muscle, fascia and tendon at neck level, initial encounter (07/08/20) Physical Therapy Treatment Note PT-OP-A Visit Information Start: 06/20/20 15:58 Freq: Status: Active Protocol: Document 07/08/20 09:47 MB (Rec: 07/08/20 10:29 MB [id number]) Out-Patient Physical Therapy Visit Information Visit Information Visit Type Treatment Note Visit Note High deductible, 20 visits a year Visit Start Time 09:47 Visit Stop Time 10:27 Total Visit Minutes 40 Visit Number 3 PT-OP-B Current Condition Start: 06/20/20 15:58 Freq: Status: Active Protocol: Document 07/01/20 07:29 MB (Rec: 07/01/20 07:47 MB [id number]) Current Condition History of Current Condition Onset Date April 2020 Current Complaints Severe headache that limits work History of Current Condition Pt states that she was taking her dog out in April and she fell on her front porch. She hit her head. She had another fall in 2018 where she tripped and she injured her right shoulder. She had PT on it and she got better. She is right handed. Pt reports tension and burning from her occiput down her back. She reports 8/10 pain. 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 Her pain is a lot worse with her work. She can barely do her job. She is having daily headaches. She cannot sleep well. Pt states that she was put on high blood pressure medicine on Wednesday. Pt has a history of feeling light-headed and a syncopal episode. A couple of years ago, she was diagnosed with concussion. She went to the ED and was given pills. Pt reports that her left arm sometimes goes numb when it is bent when she is sitting. PMH includes DM, elevated liver enzymes, Hep C, right ankle pain, severe ringing in both ears. Pt states that she gets to the point of tears at work. 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 Treatment Goals Patient/Caregiver Goals To decrease headache PT-OP-C Subjective Start: 06/20/20 15:58 Freq: Status: Active Protocol: Document 07/08/20 09:47 MB (Rec: 07/08/20 10:29 MB [id number]) OP-PT Subjective Patient Comments Patient Comments Not much has changed. She is doing her stretches at work and at night before she goes to bed. Her arms tingled when she was lying on her back with towel roll support a neck. PT-OP-J Posture/Palpation/Skin Start: 06/20/20 15:58 Freq: Status: Active Protocol: Document 07/01/20 07:29 MB (Rec: 07/01/20 12:45 MB [id number]) Posture Evaluation Comments Posture Comments Standing posture: decreased cervical lordosis, Dowager's hump, decreased thoracic kyphosis, increased lumbar lordosis and anterior tilt pelvis, increased overall body mass, right shoulder is mildly higher than the left and right scapula is mildly more protracted and higher than the left, left iliac crest is higher than the right , B knee valgus, pronation left foot and supination right foot. Pt reports some fire pain in her posterior neck and shoulder blades with looking down. PT-OP-K Range of Motion Start: 06/20/20 15:58 Freq: Status: Active Protocol: Document 07/01/20 07:29 MB (Rec: 07/01/20 12:45 MB [id number]) Cervical Spine Range of Motion Cervical Spine Active Testing Position Standing Comments Self-limits cervical ROM testing d/t c/o fire pain with cervical flexion in standing and pt mildly tearful today Shoulder Goniometric Range of Motion Shoulder ROM Limitations Comments B shoulder flexion and abduction normal PT-OP-M Strength Start: 06/20/20 15:58 Freq: Status: Active Protocol: Document 07/01/20 07:29 MB (Rec: 07/01/20 12:45 MB [id number]) Shoulder Strength Shoulder Manual Muscle Testing Bilateral Flexion 5 Normal Abduction (C5) 5 Normal External Rotation 5 Normal Internal Rotation 5 Normal Elbow/Forearm Strength Elbow and Forearm Manual Muscle Testing Bilateral Flexion (C6) 5 Normal Extension (C7) 5 Normal Pronation 5 Normal Supination 5 Normal Wrist Strength Wrist Manual Muscle Testing Bilateral Flexion (C7) 5 Normal Extension (C6) 5 Normal PT-OP-Q Treatments Start: 06/20/20 15:58 Freq: Status: Active Protocol: Document 07/08/20 09:47 MB (Rec: 07/08/20 10:29 MB [id number]) Therapeutic Exercises Supine Exercises Buteyko breathing Supine Exercise Name Ed pt in theory, purpose, ed and practice reduced breathing and diaphragm Comments See assessment for details Self-Care/Home Management Treatment Education Other Education PT draws out and ed pt in concussion cascade, many reasons for dizziness including metabolic, blood supply, vestibular/visual, whiplash and psychological. Provided low inflammatory diet info, ongoing ed about hydration, try rest position at work. Ed pt to take in her racquet ball to work for use. Re-ed in proper sleeping position. PT-OP-T Assessment and Plan Start: 06/20/20 15:58 Freq: Status: Active Protocol: Document 07/08/20 09:47 MB (Rec: 07/08/20 10:29 MB [id number]) Physical Therapy Assessment Rehab Potential Rehabilitation Potential Fair Evaluation Complexity Number of Personal Factors/Comorbidities 1-2 Number of Body Systems Impaired 1-2 Clinical Presentation at Evaluation Evolving Impairments Impairments Activity Tolerance,Balance, Pain,Posture,ROM,Soft Tissue Mobility,Strength Other Impairments Personal factors include severity of pain, job requiring provocative position of pain (sitting and looking downward), body systems affected include musculoskeletal, neuromuscular , vestibular and visual motor, affect is tearful after concussion. Her clinical presentation is evolving. Other Concerns Fall Risk Yes Goals 3 Production Packager Goal (LTG) Pt will perform progressive HEP with I including Buteyko Breathing, postural exercises, self-myofascial work, strengthening, balance and VOR exercises to improve pain and balance by 08/31/20. LTG Duration 8 weeks 2 Fdc Goal (LTG) Pt will perform WNLs on a standardized balance test to decrease fall risk by 08/31/20. LTG Duration 8 weeks 1 Impairment NDI reflects greater than 50% impairment Production Packager Goal (LTG) Pt will present with an improved NDI score to reflect no more than 20% impairment to reflect improvement in function and quality of life by 08/31/20. LTG Duration 8 weeks Assessment Summary Assessment Buteyko breathing training and practice today with pt hook lying with legs supported and head and neck supported: HR and O2 sats in left index finger before startin BPM and sats 95%. 1st rep: 12 sec and sats increased to 97% and HR 53 BPM; 2nd rep: 14 sec, sats 98%; 3rd rep not counted. 4th rep: HR 53 BPM, O2 sats 98%, ed in diaphragm. Pt tends to finn through exercises and PT must cue her to slow down. Once cued again, she can perform with diaphragm movement. PT ed pt to con't breathing throughout the work day and at times of stress and to help go to sleep. Overall, her O2 sats are higher with exercise, 97%. Physical Therapy Plan Frequency and Duration Frequency of Treatment 2x/Week Duration of Treatment 8 weeks Plan of Care Start Date 07/01/20 Plan of Care End Date 09/02/20 Therapeutic Interventions Therapeutic Interventions Balance Training,Canalithic Repositioning,Coordination Training,Gait Training,Home Exercise Program,Joint Mobilizations,Manual Therapy, Neuromuscular Re-education, Patient/Caregiver Education, Self-Care/Home Management, Sensory Integration,Soft Tissue Mobilization,Taping, Therapeutic Activities, Therapeutic Exercises, Vestibular Rehabilitation Modalities Cold Pack/Ice Massage,Hot Packs Next Visit Focus/Plan Next Note Type Treatment Note Next Visit Plan VOMS training when ready, infraspinatus MWM with racquet ball, open book and other thoracic and breathing exercises
--- NOTE | 2020-07-10 08:58 | PT.OTN ---
Current Diagnoses Syncope and collapse (07/10/20) Strain of muscle, fascia and tendon at neck level, initial encounter (07/10/20) Physical Therapy Treatment Note PT-OP-A Visit Information Start: 06/20/20 15:58 Freq: Status: Active Protocol: Document 07/10/20 08:17 MB (Rec: 07/10/20 08:58 MB [id number]) Out-Patient Physical Therapy Visit Information Visit Information Visit Type Treatment Note Visit Note High deductible, 20 visits a year Visit Start Time 08:17 Visit Stop Time 08:57 Total Visit Minutes 40 Visit Number 4 PT-OP-B Current Condition Start: 06/20/20 15:58 Freq: Status: Active Protocol: Document 07/01/20 07:29 MB (Rec: 07/01/20 07:47 MB [id number]) Current Condition History of Current Condition Onset Date April 2020 Current Complaints Severe headache that limits work History of Current Condition Pt states that she was taking her dog out in April and she fell on her front porch. She hit her head. She had another fall in 2018 where she tripped and she injured her right shoulder. She had PT on it and she got better. She is right handed. Pt reports tension and burning from her occiput down her back. She reports 8/10 pain. 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 Her pain is a lot worse with her work. She can barely do her job. She is having daily headaches. She cannot sleep well. Pt states that she was put on high blood pressure medicine on Wednesday. Pt has a history of feeling light-headed and a syncopal episode. A couple of years ago, she was diagnosed with concussion. She went to the ED and was given pills. Pt reports that her left arm sometimes goes numb when it is bent when she is sitting. PMH includes DM, elevated liver enzymes, Hep C, right ankle pain, severe ringing in both ears. Pt states that she gets to the point of tears at work. Prior Treatments and Tests MRI brain, color television console monitor both NAD; US abdomen: cholecystectomy, liver echogenicity; cervical spine: multilevel cervical spondylosis. Treatment Goals Patient/Caregiver Goals To decrease headache PT-OP-C Subjective Start: 06/20/20 15:58 Freq: Status: Active Protocol: Document 07/10/20 08:17 MB (Rec: 07/10/20 08:58 MB [id number]) OP-PT Subjective Patient Comments Patient Comments Pt states that she used the breathing to fall asleep last night. PT-OP-J Posture/Palpation/Skin Start: 06/20/20 15:58 Freq: Status: Active Protocol: Document 07/01/20 07:29 MB (Rec: 07/01/20 12:45 MB [id number]) Posture Evaluation Comments Posture Comments Standing posture: decreased cervical lordosis, Dowager's hump, decreased thoracic kyphosis, increased lumbar lordosis and anterior tilt pelvis, increased overall body mass, right shoulder is mildly higher than the left and right scapula is mildly more protracted and higher than the left, left iliac crest is higher than the right , B knee valgus, pronation left foot and supination right foot. Pt reports some fire pain in her posterior neck and shoulder blades with looking down. PT-OP-K Range of Motion Start: 06/20/20 15:58 Freq: Status: Active Protocol: Document 07/01/20 07:29 MB (Rec: 07/01/20 12:45 MB [id number]) Cervical Spine Range of Motion Cervical Spine Active Testing Position Standing Comments Self-limits cervical ROM testing d/t c/o fire pain with cervical flexion in standing and pt mildly tearful today Shoulder Goniometric Range of Motion Shoulder ROM Limitations Comments B shoulder flexion and abduction normal PT-OP-M Strength Start: 06/20/20 15:58 Freq: Status: Active Protocol: Document 07/01/20 07:29 MB (Rec: 07/01/20 12:45 MB [id number]) Shoulder Strength Shoulder Manual Muscle Testing Bilateral Flexion 5 Normal Abduction (C5) 5 Normal External Rotation 5 Normal Internal Rotation 5 Normal Elbow/Forearm Strength Elbow and Forearm Manual Muscle Testing Bilateral Flexion (C6) 5 Normal Extension (C7) 5 Normal Pronation 5 Normal Supination 5 Normal Wrist Strength Wrist Manual Muscle Testing Bilateral Flexion (C7) 5 Normal Extension (C6) 5 Normal PT-OP-Q Treatments Start: 06/20/20 15:58 Freq: Status: Active Protocol: Document 07/10/20 08:17 MB (Rec: 07/10/20 08:58 MB [id number]) Manual Therapy Treatment Other Other Manual Treatments Pt reports good eye pressure. Pt agrees to Counterstrain to assess and treat fascial tension and pt presents with tension in the follow fascial systems: right facial nerve, left sinuvertebral, parasympathetic. PT treats stacks in the following fascial systems: facial nerve and sinuvertebral scan improves, and PT treats cervical DPRs. Subccipital release PT-OP-T Assessment and Plan Start: 06/20/20 15:58 Freq: Status: Active Protocol: Document 07/10/20 08:17 MB (Rec: 07/10/20 08:58 MB [id number]) Physical Therapy Assessment Rehab Potential Rehabilitation Potential Fair Evaluation Complexity Number of Personal Factors/Comorbidities 1-2 Number of Body Systems Impaired 1-2 Clinical Presentation at Evaluation Evolving Impairments Impairments Activity Tolerance,Balance, Pain,Posture,ROM,Soft Tissue Mobility,Strength Other Impairments Personal factors include severity of pain, job requiring provocative position of pain (sitting and looking downward), body systems affected include musculoskeletal, neuromuscular , vestibular and visual motor, affect is tearful after concussion. Her clinical presentation is evolving. Other Concerns Fall Risk Yes Goals 3 Bus Greaser Goal (LTG) Pt will perform progressive HEP with I including Buteyko Breathing, postural exercises, self-myofascial work, strengthening, balance and VOR exercises to improve pain and balance by 08/31/20. LTG Duration 8 weeks 2 Bus Greaser Goal (LTG) Pt will perform WNLs on a standardized balance test to decrease fall risk by 08/31/20. LTG Duration 8 weeks 1 Impairment NDI reflects greater than 50% impairment Half-Way Goal (LTG) Pt will present with an improved NDI score to reflect no more than 20% impairment to reflect improvement in function and quality of life by 08/31/20. LTG Duration 8 weeks Assessment Summary Assessment Initiated Counterstrain to assess and treat fascial tension and pt responds well initially to treatment and will con't to monitor. Given mechanism of injury and complaints, consider manual treatment for C1 for fascial systems and then work into periosteal, especially for the cranium. Physical Therapy Plan Frequency and Duration Frequency of Treatment 2x/Week Duration of Treatment 8 weeks Plan of Care Start Date 07/01/20 Plan of Care End Date 09/02/20 Therapeutic Interventions Therapeutic Interventions Balance Training,Canalithic Repositioning,Coordination Training,Gait Training,Home Exercise Program,Joint Mobilizations,Manual Therapy, Neuromuscular Re-education, Patient/Caregiver Education, Self-Care/Home Management, Sensory Integration,Soft Tissue Mobilization,Taping, Therapeutic Activities, Therapeutic Exercises, Vestibular Rehabilitation Modalities Cold Pack/Ice Massage,Hot Packs Next Visit Focus/Plan Next Note Type Treatment Note Next Visit Plan Similar: VOMS training when ready, infraspinatus MWM with racquet ball, open book and other thoracic and breathing exercises, pect stretch with rib breathing with open book, intrascapular and shoulder ER strengthening that can be done at home
--- NOTE | 2020-07-16 08:15 | PT.OTN ---
Current Diagnoses Syncope and collapse (07/16/20) Strain of muscle, fascia and tendon at neck level, initial encounter (07/16/20) Physical Therapy Treatment Note PT-OP-A Visit Information Start: 06/20/20 15:58 Freq: Status: Active Protocol: Document 07/16/20 07:33 MB (Rec: 07/16/20 08:10 MB [id number]) Out-Patient Physical Therapy Visit Information Visit Information Visit Type Treatment Note Visit Note High deductible, 20 visits a year Visit Start Time 07:33 Visit Stop Time 08:13 Total Visit Minutes 40 Visit Number 5 PT-OP-B Current Condition Start: 06/20/20 15:58 Freq: Status: Active Protocol: Document 07/01/20 07:29 MB (Rec: 07/01/20 07:47 MB [id number]) Current Condition History of Current Condition Onset Date April 2020 Current Complaints Severe headache that limits work History of Current Condition Pt states that she was taking her dog out in April and she fell on her front porch. She hit her head. She had another fall in 2018 where she tripped and she injured her right shoulder. She had PT on it and she got better. She is right handed. Pt reports tension and burning from her occiput down her back. She reports 8/10 pain. 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 Her pain is a lot worse with her work. She can barely do her job. She is having daily headaches. She cannot sleep well. Pt states that she was put on high blood pressure medicine on Wednesday. Pt has a history of feeling light-headed and a syncopal episode. A couple of years ago, she was diagnosed with concussion. She went to the ED and was given pills. Pt reports that her left arm sometimes goes numb when it is bent when she is sitting. PMH includes DM, elevated liver enzymes, Hep C, right ankle pain, severe ringing in both ears. Pt states that she gets to the point of tears at work. Prior Treatments and Tests MRI brain, library monitor both NAD; US abdomen: cholecystectomy, liver echogenicity; cervical spine: multilevel cervical spondylosis. Treatment Goals Patient/Caregiver Goals To decrease headache PT-OP-C Subjective Start: 06/20/20 15:58 Freq: Status: Active Protocol: Document 07/16/20 07:33 MB (Rec: 07/16/20 08:10 MB [id number]) OP-PT Subjective Patient Comments Patient Comments Pt states that she went back to the doctor and got a Tordol shot and states that she is going to be referred to a neurologist. She got an anti- nausea pill. PT-OP-J Posture/Palpation/Skin Start: 06/20/20 15:58 Freq: Status: Active Protocol: Document 07/01/20 07:29 MB (Rec: 07/01/20 12:45 MB [id number]) Posture Evaluation Comments Posture Comments Standing posture: decreased cervical lordosis, Dowager's hump, decreased thoracic kyphosis, increased lumbar lordosis and anterior tilt pelvis, increased overall body mass, right shoulder is mildly higher than the left and right scapula is mildly more protracted and higher than the left, left iliac crest is higher than the right , B knee valgus, pronation left foot and supination right foot. Pt reports some fire pain in her posterior neck and shoulder blades with looking down. PT-OP-K Range of Motion Start: 06/20/20 15:58 Freq: Status: Active Protocol: Document 07/01/20 07:29 MB (Rec: 07/01/20 12:45 MB [id number]) Cervical Spine Range of Motion Cervical Spine Active Testing Position Standing Comments Self-limits cervical ROM testing d/t c/o fire pain with cervical flexion in standing and pt mildly tearful today Shoulder Goniometric Range of Motion Shoulder ROM Limitations Comments B shoulder flexion and abduction normal PT-OP-M Strength Start: 06/20/20 15:58 Freq: Status: Active Protocol: Document 07/01/20 07:29 MB (Rec: 07/01/20 12:45 MB [id number]) Shoulder Strength Shoulder Manual Muscle Testing Bilateral Flexion 5 Normal Abduction (C5) 5 Normal External Rotation 5 Normal Internal Rotation 5 Normal Elbow/Forearm Strength Elbow and Forearm Manual Muscle Testing Bilateral Flexion (C6) 5 Normal Extension (C7) 5 Normal Pronation 5 Normal Supination 5 Normal Wrist Strength Wrist Manual Muscle Testing Bilateral Flexion (C7) 5 Normal Extension (C6) 5 Normal PT-OP-Q Treatments Start: 06/20/20 15:58 Freq: Status: Active Protocol: Document 07/16/20 07:33 MB (Rec: 07/16/20 08:10 MB [id number]) Therapeutic Exercises Sitting Exercises Thoracic rotation in sitting Side bilateral Comments 3 reps each side with breathing end-range Standing Exercises Thoracic mobility with kids ball Comments Performed over thoracic spine and ribs pec stretch Standing Exercise Name Standing in doorway Side bilateral Comments Ed pt to perform this at work Other Exercises Use of back community development technician/theracane Other Exercise Name Levator scapulae and upper traps MWM Side bilateral Comments Focus on levator scapula and SB head away Racquet ball self-massage Other Exercise Name Intrascapular massage, MWM infraspinatus and upper traps Side bilateral Comments Pt performs B with cues, massage and and MWM PT-OP-T Assessment and Plan Start: 06/20/20 15:58 Freq: Status: Active Protocol: Document 07/16/20 07:33 MB (Rec: 07/16/20 08:10 MB [id number]) Physical Therapy Assessment Rehab Potential Rehabilitation Potential Fair Evaluation Complexity Number of Personal Factors/Comorbidities 1-2 Number of Body Systems Impaired 1-2 Clinical Presentation at Evaluation Evolving Impairments Impairments Activity Tolerance,Balance, Pain,Posture,ROM,Soft Tissue Mobility,Strength Other Impairments Personal factors include severity of pain, job requiring provocative position of pain (sitting and looking downward), body systems affected include musculoskeletal, neuromuscular , vestibular and visual motor, affect is tearful after concussion. Her clinical presentation is evolving. Other Concerns Fall Risk Yes Goals 3 Pearl Diver Goal (LTG) Pt will perform progressive HEP with I including Buteyko Breathing, postural exercises, self-myofascial work, strengthening, balance and VOR exercises to improve pain and balance by 08/31/20. LTG Duration 8 weeks 2 Skilled Nursing Goal (LTG) Pt will perform WNLs on a standardized balance test to decrease fall risk by 08/31/20. LTG Duration 8 weeks 1 Impairment NDI reflects greater than 50% impairment Skilled Nursing Goal (LTG) Pt will present with an improved NDI score to reflect no more than 20% impairment to reflect improvement in function and quality of life by 08/31/20. LTG Duration 8 weeks Assessment Summary Assessment Further self-massage and MWM training today to assist with myosfascial tension. Performed these on both sides and with extensive practice and education and this takes a lot of time for treatment. Ed pt to perform racquet ball massage, thoracic rotation and pect stretches at work. Physical Therapy Plan Frequency and Duration Frequency of Treatment 2x/Week Duration of Treatment 8 weeks Plan of Care Start Date 07/01/20 Plan of Care End Date 09/02/20 Therapeutic Interventions Therapeutic Interventions Balance Training,Canalithic Repositioning,Coordination Training,Gait Training,Home Exercise Program,Joint Mobilizations,Manual Therapy, Neuromuscular Re-education, Patient/Caregiver Education, Self-Care/Home Management, Sensory Integration,Soft Tissue Mobilization,Taping, Therapeutic Activities, Therapeutic Exercises, Vestibular Rehabilitation Modalities Cold Pack/Ice Massage,Hot Packs Next Visit Focus/Plan Next Note Type Treatment Note Next Visit Plan VOMS training when ready, pect stretch with rib breathing with open book, intrascapular and shoulder ER strengthening that can be done at home, self-SCM massage
--- NOTE | 2020-07-18 07:54 | PT-OP ANOTE ---
Pt does not show for appointment. PT calls pt. Pt states that her appointment time on her phone is 0815. PT lets pt know her next appointment date and time.
--- NOTE | 2020-07-25 09:10 | PT.OTN ---
Current Diagnoses Syncope and collapse (07/25/20) Strain of muscle, fascia and tendon at neck level, initial encounter (07/25/20) Physical Therapy Treatment Note PT-OP-A Visit Information Start: 06/20/20 15:58 Freq: Status: Active Protocol: Document 07/25/20 08:16 MB (Rec: 07/25/20 08:58 MB [id number]) Out-Patient Physical Therapy Visit Information Visit Information Visit Type Treatment Note Visit Note High deductible, 20 visits a year Visit Start Time 08:16 Visit Stop Time 09:00 Total Visit Minutes 44 Visit Number 6 PT-OP-B Current Condition Start: 06/20/20 15:58 Freq: Status: Active Protocol: Document 07/01/20 07:29 MB (Rec: 07/01/20 07:47 MB [id number]) Current Condition History of Current Condition Onset Date April 2020 Current Complaints Severe headache that limits work History of Current Condition Pt states that she was taking her dog out in April and she fell on her front porch. She hit her head. She had another fall in 2018 where she tripped and she injured her right shoulder. She had PT on it and she got better. She is right handed. Pt reports tension and burning from her occiput down her back. She reports 8/10 pain. 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 Her pain is a lot worse with her work. She can barely do her job. She is having daily headaches. She cannot sleep well. Pt states that she was put on high blood pressure medicine on Wednesday. Pt has a history of feeling light-headed and a syncopal episode. A couple of years ago, she was diagnosed with concussion. She went to the ED and was given pills. Pt reports that her left arm sometimes goes numb when it is bent when she is sitting. PMH includes DM, elevated liver enzymes, Hep C, right ankle pain, severe ringing in both ears. Pt states that she gets to the point of tears at work. Prior Treatments and Tests MRI brain, library monitor both NAD; US abdomen: cholecystectomy, liver echogenicity; cervical spine: multilevel cervical spondylosis. Treatment Goals Patient/Caregiver Goals To decrease headache PT-OP-C Subjective Start: 06/20/20 15:58 Freq: Status: Active Protocol: Document 07/25/20 08:16 MB (Rec: 07/25/20 08:58 MB [id number]) OP-PT Subjective Patient Comments Patient Comments Pt is tearful. She could not leave her bathroom on her last scheduled appointment d/t irritable bowel. She has been unable to eat a lot. Her stomach has been bother ing her. Even her gums felt swollen this morning. She feels swimmy headed when up. PT-OP-J Posture/Palpation/Skin Start: 06/20/20 15:58 Freq: Status: Active Protocol: Document 07/01/20 07:29 MB (Rec: 07/01/20 12:45 MB [id number]) Posture Evaluation Comments Posture Comments Standing posture: decreased cervical lordosis, Dowager's hump, decreased thoracic kyphosis, increased lumbar lordosis and anterior tilt pelvis, increased overall body mass, right shoulder is mildly higher than the left and right scapula is mildly more protracted and higher than the left, left iliac crest is higher than the right , B knee valgus, pronation left foot and supination right foot. Pt reports some fire pain in her posterior neck and shoulder blades with looking down. PT-OP-K Range of Motion Start: 06/20/20 15:58 Freq: Status: Active Protocol: Document 07/01/20 07:29 MB (Rec: 07/01/20 12:45 MB [id number]) Cervical Spine Range of Motion Cervical Spine Active Testing Position Standing Comments Self-limits cervical ROM testing d/t c/o fire pain with cervical flexion in standing and pt mildly tearful today Shoulder Goniometric Range of Motion Shoulder ROM Limitations Comments B shoulder flexion and abduction normal PT-OP-M Strength Start: 06/20/20 15:58 Freq: Status: Active Protocol: Document 07/01/20 07:29 MB (Rec: 07/01/20 12:45 MB [id number]) Shoulder Strength Shoulder Manual Muscle Testing Bilateral Flexion 5 Normal Abduction (C5) 5 Normal External Rotation 5 Normal Internal Rotation 5 Normal Elbow/Forearm Strength Elbow and Forearm Manual Muscle Testing Bilateral Flexion (C6) 5 Normal Extension (C7) 5 Normal Pronation 5 Normal Supination 5 Normal Wrist Strength Wrist Manual Muscle Testing Bilateral Flexion (C7) 5 Normal Extension (C6) 5 Normal PT-OP-Q Treatments Start: 06/20/20 15:58 Freq: Status: Active Protocol: Document 07/25/20 08:16 MB (Rec: 07/25/20 08:58 MB [id number]) Manual Therapy Treatment Other Other Manual Treatments Pt agrees to Counterstrain to assess and treat fascial tension. She presents with tension in the following fascial systems: lymphatic venous many areas and neural areas. Performed treatment for tender points around C1 in all affected systems to help decongest head and neck. PT-OP-T Assessment and Plan Start: 06/20/20 15:58 Freq: Status: Active Protocol: Document 07/25/20 08:16 MB (Rec: 07/25/20 08:58 MB [id number]) Physical Therapy Assessment Rehab Potential Rehabilitation Potential Fair Evaluation Complexity Number of Personal Factors/Comorbidities 1-2 Number of Body Systems Impaired 1-2 Clinical Presentation at Evaluation Evolving Impairments Impairments Activity Tolerance,Balance, Pain,Posture,ROM,Soft Tissue Mobility,Strength Other Impairments Personal factors include severity of pain, job requiring provocative position of pain (sitting and looking downward), body systems affected include musculoskeletal, neuromuscular , vestibular and visual motor, affect is tearful after concussion. Her clinical presentation is evolving. Other Concerns Fall Risk Yes Goals 3 Detention Goal (LTG) Pt will perform progressive HEP with I including Buteyko Breathing, postural exercises, self-myofascial work, strengthening, balance and VOR exercises to improve pain and balance by 08/31/20. LTG Duration 8 weeks 2 Detention Goal (LTG) Pt will perform WNLs on a standardized balance test to decrease fall risk by 08/31/20. LTG Duration 8 weeks 1 Impairment NDI reflects greater than 50% impairment Pipe Fitter Maintenance Goal (LTG) Pt will present with an improved NDI score to reflect no more than 20% impairment to reflect improvement in function and quality of life by 08/31/20. LTG Duration 8 weeks Assessment Summary Assessment Pt is tearful and feels like I'm dying. She has dentures and wonders if her gums are infected. Encouraged her to go to her dentist and increase non-caffeinated fluid intake and low inflammatory diet. Encouraged pt to follow-up with doctor about coughing and pain in lower esophageal area . Counterstrain improves fascial mobility, pain and affect and will con't. Physical Therapy Plan Frequency and Duration Frequency of Treatment 2x/Week Duration of Treatment 8 weeks Plan of Care Start Date 07/01/20 Plan of Care End Date 09/02/20 Therapeutic Interventions Therapeutic Interventions Balance Training,Canalithic Repositioning,Coordination Training,Gait Training,Home Exercise Program,Joint Mobilizations,Manual Therapy, Neuromuscular Re-education, Patient/Caregiver Education, Self-Care/Home Management, Sensory Integration,Soft Tissue Mobilization,Taping, Therapeutic Activities, Therapeutic Exercises, Vestibular Rehabilitation Modalities Cold Pack/Ice Massage,Hot Packs Next Visit Focus/Plan Next Note Type Treatment Note Next Visit Plan Counterstrain. VOMS training when ready, pect stretch with rib breathing with open book, intrascapular and shoulder ER strengthening that can be done at home, self-SCM massage
--- NOTE | 2020-07-29 14:51 | PT.OTN ---
Current Diagnoses Syncope and collapse (07/29/20) Strain of muscle, fascia and tendon at neck level, initial encounter (07/29/20) Physical Therapy Treatment Note PT-OP-A Visit Information Start: 06/20/20 15:58 Freq: Status: Active Protocol: Document 07/29/20 08:12 [facility] (Rec: 07/29/20 08:17 [facility] [id number]) Out-Patient Physical Therapy Visit Information Visit Information Visit Type Treatment Note Visit Note High deductible, 20 visits a year Visit Start Time 07:31 Visit Stop Time 08:09 Total Visit Minutes 38 Visit Number 7 PT-OP-B Current Condition Start: 06/20/20 15:58 Freq: Status: Active Protocol: Document 07/01/20 07:29 MB (Rec: 07/01/20 07:47 MB [id number]) Current Condition History of Current Condition Onset Date April 2020 Current Complaints Severe headache that limits work History of Current Condition Pt states that she was taking her dog out in April and she fell on her front porch. She hit her head. She had another fall in 2018 where she tripped and she injured her right shoulder. She had PT on it and she got better. She is right handed. Pt reports tension and burning from her occiput down her back. She reports 8/10 pain. 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 Her pain is a lot worse with her work. She can barely do her job. She is having daily headaches. She cannot sleep well. Pt states that she was put on high blood pressure medicine on Wednesday. Pt has a history of feeling light-headed and a syncopal episode. A couple of years ago, she was diagnosed with concussion. She went to the ED and was given pills. Pt reports that her left arm sometimes goes numb when it is bent when she is sitting. PMH includes DM, elevated liver enzymes, Hep C, right ankle pain, severe ringing in both ears. Pt states that she gets to the point of tears at work. Prior Treatments and Tests MRI brain, panel monitor both NAD; US abdomen: cholecystectomy, liver echogenicity; cervical spine: multilevel cervical spondylosis. Treatment Goals Patient/Caregiver Goals To decrease headache PT-OP-C Subjective Start: 06/20/20 15:58 Freq: Status: Active Protocol: Document 07/29/20 08:12 [facility] (Rec: 07/29/20 08:17 [facility] [id number]) OP-PT Subjective Patient Comments Patient Comments Pt reports she felt not great after treatment and the next day but felt amazing Wed and Wednesday and was able to actually eat and drink which gave her hope. notes she started doing some shoulder ABCs and other exercises from rehab of shoulder surgery 1 year ago and wonders if that is also helping. Patient Reported Progress Improving PT-OP-J Posture/Palpation/Skin Start: 06/20/20 15:58 Freq: Status: Active Protocol: Document 07/01/20 07:29 MB (Rec: 07/01/20 12:45 MB [id number]) Posture Evaluation Comments Posture Comments Standing posture: decreased cervical lordosis, Dowager's hump, decreased thoracic kyphosis, increased lumbar lordosis and anterior tilt pelvis, increased overall body mass, right shoulder is mildly higher than the left and right scapula is mildly more protracted and higher than the left, left iliac crest is higher than the right , B knee valgus, pronation left foot and supination right foot. Pt reports some fire pain in her posterior neck and shoulder blades with looking down. PT-OP-K Range of Motion Start: 06/20/20 15:58 Freq: Status: Active Protocol: Document 07/01/20 07:29 MB (Rec: 07/01/20 12:45 MB [id number]) Cervical Spine Range of Motion Cervical Spine Active Testing Position Standing Comments Self-limits cervical ROM testing d/t c/o fire pain with cervical flexion in standing and pt mildly tearful today Shoulder Goniometric Range of Motion Shoulder ROM Limitations Comments B shoulder flexion and abduction normal PT-OP-M Strength Start: 06/20/20 15:58 Freq: Status: Active Protocol: Document 07/01/20 07:29 MB (Rec: 07/01/20 12:45 MB [id number]) Shoulder Strength Shoulder Manual Muscle Testing Bilateral Flexion 5 Normal Abduction (C5) 5 Normal External Rotation 5 Normal Internal Rotation 5 Normal Elbow/Forearm Strength Elbow and Forearm Manual Muscle Testing Bilateral Flexion (C6) 5 Normal Extension (C7) 5 Normal Pronation 5 Normal Supination 5 Normal Wrist Strength Wrist Manual Muscle Testing Bilateral Flexion (C7) 5 Normal Extension (C6) 5 Normal PT-OP-Q Treatments Start: 06/20/20 15:58 Freq: Status: Active Protocol: Document 07/29/20 08:12 [facility] (Rec: 07/29/20 08:17 [facility] [id number]) Manual Therapy Treatment Soft Tissue Mobilization cervical region Body Location B UTs, LS, SO, cervical paraspinals Mobilization Type Myofascial Release,Rolling, Strumming,Sustained Pressure Intensity/Depth Moderate Body Position Hooklying Comments and s/l w/c/r w/ant elevation/ post dep cranial fascia Mobilization Type Myofascial Release Intensity/Depth Superficial Body Position Hooklying Joint Mobilizations ribs Joint R 6 Direction caudal FM AC Joint gentle gapping FM PT-OP-T Assessment and Plan Start: 06/20/20 15:58 Freq: Status: Active Protocol: Document 07/29/20 08:12 [facility] (Rec: 07/29/20 08:17 [facility] [id number]) Physical Therapy Assessment Goals 3 Snf Goal (LTG) Pt will perform progressive HEP with I including Buteyko Breathing, postural exercises, self-myofascial work, strengthening, balance and VOR exercises to improve pain and balance by 08/31/20. LTG Duration 8 weeks 2 Control Room Supervisor Goal (LTG) Pt will perform WNLs on a standardized balance test to decrease fall risk by 08/31/20. LTG Duration 8 weeks 1 Impairment NDI reflects greater than 50% impairment Snf Goal (LTG) Pt will present with an improved NDI score to reflect no more than 20% impairment to reflect improvement in function and quality of life by 08/31/20. LTG Duration 8 weeks Assessment Summary Assessment Pt had signfiicantly improved ability to do post depression and ant eelvation of R scap after manual treatment. R shoulder dysfunction may be contributing to her neck paind d/t poor mechanics and shoulder weakness & positioning. She has significant R sided neck and cranial tightness Physical Therapy Plan Frequency and Duration Frequency of Treatment 2x/Week Duration of Treatment 8 weeks Plan of Care Start Date 07/01/20 Plan of Care End Date 09/02/20 Next Visit Focus/Plan Next Note Type Treatment Note Next Visit Plan Counterstrain. VOMS training when ready, pect stretch with rib breathing with open book, intrascapular and shoulder ER strengthening that can be done at home, self-SCM massage
--- NOTE | 2020-08-01 08:11 | PT.OTN ---
Current Diagnoses Syncope and collapse (08/01/20) Strain of muscle, fascia and tendon at neck level, initial encounter (08/01/20) Physical Therapy Treatment Note PT-OP-A Visit Information Start: 06/20/20 15:58 Freq: Status: Active Protocol: Document 08/01/20 07:29 MB (Rec: 08/01/20 07:55 MB [id number]) Out-Patient Physical Therapy Visit Information Visit Information Visit Type Treatment Note Visit Note High deductible, 20 visits a year Visit Start Time 07:29 Visit Stop Time 08:09 Total Visit Minutes 40 Visit Number 8 PT-OP-B Current Condition Start: 06/20/20 15:58 Freq: Status: Active Protocol: Document 07/01/20 07:29 MB (Rec: 07/01/20 07:47 MB [id number]) Current Condition History of Current Condition Onset Date April 2020 Current Complaints Severe headache that limits work History of Current Condition Pt states that she was taking her dog out in April and she fell on her front porch. She hit her head. She had another fall in 2018 where she tripped and she injured her right shoulder. She had PT on it and she got better. She is right handed. Pt reports tension and burning from her occiput down her back. She reports 8/10 pain. 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 Her pain is a lot worse with her work. She can barely do her job. She is having daily headaches. She cannot sleep well. Pt states that she was put on high blood pressure medicine on Wednesday. Pt has a history of feeling light-headed and a syncopal episode. A couple of years ago, she was diagnosed with concussion. She went to the ED and was given pills. Pt reports that her left arm sometimes goes numb when it is bent when she is sitting. PMH includes DM, elevated liver enzymes, Hep C, right ankle pain, severe ringing in both ears. Pt states that she gets to the point of tears at work. Prior Treatments and Tests MRI brain, cardiac rehabilitation program director both NAD; US abdomen: cholecystectomy, liver echogenicity; cervical spine: multilevel cervical spondylosis. Treatment Goals Patient/Caregiver Goals To decrease headache PT-OP-C Subjective Start: 06/20/20 15:58 Freq: Status: Active Protocol: Document 08/01/20 07:29 MB (Rec: 08/01/20 07:55 MB [id number]) OP-PT Subjective Patient Comments Patient Comments Pt states that she felt good after first Counterstrain treatment and the headache returned last night and is worse this morning. PT-OP-J Posture/Palpation/Skin Start: 06/20/20 15:58 Freq: Status: Active Protocol: Document 07/01/20 07:29 MB (Rec: 07/01/20 12:45 MB [id number]) Posture Evaluation Comments Posture Comments Standing posture: decreased cervical lordosis, Dowager's hump, decreased thoracic kyphosis, increased lumbar lordosis and anterior tilt pelvis, increased overall body mass, right shoulder is mildly higher than the left and right scapula is mildly more protracted and higher than the left, left iliac crest is higher than the right , B knee valgus, pronation left foot and supination right foot. Pt reports some fire pain in her posterior neck and shoulder blades with looking down. PT-OP-K Range of Motion Start: 06/20/20 15:58 Freq: Status: Active Protocol: Document 07/01/20 07:29 MB (Rec: 07/01/20 12:45 MB [id number]) Cervical Spine Range of Motion Cervical Spine Active Testing Position Standing Comments Self-limits cervical ROM testing d/t c/o fire pain with cervical flexion in standing and pt mildly tearful today Shoulder Goniometric Range of Motion Shoulder ROM Limitations Comments B shoulder flexion and abduction normal PT-OP-M Strength Start: 06/20/20 15:58 Freq: Status: Active Protocol: Document 07/01/20 07:29 MB (Rec: 07/01/20 12:45 MB [id number]) Shoulder Strength Shoulder Manual Muscle Testing Bilateral Flexion 5 Normal Abduction (C5) 5 Normal External Rotation 5 Normal Internal Rotation 5 Normal Elbow/Forearm Strength Elbow and Forearm Manual Muscle Testing Bilateral Flexion (C6) 5 Normal Extension (C7) 5 Normal Pronation 5 Normal Supination 5 Normal Wrist Strength Wrist Manual Muscle Testing Bilateral Flexion (C7) 5 Normal Extension (C6) 5 Normal PT-OP-Q Treatments Start: 06/20/20 15:58 Freq: Status: Active Protocol: Document 08/01/20 07:29 MB (Rec: 08/01/20 07:55 MB [id number]) Manual Therapy Treatment Other Other Manual Treatments Pt agrees to Counterstrain to assess and treat fascial tension. She presents with tension in LF and left visceral systems that improves after treating stacks in LF systems. Then tight in sympathetics and PT treats stacks and tension improves and pt responds well to treatment. B SCM positional release and suboccipital release. PT-OP-T Assessment and Plan Start: 06/20/20 15:58 Freq: Status: Active Protocol: Document 08/01/20 07:29 MB (Rec: 08/01/20 07:55 MB [id number]) Physical Therapy Assessment Rehab Potential Rehabilitation Potential Fair Evaluation Complexity Number of Personal Factors/Comorbidities 1-2 Number of Body Systems Impaired 1-2 Clinical Presentation at Evaluation Evolving Impairments Impairments Activity Tolerance,Balance, Pain,Posture,ROM,Soft Tissue Mobility,Strength Other Impairments Personal factors include severity of pain, job requiring provocative position of pain (sitting and looking downward), body systems affected include musculoskeletal, neuromuscular , vestibular and visual motor, affect is tearful after concussion. Her clinical presentation is evolving. Other Concerns Fall Risk Yes Goals 3 Social Work Lecturer Goal (LTG) Pt will perform progressive HEP with I including Buteyko Breathing, postural exercises, self-myofascial work, strengthening, balance and VOR exercises to improve pain and balance by 08/31/20. LTG Duration 8 weeks 2 Social Work Lecturer Goal (LTG) Pt will perform WNLs on a standardized balance test to decrease fall risk by 08/31/20. LTG Duration 8 weeks 1 Impairment NDI reflects greater than 50% impairment Social Work Lecturer Goal (LTG) Pt will present with an improved NDI score to reflect no more than 20% impairment to reflect improvement in function and quality of life by 08/31/20. LTG Duration 8 weeks Assessment Summary Assessment Pt presents with good fascial and subejctive response to Counterstrain to improve cervical and thoracic ligamentum flavum mobility and sympathetic fascial mobility today. Con't with Counterstrain and shoulder exercises as described below, progress note in two treatments by primary PT. Physical Therapy Plan Frequency and Duration Frequency of Treatment 2x/Week Duration of Treatment 8 weeks Plan of Care Start Date 07/01/20 Plan of Care End Date 09/02/20 Therapeutic Interventions Therapeutic Interventions Balance Training,Canalithic Repositioning,Coordination Training,Gait Training,Home Exercise Program,Joint Mobilizations,Manual Therapy, Neuromuscular Re-education, Patient/Caregiver Education, Self-Care/Home Management, Sensory Integration,Soft Tissue Mobilization,Taping, Therapeutic Activities, Therapeutic Exercises, Vestibular Rehabilitation Modalities Cold Pack/Ice Massage,Hot Packs Next Visit Focus/Plan Next Note Type Treatment Note Next Visit Plan Side lying open book with elbows bent for pect stretch and rib breathing, head and neck supported on pillow; hook lying cane abduction and flexion for shoulders with head and neck supported. Progress note in two treatments with primary therapist. Counterstrain
--- NOTE | 2020-08-05 08:26 | PT.OTN ---
Current Diagnoses Syncope and collapse (08/05/20) Strain of muscle, fascia and tendon at neck level, initial encounter (08/05/20) Physical Therapy Treatment Note PT-OP-A Visit Information Start: 06/20/20 15:58 Freq: Status: Active Protocol: Document 08/05/20 07:30 LR (Rec: 08/05/20 08:24 [facility] [id number]) Out-Patient Physical Therapy Visit Information Visit Information Visit Type Treatment Note Visit Note High deductible, 20 visits a year Visit Start Time 07:32 Visit Stop Time 08:12 Total Visit Minutes 40 Visit Number 9 Number of BICYCLE RACER Visits 0 PT-OP-B Current Condition Start: 06/20/20 15:58 Freq: Status: Active Protocol: Document 07/01/20 07:29 MB (Rec: 07/01/20 07:47 MB [id number]) Current Condition History of Current Condition Onset Date April 2020 Current Complaints Severe headache that limits work History of Current Condition Pt states that she was taking her dog out in April and she fell on her front porch. She hit her head. She had another fall in 2018 where she tripped and she injured her right shoulder. She had PT on it and she got better. She is right handed. Pt reports tension and burning from her occiput down her back. She reports 8/10 pain. 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 Her pain is a lot worse with her work. She can barely do her job. She is having daily headaches. She cannot sleep well. Pt states that she was put on high blood pressure medicine on Wednesday. Pt has a history of feeling light-headed and a syncopal episode. A couple of years ago, she was diagnosed with concussion. She went to the ED and was given pills. Pt reports that her left arm sometimes goes numb when it is bent when she is sitting. PMH includes DM, elevated liver enzymes, Hep C, right ankle pain, severe ringing in both ears. Pt states that she gets to the point of tears at work. Prior Treatments and Tests MRI brain, panel monitor both NAD; US abdomen: cholecystectomy, liver echogenicity; cervical spine: multilevel cervical spondylosis. Treatment Goals Patient/Caregiver Goals To decrease headache PT-OP-C Subjective Start: 06/20/20 15:58 Freq: Status: Active Protocol: Document 08/05/20 07:30 [facility] (Rec: 08/05/20 08:24 [facility] [id number]) OP-PT Subjective Patient Comments Patient Comments Pt reports MORENO started later on the afternoon last and has progressively getting worse again. She had about a week that was really good but has had a bad past few days. Still ahsn't heard anything from neurologist PT-OP-J Posture/Palpation/Skin Start: 06/20/20 15:58 Freq: Status: Active Protocol: Document 07/01/20 07:29 MB (Rec: 07/01/20 12:45 MB [id number]) Posture Evaluation Comments Posture Comments Standing posture: decreased cervical lordosis, Dowager's hump, decreased thoracic kyphosis, increased lumbar lordosis and anterior tilt pelvis, increased overall body mass, right shoulder is mildly higher than the left and right scapula is mildly more protracted and higher than the left, left iliac crest is higher than the right , B knee valgus, pronation left foot and supination right foot. Pt reports some fire pain in her posterior neck and shoulder blades with looking down. PT-OP-K Range of Motion Start: 06/20/20 15:58 Freq: Status: Active Protocol: Document 07/01/20 07:29 MB (Rec: 07/01/20 12:45 MB [id number]) Cervical Spine Range of Motion Cervical Spine Active Testing Position Standing Comments Self-limits cervical ROM testing d/t c/o fire pain with cervical flexion in standing and pt mildly tearful today Shoulder Goniometric Range of Motion Shoulder ROM Limitations Comments B shoulder flexion and abduction normal PT-OP-M Strength Start: 06/20/20 15:58 Freq: Status: Active Protocol: Document 07/01/20 07:29 MB (Rec: 07/01/20 12:45 MB [id number]) Shoulder Strength Shoulder Manual Muscle Testing Bilateral Flexion 5 Normal Abduction (C5) 5 Normal External Rotation 5 Normal Internal Rotation 5 Normal Elbow/Forearm Strength Elbow and Forearm Manual Muscle Testing Bilateral Flexion (C6) 5 Normal Extension (C7) 5 Normal Pronation 5 Normal Supination 5 Normal Wrist Strength Wrist Manual Muscle Testing Bilateral Flexion (C7) 5 Normal Extension (C6) 5 Normal PT-OP-Q Treatments Start: 06/20/20 15:58 Freq: Status: Active Protocol: Document 08/05/20 07:30 [facility] (Rec: 08/05/20 08:24 [facility] [id number]) Therapeutic Exercises Supine Exercises ER Side bilateral Equipment Used L1 Reps/Minutes 8 Comments stopped d/t pt feeling it in scalene region AAROm Supine Exercise Name 1. flex 2. abd Side right Reps/Minutes 15 Sidelying Exercises open book Sidelying Exercise Name w/elbow bent and 90 deg abd Side bilateral Reps/Minutes 15 Sitting Exercises scap retraction Sitting Exercise Name retract/depression Side bilateral Reps/Minutes 5 sec x5 Manual Therapy Treatment Soft Tissue Mobilization cervical region Body Location B UTs, LS, SO, cervical paraspinals Mobilization Type Myofascial Release,Rolling, Strumming,Sustained Pressure Intensity/Depth Moderate Body Position Hooklying Comments and s/l w/c/r w/ant elevation/ post dep cranial fascia Mobilization Type Myofascial Release Intensity/Depth Superficial Body Position Hooklying Joint Mobilizations ribs Joint 1st rib Direction caudal FM AC Joint gentle gapping FM PT-OP-T Assessment and Plan Start: 06/20/20 15:58 Freq: Status: Active Protocol: Document 08/05/20 07:30 [facility] (Rec: 08/05/20 08:24 [facility] [id number]) Physical Therapy Assessment Goals 3 Lamp Inspector Goal (LTG) Pt will perform progressive HEP with I including Buteyko Breathing, postural exercises, self-myofascial work, strengthening, balance and VOR exercises to improve pain and balance by 08/31/20. LTG Duration 8 weeks 2 Lamp Inspector Goal (LTG) Pt will perform WNLs on a standardized balance test to decrease fall risk by 08/31/20. LTG Duration 8 weeks 1 Impairment NDI reflects greater than 50% impairment [facility] Goal (LTG) Pt will present with an improved NDI score to reflect no more than 20% impairment to reflect improvement in function and quality of life by 08/31/20. LTG Duration 8 weeks Assessment Summary Assessment Pt reports some relief w/MORENO after manual. She did well with relief with stretching exercises but noted feeling it work in the scalenes w/tband so stopped those exercises and told pt to avoid exercises taht make her feel that. Difficulty with scap retraction w/o TL junction ext Physical Therapy Plan Frequency and Duration Frequency of Treatment 2x/Week Duration of Treatment 8 weeks Plan of Care Start Date 07/01/20 Plan of Care End Date 09/02/20 Next Visit Focus/Plan Next Note Type Progress Note Next Visit Plan review exercises, manual therapy for dec pain
--- NOTE | 2020-08-08 08:15 | PT.OTN ---
Current Diagnoses Syncope and collapse (08/08/20) Strain of muscle, fascia and tendon at neck level, initial encounter (08/08/20) Physical Therapy Treatment Note PT-OP-A Visit Information Start: 06/20/20 15:58 Freq: Status: Active Protocol: Document 08/08/20 07:32 MB (Rec: 08/08/20 08:13 MB [id number]) Out-Patient Physical Therapy Visit Information Visit Information Visit Type Progress Note Visit Note High deductible, 20 visits a year Visit Start Time 07:32 Visit Stop Time 08:13 Total Visit Minutes 41 Visit Number 10 PT-OP-B Current Condition Start: 06/20/20 15:58 Freq: Status: Active Protocol: Document 07/01/20 07:29 MB (Rec: 07/01/20 07:47 MB [id number]) Current Condition History of Current Condition Onset Date April 2020 Current Complaints Severe headache that limits work History of Current Condition Pt states that she was taking her dog out in April and she fell on her front porch. She hit her head. She had another fall in 2018 where she tripped and she injured her right shoulder. She had PT on it and she got better. She is right handed. Pt reports tension and burning from her occiput down her back. She reports 8/10 pain. 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 Her pain is a lot worse with her work. She can barely do her job. She is having daily headaches. She cannot sleep well. Pt states that she was put on high blood pressure medicine on Wednesday. Pt has a history of feeling light-headed and a syncopal episode. A couple of years ago, she was diagnosed with concussion. She went to the ED and was given pills. Pt reports that her left arm sometimes goes numb when it is bent when she is sitting. PMH includes DM, elevated liver enzymes, Hep C, right ankle pain, severe ringing in both ears. Pt states that she gets to the point of tears at work. Prior Treatments and Tests MRI brain, registered nurse cardiac both NAD; US abdomen: cholecystectomy, liver echogenicity; cervical spine: multilevel cervical spondylosis. Treatment Goals Patient/Caregiver Goals To decrease headache PT-OP-C Subjective Start: 06/20/20 15:58 Freq: Status: Active Protocol: Document 08/08/20 07:32 MB (Rec: 08/08/20 08:13 MB [id number]) OP-PT Subjective Patient Comments Patient Comments Pt states that she is feeling okay. She has a large knot feeling on her right upper trap area. She nausea is pretty much gone. Pt states that she is getting better. She did look up to help a maintenance adelita figure out which lights to replace and got really dizzy. PT-OP-J Posture/Palpation/Skin Start: 06/20/20 15:58 Freq: Status: Active Protocol: Document 07/01/20 07:29 MB (Rec: 07/01/20 12:45 MB [id number]) Posture Evaluation Comments Posture Comments Standing posture: decreased cervical lordosis, Dowager's hump, decreased thoracic kyphosis, increased lumbar lordosis and anterior tilt pelvis, increased overall body mass, right shoulder is mildly higher than the left and right scapula is mildly more protracted and higher than the left, left iliac crest is higher than the right , B knee valgus, pronation left foot and supination right foot. Pt reports some fire pain in her posterior neck and shoulder blades with looking down. PT-OP-K Range of Motion Start: 06/20/20 15:58 Freq: Status: Active Protocol: Document 07/01/20 07:29 MB (Rec: 07/01/20 12:45 MB [id number]) Cervical Spine Range of Motion Cervical Spine Active Testing Position Standing Comments Self-limits cervical ROM testing d/t c/o fire pain with cervical flexion in standing and pt mildly tearful today Shoulder Goniometric Range of Motion Shoulder ROM Limitations Comments B shoulder flexion and abduction normal PT-OP-M Strength Start: 06/20/20 15:58 Freq: Status: Active Protocol: Document 07/01/20 07:29 MB (Rec: 07/01/20 12:45 MB [id number]) Shoulder Strength Shoulder Manual Muscle Testing Bilateral Flexion 5 Normal Abduction (C5) 5 Normal External Rotation 5 Normal Internal Rotation 5 Normal Elbow/Forearm Strength Elbow and Forearm Manual Muscle Testing Bilateral Flexion (C6) 5 Normal Extension (C7) 5 Normal Pronation 5 Normal Supination 5 Normal Wrist Strength Wrist Manual Muscle Testing Bilateral Flexion (C7) 5 Normal Extension (C6) 5 Normal PT-OP-Q Treatments Start: 06/20/20 15:58 Freq: Status: Active Protocol: Document 08/08/20 07:32 MB (Rec: 08/08/20 08:13 MB [id number]) Therapeutic Exercises Other Exercises Reviewed exercises during progress note Comments Performed this today during progress note Racquet ball self-massage Comments Performs today Manual Therapy Treatment Other Other Manual Treatments Pt agrees to Counterstrain to assess and treat fascial tension. She presents with tension in the following fascial systems: LF, ALL and sympathetics. PT treats stacks in ALL system and scan improves Neuro Re-Education Treatment Balance Activities FGA tasks Comments FGA score is 22/30 with most trouble with head turns and walking with eyes closed and pt self-limits walking with eyes closed. She does not change brunilda much either PT-OP-T Assessment and Plan Start: 06/20/20 15:58 Freq: Status: Active Protocol: Document 08/08/20 07:32 MB (Rec: 08/08/20 08:13 MB [id number]) Physical Therapy Assessment Rehab Potential Rehabilitation Potential Fair Evaluation Complexity Number of Personal Factors/Comorbidities 1-2 Number of Body Systems Impaired 1-2 Clinical Presentation at Evaluation Evolving Impairments Impairments Activity Tolerance,Balance, Pain,Posture,ROM,Soft Tissue Mobility,Strength Other Impairments Personal factors include severity of pain, job requiring provocative position of pain (sitting and looking downward), body systems affected include musculoskeletal, neuromuscular , vestibular and visual motor, affect is tearful after concussion. Her clinical presentation is evolving. Other Concerns Fall Risk Yes Goals 3 Assisted Goal (LTG) Pt will perform progressive HEP with I including Buteyko Breathing, postural exercises, self-myofascial work, strengthening, balance and VOR exercises to improve pain and balance by 10/08/20. 08/08/20: Pt is performing racquet ball massage, back laborer general massage, shoulder flexion and abduction with cane in supine, open book, scapular retraction. LTG Duration 8 weeks 2 Ironer Goal (LTG) Pt will perform WNLs on a standardized balance test to decrease fall risk by 10/08/20. 08/08/20: FGA score is 22/30 with most trouble with head turns and walking with eyes closed and pt self-limits walking with eyes closed. She does not change brunilda much either LTG Duration 8 weeks 1 Impairment NDI reflects greater than 50% impairment on eval Assisted Goal (LTG) Pt will present with an improved NDI score to reflect no more than 20% impairment to reflect improvement in function and quality of life by 10/08/20. 08/08/20: NDI score is 20/50, which is 40% impairment LTG Duration 8 weeks Assessment Summary Assessment Pt has progressed towards NDI and HEP goals since starting PT. Her nausea is better. She con't with headaches and she presents with balance impairment. She will benefit from ongoing PT to improve posture, pain, strength and balance. Physical Therapy Plan Frequency and Duration Frequency of Treatment 2x/Week Duration of Treatment 8 weeks Plan of Care Start Date 08/08/20 Plan of Care End Date 10/08/20 Therapeutic Interventions Therapeutic Interventions Balance Training,Canalithic Repositioning,Coordination Training,Gait Training,Home Exercise Program,Joint Mobilizations,Manual Therapy, Neuromuscular Re-education, Patient/Caregiver Education, Self-Care/Home Management, Sensory Integration,Soft Tissue Mobilization,Taping, Therapeutic Activities, Therapeutic Exercises, Vestibular Rehabilitation Modalities Cold Pack/Ice Massage,Hot Packs Next Visit Focus/Plan Next Note Type Treatment Note Next Visit Plan Consider pool noodle lying, do cane exercises over pool noodle, shoulder ER with elbows at side and band for strengthening and progress band strengthening over pool noodle as appropriate, progress balance exercises to include gait with head turns, looking up and down and gait with eyes closed
--- NOTE | 2020-08-08 08:15 | PT.OPPOC ---
Addendum entered and electronically signed by Kayla Camarillo PT 09/23/20 12:54: Resend to Dr. Irwin to sign Original Note: Physical, Occupational & Speech Therapy At Current Diagnoses Syncope and collapse (08/08/20) Strain of muscle, fascia and tendon at neck level, initial encounter (08/08/20) Visit Care Team Role Provider Type CHANTELL Paige Family Provider Advanced Recreation Assistant Primary Care Provider Specialty: [facility] Practice Address: [address] [place] [address], [facility] Email: [email or web address] Eliu Irwin MD Attending Provider Physician Referring Provider Specialty: [facility] Address: [address] [place] [address] Email: [email or web address] Plan Of Care PT-OP-T Assessment and Plan Start: 06/20/20 15:58 Freq: Status: Active Protocol: Document 08/08/20 07:32 MB (Rec: 08/08/20 08:13 MB [id number]) Physical Therapy Assessment Rehab Potential Rehabilitation Potential Fair Evaluation Complexity Number of Personal Factors/Comorbidities 1-2 Number of Body Systems Impaired 1-2 Clinical Presentation at Evaluation Evolving Impairments Impairments Activity Tolerance,Balance, Pain,Posture,ROM,Soft Tissue Mobility,Strength Other Impairments Personal factors include severity of pain, job requiring provocative position of pain (sitting and looking downward), body systems affected include musculoskeletal, neuromuscular , vestibular and visual motor, affect is tearful after concussion. Her clinical presentation is evolving. Other Concerns Fall Risk Yes Goals 3 Halfway Goal (LTG) Pt will perform progressive HEP with I including Buteyko Breathing, postural exercises, self-myofascial work, strengthening, balance and VOR exercises to improve pain and balance by 10/08/20. 08/08/20: Pt is performing racquet ball massage, back information assurance analyst massage, shoulder flexion and abduction with cane in supine, open book, scapular retraction. LTG Duration 8 weeks 2 Prior Authorization Nurse Goal (LTG) Pt will perform WNLs on a standardized balance test to decrease fall risk by 10/08/20. 08/08/20: FGA score is 22/30 with most trouble with head turns and walking with eyes closed and pt self-limits walking with eyes closed. She does not change brunilda much either LTG Duration 8 weeks 1 Impairment NDI reflects greater than 50% impairment on eval Prior Authorization Nurse Goal (LTG) Pt will present with an improved NDI score to reflect no more than 20% impairment to reflect improvement in function and quality of life by 10/08/20. 08/08/20: NDI score is 20/50, which is 40% impairment LTG Duration 8 weeks Assessment Summary Assessment Pt has progressed towards NDI and HEP goals since starting PT. Her nausea is better. She con't with headaches and she presents with balance impairment. She will benefit from ongoing PT to improve posture, pain, strength and balance. Physical Therapy Plan Frequency and Duration Frequency of Treatment 2x/Week Duration of Treatment 8 weeks Plan of Care Start Date 08/08/20 Plan of Care End Date 10/08/20 Therapeutic Interventions Therapeutic Interventions Balance Training,Canalithic Repositioning,Coordination Training,Gait Training,Home Exercise Program,Joint Mobilizations,Manual Therapy, Neuromuscular Re-education, Patient/Caregiver Education, Self-Care/Home Management, Sensory Integration,Soft Tissue Mobilization,Taping, Therapeutic Activities, Therapeutic Exercises, Vestibular Rehabilitation Modalities Cold Pack/Ice Massage,Hot Packs Next Visit Focus/Plan Next Note Type Treatment Note Next Visit Plan Consider pool noodle lying, do cane exercises over pool noodle, shoulder ER with elbows at side and band for strengthening and progress band strengthening over pool noodle as appropriate, progress balance exercises to include gait with head turns, looking up and down and gait with eyes closed Plan of Care Dates Plan of Care Start Date 08/08/20 Plan of Care End Date 10/08/20 Electronically Signed by: Kayla Camarillo, PT 08/08/20 [id number] Please Sign and Return: I have reviewed this Plan of Care and certify that the skilled therapy services above are required to meet the patient?s needs. Physician Signature Date Printed Name and Credentials Clinical Instructor Signature Printed Name and Credentials
--- NOTE | 2020-08-12 08:19 | PT.OTN ---
Current Diagnoses Syncope and collapse (08/12/20) Strain of muscle, fascia and tendon at neck level, initial encounter (08/12/20) Physical Therapy Treatment Note PT-OP-A Visit Information Start: 06/20/20 15:58 Freq: Status: Active Protocol: Document 08/12/20 07:35 LR (Rec: 08/12/20 08:19 [facility] [id number]) Out-Patient Physical Therapy Visit Information Visit Information Visit Type Treatment Note Visit Note High deductible, 20 visits a year Visit Start Time 07:31 Visit Stop Time 08:12 Total Visit Minutes 41 Visit Number 11 Number of CAFETERIA MONITOR Visits 0 PT-OP-B Current Condition Start: 06/20/20 15:58 Freq: Status: Active Protocol: Document 07/01/20 07:29 MB (Rec: 07/01/20 07:47 MB [id number]) Current Condition History of Current Condition Onset Date April 2020 Current Complaints Severe headache that limits work History of Current Condition Pt states that she was taking her dog out in April and she fell on her front porch. She hit her head. She had another fall in 2018 where she tripped and she injured her right shoulder. She had PT on it and she got better. She is right handed. Pt reports tension and burning from her occiput down her back. She reports 8/10 pain. 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 Her pain is a lot worse with her work. She can barely do her job. She is having daily headaches. She cannot sleep well. Pt states that she was put on high blood pressure medicine on Wednesday. Pt has a history of feeling light-headed and a syncopal episode. A couple of years ago, she was diagnosed with concussion. She went to the ED and was given pills. Pt reports that her left arm sometimes goes numb when it is bent when she is sitting. PMH includes DM, elevated liver enzymes, Hep C, right ankle pain, severe ringing in both ears. Pt states that she gets to the point of tears at work. Prior Treatments and Tests MRI brain, compliance monitor both NAD; US abdomen: cholecystectomy, liver echogenicity; cervical spine: multilevel cervical spondylosis. Treatment Goals Patient/Caregiver Goals To decrease headache PT-OP-C Subjective Start: 06/20/20 15:58 Freq: Status: Active Protocol: Document 08/12/20 07:35 [facility] (Rec: 08/12/20 08:19 [facility] [id number]) OP-PT Subjective Patient Comments Patient Comments Pt reports yesterday the R side of her jaw was bothering her a lot She had a terrible MORENO yesterday and SAT. She was off sat but worked wednesday. This AM was a little iffy with the nausea. Unsure if it is partly d/t heat and dec ability to sleep d/t heat PT-OP-J Posture/Palpation/Skin Start: 06/20/20 15:58 Freq: Status: Active Protocol: Document 07/01/20 07:29 MB (Rec: 07/01/20 12:45 MB [id number]) Posture Evaluation Comments Posture Comments Standing posture: decreased cervical lordosis, Dowager's hump, decreased thoracic kyphosis, increased lumbar lordosis and anterior tilt pelvis, increased overall body mass, right shoulder is mildly higher than the left and right scapula is mildly more protracted and higher than the left, left iliac crest is higher than the right , B knee valgus, pronation left foot and supination right foot. Pt reports some fire pain in her posterior neck and shoulder blades with looking down. PT-OP-K Range of Motion Start: 06/20/20 15:58 Freq: Status: Active Protocol: Document 07/01/20 07:29 MB (Rec: 07/01/20 12:45 MB [id number]) Cervical Spine Range of Motion Cervical Spine Active Testing Position Standing Comments Self-limits cervical ROM testing d/t c/o fire pain with cervical flexion in standing and pt mildly tearful today Shoulder Goniometric Range of Motion Shoulder ROM Limitations Comments B shoulder flexion and abduction normal PT-OP-M Strength Start: 06/20/20 15:58 Freq: Status: Active Protocol: Document 07/01/20 07:29 MB (Rec: 07/01/20 12:45 MB [id number]) Shoulder Strength Shoulder Manual Muscle Testing Bilateral Flexion 5 Normal Abduction (C5) 5 Normal External Rotation 5 Normal Internal Rotation 5 Normal Elbow/Forearm Strength Elbow and Forearm Manual Muscle Testing Bilateral Flexion (C6) 5 Normal Extension (C7) 5 Normal Pronation 5 Normal Supination 5 Normal Wrist Strength Wrist Manual Muscle Testing Bilateral Flexion (C7) 5 Normal Extension (C6) 5 Normal PT-OP-Q Treatments Start: 06/20/20 15:58 Freq: Status: Active Protocol: Document 08/12/20 07:35 [facility] (Rec: 08/12/20 08:19 [facility] [id number]) Therapeutic Exercises Supine Exercises jaw opening Supine Exercise Name w/tongue on soft palette Reps/Minutes 10 foam roll Supine Exercise Name 1. pec stretch 1 min 2. row lvl 1 tband x15 Comments 3. scap squeezes AAROm Supine Exercise Name 1. flex 2. ER Side right Reps/Minutes 20 Comments on foam roll Manual Therapy Treatment Soft Tissue Mobilization cervical region Body Location B UTs, LS, SO, cervical paraspinals, masseter, digastric Mobilization Type Myofascial Release,Rolling, Strumming,Sustained Pressure Intensity/Depth Moderate Body Position Hooklying Comments and s/l w/c/r w/ant elevation/ post dep cranial fascia Body Location cranial fascai & temporalis Mobilization Type Myofascial Release Intensity/Depth Superficial Body Position Hooklying PT-OP-T Assessment and Plan Start: 06/20/20 15:58 Freq: Status: Active Protocol: Document 08/12/20 07:35 [facility] (Rec: 08/12/20 08:19 [facility] [id number]) Physical Therapy Assessment Assessment Summary Assessment Pt had signficnat R sided jaw tightness including temporalis masseter, digastric mm. She improved w/manual STM and had improved scap depression after manual work Physical Therapy Plan Frequency and Duration Frequency of Treatment 2x/Week Duration of Treatment 8 weeks Plan of Care Start Date 08/08/20 Plan of Care End Date 10/08/20 Next Visit Focus/Plan Next Note Type Treatment Note Next Visit Plan assess response to poll noodle and doing rows and consider standing rows so pt able to add to HEP if tolerated
--- NOTE | 2020-08-15 08:12 | PT.OTN ---
Current Diagnoses Syncope and collapse (08/15/20) Strain of muscle, fascia and tendon at neck level, initial encounter (08/15/20) Physical Therapy Treatment Note PT-OP-A Visit Information Start: 06/20/20 15:58 Freq: Status: Active Protocol: Document 08/15/20 07:28 MB (Rec: 08/15/20 08:09 MB [id number]) Out-Patient Physical Therapy Visit Information Visit Information Visit Type Treatment Note Visit Note High deductible, 20 visits a year Visit Start Time 07:28 Visit Stop Time 08:09 Total Visit Minutes 41 Visit Number 12 PT-OP-B Current Condition Start: 06/20/20 15:58 Freq: Status: Active Protocol: Document 07/01/20 07:29 MB (Rec: 07/01/20 07:47 MB [id number]) Current Condition History of Current Condition Onset Date April 2020 Current Complaints Severe headache that limits work History of Current Condition Pt states that she was taking her dog out in April and she fell on her front porch. She hit her head. She had another fall in 2018 where she tripped and she injured her right shoulder. She had PT on it and she got better. She is right handed. Pt reports tension and burning from her occiput down her back. She reports 8/10 pain. 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 Her pain is a lot worse with her work. She can barely do her job. She is having daily headaches. She cannot sleep well. Pt states that she was put on high blood pressure medicine on Wednesday. Pt has a history of feeling light-headed and a syncopal episode. A couple of years ago, she was diagnosed with concussion. She went to the ED and was given pills. Pt reports that her left arm sometimes goes numb when it is bent when she is sitting. PMH includes DM, elevated liver enzymes, Hep C, right ankle pain, severe ringing in both ears. Pt states that she gets to the point of tears at work. Prior Treatments and Tests MRI brain, campus monitor both NAD; US abdomen: cholecystectomy, liver echogenicity; cervical spine: multilevel cervical spondylosis. Treatment Goals Patient/Caregiver Goals To decrease headache PT-OP-C Subjective Start: 06/20/20 15:58 Freq: Status: Active Protocol: Document 08/15/20 07:28 MB (Rec: 08/15/20 08:09 MB [id number]) OP-PT Subjective Patient Comments Patient Comments Pt states that the headaches were pretty brutal this week. This morning, the nausea is back. PT-OP-J Posture/Palpation/Skin Start: 06/20/20 15:58 Freq: Status: Active Protocol: Document 07/01/20 07:29 MB (Rec: 07/01/20 12:45 MB [id number]) Posture Evaluation Comments Posture Comments Standing posture: decreased cervical lordosis, Dowager's hump, decreased thoracic kyphosis, increased lumbar lordosis and anterior tilt pelvis, increased overall body mass, right shoulder is mildly higher than the left and right scapula is mildly more protracted and higher than the left, left iliac crest is higher than the right , B knee valgus, pronation left foot and supination right foot. Pt reports some fire pain in her posterior neck and shoulder blades with looking down. PT-OP-K Range of Motion Start: 06/20/20 15:58 Freq: Status: Active Protocol: Document 07/01/20 07:29 MB (Rec: 07/01/20 12:45 MB [id number]) Cervical Spine Range of Motion Cervical Spine Active Testing Position Standing Comments Self-limits cervical ROM testing d/t c/o fire pain with cervical flexion in standing and pt mildly tearful today Shoulder Goniometric Range of Motion Shoulder ROM Limitations Comments B shoulder flexion and abduction normal PT-OP-M Strength Start: 06/20/20 15:58 Freq: Status: Active Protocol: Document 07/01/20 07:29 MB (Rec: 07/01/20 12:45 MB [id number]) Shoulder Strength Shoulder Manual Muscle Testing Bilateral Flexion 5 Normal Abduction (C5) 5 Normal External Rotation 5 Normal Internal Rotation 5 Normal Elbow/Forearm Strength Elbow and Forearm Manual Muscle Testing Bilateral Flexion (C6) 5 Normal Extension (C7) 5 Normal Pronation 5 Normal Supination 5 Normal Wrist Strength Wrist Manual Muscle Testing Bilateral Flexion (C7) 5 Normal Extension (C6) 5 Normal PT-OP-Q Treatments Start: 06/20/20 15:58 Freq: Status: Active Protocol: Document 08/15/20 07:28 MB (Rec: 08/15/20 08:09 MB [id number]) Therapeutic Exercises Supine Exercises Pool noodle exercises Supine Exercise Name Cane flexion and abduction, stopped ER Equipment Used Purple pool noodle, cane Comments 10 reps flexion, 5 reps abduction, stopped ER, pect stretch, post capsule Manual Therapy Treatment Other Other Manual Treatments Started [place] Protocol right shoulder and pt tolerates prone mobs but cannot relax arms for side lying mobs, PA joint mobs with right shoulder in ER and IR in prone, grade III, AP GH joint mobs with pt supine and right shoulder in ER, right pect STM, MWM B middle scalenes with pt rotating her head opposite direction PT-OP-T Assessment and Plan Start: 06/20/20 15:58 Freq: Status: Active Protocol: Document 08/15/20 07:28 MB (Rec: 08/15/20 08:09 MB [id number]) Physical Therapy Assessment Rehab Potential Rehabilitation Potential Fair Evaluation Complexity Number of Personal Factors/Comorbidities 1-2 Number of Body Systems Impaired 1-2 Clinical Presentation at Evaluation Evolving Impairments Impairments Activity Tolerance,Balance, Pain,Posture,ROM,Soft Tissue Mobility,Strength Other Impairments Personal factors include severity of pain, job requiring provocative position of pain (sitting and looking downward), body systems affected include musculoskeletal, neuromuscular , vestibular and visual motor, affect is tearful after concussion. Her clinical presentation is evolving. Other Concerns Fall Risk Yes Goals 3 Desk Representative Goal (LTG) Pt will perform progressive HEP with I including Buteyko Breathing, postural exercises, self-myofascial work, strengthening, balance and VOR exercises to improve pain and balance by 10/08/20. 08/08/20: Pt is performing racquet ball massage, back emergency generator mechanic massage, shoulder flexion and abduction with cane in supine, open book, scapular retraction. LTG Duration 8 weeks 2 Desk Representative Goal (LTG) Pt will perform WNLs on a standardized balance test to decrease fall risk by 10/08/20. 08/08/20: FGA score is 22/30 with most trouble with head turns and walking with eyes closed and pt self-limits walking with eyes closed. She does not change brunilda much either LTG Duration 8 weeks 1 Impairment NDI reflects greater than 50% impairment on eval Desk Representative Goal (LTG) Pt will present with an improved NDI score to reflect no more than 20% impairment to reflect improvement in function and quality of life by 10/08/20. 08/08/20: NDI score is 20/50, which is 40% impairment LTG Duration 8 weeks Assessment Summary Assessment Reviewed pool noodle exercises today in order to improve shoulder and thoracic mobility as pt states that working on her shoulder is helpful. Also con't work on her shoulder today to improve pain and fascial restrictions. Con't progression. Physical Therapy Plan Frequency and Duration Frequency of Treatment 2x/Week Duration of Treatment 8 weeks Plan of Care Start Date 08/08/20 Plan of Care End Date 10/08/20 Therapeutic Interventions Therapeutic Interventions Balance Training,Canalithic Repositioning,Coordination Training,Gait Training,Home Exercise Program,Joint Mobilizations,Manual Therapy, Neuromuscular Re-education, Patient/Caregiver Education, Self-Care/Home Management, Sensory Integration,Soft Tissue Mobilization,Taping, Therapeutic Activities, Therapeutic Exercises, Vestibular Rehabilitation Modalities Cold Pack/Ice Massage,Hot Packs Next Visit Focus/Plan Next Note Type Treatment Note Next Visit Plan Progress band strengthening shoulder ER with elbows at side, etc over pool noodle as appropriate, progress balance exercises to include gait with head turns, looking up and down and gait with eyes closed , Ongoing manual work, ergonomics education
--- NOTE | 2020-08-22 10:30 | PT.OTN ---
Current Diagnoses Syncope and collapse (08/22/20) Strain of muscle, fascia and tendon at neck level, initial encounter (08/22/20) Physical Therapy Treatment Note PT-OP-A Visit Information Start: 06/20/20 15:58 Freq: Status: Active Protocol: Document 08/22/20 09:48 MB (Rec: 08/22/20 10:30 MB [id number]) Out-Patient Physical Therapy Visit Information Visit Information Visit Type Treatment Note Visit Note High deductible, 20 visits a year Visit Start Time 09:48 Visit Stop Time 10:30 Total Visit Minutes 42 Visit Number 13 PT-OP-B Current Condition Start: 06/20/20 15:58 Freq: Status: Active Protocol: Document 07/01/20 07:29 MB (Rec: 07/01/20 07:47 MB [id number]) Current Condition History of Current Condition Onset Date April 2020 Current Complaints Severe headache that limits work History of Current Condition Pt states that she was taking her dog out in April and she fell on her front porch. She hit her head. She had another fall in 2018 where she tripped and she injured her right shoulder. She had PT on it and she got better. She is right handed. Pt reports tension and burning from her occiput down her back. She reports 8/10 pain. 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 Her pain is a lot worse with her work. She can barely do her job. She is having daily headaches. She cannot sleep well. Pt states that she was put on high blood pressure medicine on Wednesday. Pt has a history of feeling light-headed and a syncopal episode. A couple of years ago, she was diagnosed with concussion. She went to the ED and was given pills. Pt reports that her left arm sometimes goes numb when it is bent when she is sitting. PMH includes DM, elevated liver enzymes, Hep C, right ankle pain, severe ringing in both ears. Pt states that she gets to the point of tears at work. Prior Treatments and Tests MRI brain, vehicle monitor technician both NAD; US abdomen: cholecystectomy, liver echogenicity; cervical spine: multilevel cervical spondylosis. Treatment Goals Patient/Caregiver Goals To decrease headache PT-OP-C Subjective Start: 06/20/20 15:58 Freq: Status: Active Protocol: Document 08/22/20 09:48 MB (Rec: 08/22/20 10:30 MB [id number]) OP-PT Subjective Patient Comments Patient Comments Pt states that over the weekend, she was going through a lot of stuff and bending and lifting and her legs are really sore. She has been been in discomfort for days. She is moving stuff to the dump today. Her will help her. PT-OP-J Posture/Palpation/Skin Start: 06/20/20 15:58 Freq: Status: Active Protocol: Document 07/01/20 07:29 MB (Rec: 07/01/20 12:45 MB [id number]) Posture Evaluation Comments Posture Comments Standing posture: decreased cervical lordosis, Dowager's hump, decreased thoracic kyphosis, increased lumbar lordosis and anterior tilt pelvis, increased overall body mass, right shoulder is mildly higher than the left and right scapula is mildly more protracted and higher than the left, left iliac crest is higher than the right , B knee valgus, pronation left foot and supination right foot. Pt reports some fire pain in her posterior neck and shoulder blades with looking down. PT-OP-K Range of Motion Start: 06/20/20 15:58 Freq: Status: Active Protocol: Document 07/01/20 07:29 MB (Rec: 07/01/20 12:45 MB [id number]) Cervical Spine Range of Motion Cervical Spine Active Testing Position Standing Comments Self-limits cervical ROM testing d/t c/o fire pain with cervical flexion in standing and pt mildly tearful today Shoulder Goniometric Range of Motion Shoulder ROM Limitations Comments B shoulder flexion and abduction normal PT-OP-M Strength Start: 06/20/20 15:58 Freq: Status: Active Protocol: Document 07/01/20 07:29 MB (Rec: 07/01/20 12:45 MB [id number]) Shoulder Strength Shoulder Manual Muscle Testing Bilateral Flexion 5 Normal Abduction (C5) 5 Normal External Rotation 5 Normal Internal Rotation 5 Normal Elbow/Forearm Strength Elbow and Forearm Manual Muscle Testing Bilateral Flexion (C6) 5 Normal Extension (C7) 5 Normal Pronation 5 Normal Supination 5 Normal Wrist Strength Wrist Manual Muscle Testing Bilateral Flexion (C7) 5 Normal Extension (C6) 5 Normal PT-OP-Q Treatments Start: 06/20/20 15:58 Freq: Status: Active Protocol: Document 08/22/20 09:48 MB (Rec: 08/22/20 10:30 MB [id number]) Therapeutic Exercises Supine Exercises Pool noodle exercises Supine Exercise Name Shoulder ER with band, horizontal abd, Side bilateral Equipment Used Purple pool noodle, level 1 band Comments 10 reps Buteyko breathing Supine Exercise Name Sitting today, paper tape on mouth, sinus decongestion Comments See assessment comments PT-OP-T Assessment and Plan Start: 06/20/20 15:58 Freq: Status: Active Protocol: Document 08/22/20 09:48 MB (Rec: 08/22/20 10:30 MB [id number]) Physical Therapy Assessment Rehab Potential Rehabilitation Potential Fair Evaluation Complexity Number of Personal Factors/Comorbidities 1-2 Number of Body Systems Impaired 1-2 Clinical Presentation at Evaluation Evolving Impairments Impairments Activity Tolerance,Balance, Pain,Posture,ROM,Soft Tissue Mobility,Strength Other Impairments Personal factors include severity of pain, job requiring provocative position of pain (sitting and looking downward), body systems affected include musculoskeletal, neuromuscular , vestibular and visual motor, affect is tearful after concussion. Her clinical presentation is evolving. Other Concerns Fall Risk Yes Goals 3 [facility] Goal (LTG) Pt will perform progressive HEP with I including Buteyko Breathing, postural exercises, self-myofascial work, strengthening, balance and VOR exercises to improve pain and balance by 10/08/20. 08/08/20: Pt is performing racquet ball massage, back tank setter massage, shoulder flexion and abduction with cane in supine, open book, scapular retraction. LTG Duration 8 weeks 2 [facility] Goal (LTG) Pt will perform WNLs on a standardized balance test to decrease fall risk by 10/08/20. 08/08/20: FGA score is 22/30 with most trouble with head turns and walking with eyes closed and pt self-limits walking with eyes closed. She does not change brunilda much either LTG Duration 8 weeks 1 Impairment NDI reflects greater than 50% impairment on eval [facility] Goal (LTG) Pt will present with an improved NDI score to reflect no more than 20% impairment to reflect improvement in function and quality of life by 10/08/20. 08/08/20: NDI score is 20/50, which is 40% impairment LTG Duration 8 weeks Assessment Summary Assessment Initiated strengthing over pool noodle today and progressed Buteyko exercises in sitting for congested nostil (right). Pt reports some dizziness after sinus decongestion exercise and pt can quiet breaths with practice and reps. Dizziness improves. Exercise 1: 30 sec hold and PT cues to make sure she does not too long such that she sucks in air deeply with inhalation. Repeated reps improve and 25 sec hold and diaphragm engagement. Pt notes that her jaw feels a little better with it. Will con't to monitor her response to it. Physical Therapy Plan Frequency and Duration Frequency of Treatment 2x/Week Duration of Treatment 8 weeks Plan of Care Start Date 08/08/20 Plan of Care End Date 10/08/20 Therapeutic Interventions Therapeutic Interventions Balance Training,Canalithic Repositioning,Coordination Training,Gait Training,Home Exercise Program,Joint Mobilizations,Manual Therapy, Neuromuscular Re-education, Patient/Caregiver Education, Self-Care/Home Management, Sensory Integration,Soft Tissue Mobilization,Taping, Therapeutic Activities, Therapeutic Exercises, Vestibular Rehabilitation Modalities Cold Pack/Ice Massage,Hot Packs Next Visit Focus/Plan Next Note Type Treatment Note Next Visit Plan Consider pect stretch and other strengthening exercises over pool noodle. Progress balance exercises to include gait with head turns, looking up and down and gait with eyes closed, Ongoing manual work, ergonomics education
--- NOTE | 2020-08-27 13:01 | PT.OTN ---
Current Diagnoses Syncope and collapse (08/27/20) Strain of muscle, fascia and tendon at neck level, initial encounter (08/27/20) Physical Therapy Treatment Note PT-OP-A Visit Information Start: 06/20/20 15:58 Freq: Status: Active Protocol: Document 08/27/20 12:16 MB (Rec: 08/27/20 13:00 MB [id number]) Out-Patient Physical Therapy Visit Information Visit Information Visit Type Treatment Note Visit Note High deductible, 20 visits a year Visit Start Time 12:16 Visit Stop Time 13:00 Total Visit Minutes 44 Visit Number 14 PT-OP-B Current Condition Start: 06/20/20 15:58 Freq: Status: Active Protocol: Document 07/01/20 07:29 MB (Rec: 07/01/20 07:47 MB [id number]) Current Condition History of Current Condition Onset Date April 2020 Current Complaints Severe headache that limits work History of Current Condition Pt states that she was taking her dog out in April and she fell on her front porch. She hit her head. She had another fall in 2018 where she tripped and she injured her right shoulder. She had PT on it and she got better. She is right handed. Pt reports tension and burning from her occiput down her back. She reports 8/10 pain. 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 Her pain is a lot worse with her work. She can barely do her job. She is having daily headaches. She cannot sleep well. Pt states that she was put on high blood pressure medicine on Wednesday. Pt has a history of feeling light-headed and a syncopal episode. A couple of years ago, she was diagnosed with concussion. She went to the ED and was given pills. Pt reports that her left arm sometimes goes numb when it is bent when she is sitting. PMH includes DM, elevated liver enzymes, Hep C, right ankle pain, severe ringing in both ears. Pt states that she gets to the point of tears at work. Prior Treatments and Tests MRI brain, cardiac exercise specialist both NAD; US abdomen: cholecystectomy, liver echogenicity; cervical spine: multilevel cervical spondylosis. Treatment Goals Patient/Caregiver Goals To decrease headache PT-OP-C Subjective Start: 06/20/20 15:58 Freq: Status: Active Protocol: Document 08/27/20 12:16 MB (Rec: 08/27/20 13:00 MB [id number]) OP-PT Subjective Patient Comments Patient Comments Pt states that she is feeling good. PT-OP-J Posture/Palpation/Skin Start: 06/20/20 15:58 Freq: Status: Active Protocol: Document 07/01/20 07:29 MB (Rec: 07/01/20 12:45 MB [id number]) Posture Evaluation Comments Posture Comments Standing posture: decreased cervical lordosis, Dowager's hump, decreased thoracic kyphosis, increased lumbar lordosis and anterior tilt pelvis, increased overall body mass, right shoulder is mildly higher than the left and right scapula is mildly more protracted and higher than the left, left iliac crest is higher than the right , B knee valgus, pronation left foot and supination right foot. Pt reports some fire pain in her posterior neck and shoulder blades with looking down. PT-OP-K Range of Motion Start: 06/20/20 15:58 Freq: Status: Active Protocol: Document 07/01/20 07:29 MB (Rec: 07/01/20 12:45 MB [id number]) Cervical Spine Range of Motion Cervical Spine Active Testing Position Standing Comments Self-limits cervical ROM testing d/t c/o fire pain with cervical flexion in standing and pt mildly tearful today Shoulder Goniometric Range of Motion Shoulder ROM Limitations Comments B shoulder flexion and abduction normal PT-OP-M Strength Start: 06/20/20 15:58 Freq: Status: Active Protocol: Document 07/01/20 07:29 MB (Rec: 07/01/20 12:45 MB [id number]) Shoulder Strength Shoulder Manual Muscle Testing Bilateral Flexion 5 Normal Abduction (C5) 5 Normal External Rotation 5 Normal Internal Rotation 5 Normal Elbow/Forearm Strength Elbow and Forearm Manual Muscle Testing Bilateral Flexion (C6) 5 Normal Extension (C7) 5 Normal Pronation 5 Normal Supination 5 Normal Wrist Strength Wrist Manual Muscle Testing Bilateral Flexion (C7) 5 Normal Extension (C6) 5 Normal PT-OP-Q Treatments Start: 06/20/20 15:58 Freq: Status: Active Protocol: Document 08/27/20 12:16 MB (Rec: 08/27/20 13:00 MB [id number]) Therapeutic Exercises Supine Exercises Pool noodle exercises Supine Exercise Name Pect stretch, forward flexion, post capsule stretch, should/ elbow ext/flex Side bilateral Comments 10 reps all except stretch Manual Therapy Treatment Other Other Manual Treatments Pt prone: STM right infraspinatus and grade II PA mobs shoulder joints Neuro Re-Education Treatment Balance Activities Balance progression in the corner Comments Romberg EO and EC at least 30 sec. Tandem standing, EO, EC, head turns and pt has trouble with EC PT-OP-T Assessment and Plan Start: 06/20/20 15:58 Freq: Status: Active Protocol: Document 08/27/20 12:16 MB (Rec: 08/27/20 13:00 MB [id number]) Physical Therapy Assessment Rehab Potential Rehabilitation Potential Fair Evaluation Complexity Number of Personal Factors/Comorbidities 1-2 Number of Body Systems Impaired 1-2 Clinical Presentation at Evaluation Evolving Impairments Impairments Activity Tolerance,Balance, Pain,Posture,ROM,Soft Tissue Mobility,Strength Other Impairments Personal factors include severity of pain, job requiring provocative position of pain (sitting and looking downward), body systems affected include musculoskeletal, neuromuscular , vestibular and visual motor, affect is tearful after concussion. Her clinical presentation is evolving. Other Concerns Fall Risk Yes Goals 3 [facility] Goal (LTG) Pt will perform progressive HEP with I including Buteyko Breathing, postural exercises, self-myofascial work, strengthening, balance and VOR exercises to improve pain and balance by 10/08/20. 08/08/20: Pt is performing racquet ball massage, back sucker machine operator massage, shoulder flexion and abduction with cane in supine, open book, scapular retraction. LTG Duration 8 weeks 2 [facility] Goal (LTG) Pt will perform WNLs on a standardized balance test to decrease fall risk by 10/08/20. 08/08/20: FGA score is 22/30 with most trouble with head turns and walking with eyes closed and pt self-limits walking with eyes closed. She does not change brunilda much either LTG Duration 8 weeks 1 Impairment NDI reflects greater than 50% impairment on eval [facility] Goal (LTG) Pt will present with an improved NDI score to reflect no more than 20% impairment to reflect improvement in function and quality of life by 10/08/20. 08/08/20: NDI score is 20/50, which is 40% impairment LTG Duration 8 weeks Assessment Summary Assessment Progressed strengthening and stretching over pool noodle today. Also advanced balance exercises. Manual work and pt responds well. She con't to progress per report. Physical Therapy Plan Frequency and Duration Frequency of Treatment 2x/Week Duration of Treatment 8 weeks Plan of Care Start Date 08/08/20 Plan of Care End Date 10/08/20 Therapeutic Interventions Therapeutic Interventions Balance Training,Canalithic Repositioning,Coordination Training,Gait Training,Home Exercise Program,Joint Mobilizations,Manual Therapy, Neuromuscular Re-education, Patient/Caregiver Education, Self-Care/Home Management, Sensory Integration,Soft Tissue Mobilization,Taping, Therapeutic Activities, Therapeutic Exercises, Vestibular Rehabilitation Modalities Cold Pack/Ice Massage,Hot Packs Next Visit Focus/Plan Next Note Type Treatment Note Next Visit Plan Review and progress exercises as needed. Ongoing manual work .
--- NOTE | 2020-08-29 11:11 | PT.OTN ---
Current Diagnoses Syncope and collapse (08/29/20) Strain of muscle, fascia and tendon at neck level, initial encounter (08/29/20) Physical Therapy Treatment Note PT-OP-A Visit Information Start: 06/20/20 15:58 Freq: Status: Active Protocol: Document 08/29/20 10:32 MB (Rec: 08/29/20 11:09 MB [id number]) Out-Patient Physical Therapy Visit Information Visit Information Visit Type Treatment Note Visit Note High deductible, 20 visits a year Visit Start Time 10:32 Visit Stop Time 11:10 Total Visit Minutes 38 Visit Number 15 PT-OP-B Current Condition Start: 06/20/20 15:58 Freq: Status: Active Protocol: Document 07/01/20 07:29 MB (Rec: 07/01/20 07:47 MB [id number]) Current Condition History of Current Condition Onset Date April 2020 Current Complaints Severe headache that limits work History of Current Condition Pt states that she was taking her dog out in April and she fell on her front porch. She hit her head. She had another fall in 2018 where she tripped and she injured her right shoulder. She had PT on it and she got better. She is right handed. Pt reports tension and burning from her occiput down her back. She reports 8/10 pain. 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 Her pain is a lot worse with her work. She can barely do her job. She is having daily headaches. She cannot sleep well. Pt states that she was put on high blood pressure medicine on Wednesday. Pt has a history of feeling light-headed and a syncopal episode. A couple of years ago, she was diagnosed with concussion. She went to the ED and was given pills. Pt reports that her left arm sometimes goes numb when it is bent when she is sitting. PMH includes DM, elevated liver enzymes, Hep C, right ankle pain, severe ringing in both ears. Pt states that she gets to the point of tears at work. Prior Treatments and Tests MRI brain, conveyor monitor both NAD; US abdomen: cholecystectomy, liver echogenicity; cervical spine: multilevel cervical spondylosis. Treatment Goals Patient/Caregiver Goals To decrease headache PT-OP-C Subjective Start: 06/20/20 15:58 Freq: Status: Active Protocol: Document 08/29/20 10:32 MB (Rec: 08/29/20 11:09 MB [id number]) OP-PT Subjective Patient Comments Patient Comments Pt reports that her right shoulder feels sore after the exercises. PT-OP-J Posture/Palpation/Skin Start: 06/20/20 15:58 Freq: Status: Active Protocol: Document 07/01/20 07:29 MB (Rec: 07/01/20 12:45 MB [id number]) Posture Evaluation Comments Posture Comments Standing posture: decreased cervical lordosis, Dowager's hump, decreased thoracic kyphosis, increased lumbar lordosis and anterior tilt pelvis, increased overall body mass, right shoulder is mildly higher than the left and right scapula is mildly more protracted and higher than the left, left iliac crest is higher than the right , B knee valgus, pronation left foot and supination right foot. Pt reports some fire pain in her posterior neck and shoulder blades with looking down. PT-OP-K Range of Motion Start: 06/20/20 15:58 Freq: Status: Active Protocol: Document 07/01/20 07:29 MB (Rec: 07/01/20 12:45 MB [id number]) Cervical Spine Range of Motion Cervical Spine Active Testing Position Standing Comments Self-limits cervical ROM testing d/t c/o fire pain with cervical flexion in standing and pt mildly tearful today Shoulder Goniometric Range of Motion Shoulder ROM Limitations Comments B shoulder flexion and abduction normal PT-OP-M Strength Start: 06/20/20 15:58 Freq: Status: Active Protocol: Document 07/01/20 07:29 MB (Rec: 07/01/20 12:45 MB [id number]) Shoulder Strength Shoulder Manual Muscle Testing Bilateral Flexion 5 Normal Abduction (C5) 5 Normal External Rotation 5 Normal Internal Rotation 5 Normal Elbow/Forearm Strength Elbow and Forearm Manual Muscle Testing Bilateral Flexion (C6) 5 Normal Extension (C7) 5 Normal Pronation 5 Normal Supination 5 Normal Wrist Strength Wrist Manual Muscle Testing Bilateral Flexion (C7) 5 Normal Extension (C6) 5 Normal PT-OP-Q Treatments Start: 06/20/20 15:58 Freq: Status: Active Protocol: Document 08/29/20 10:32 MB (Rec: 08/29/20 11:09 MB [id number]) Therapeutic Exercises Sitting Exercises Anterior neck stretch Comments Hold sternum and look up, stretching SCM and platysma Manual Therapy Treatment Other Other Manual Treatments Manual work to help decreased tension of neck: right shoulder [place] Protocol and pt guards her shoulder during mobs and does tolerate well. She has increased tension at the joint line. MWM B middle scalenes with PT performing TrP pressure and pt performing active cervical rotation away, B 1st rib isometric, STM B pects PT-OP-T Assessment and Plan Start: 06/20/20 15:58 Freq: Status: Active Protocol: Document 08/29/20 10:32 MB (Rec: 08/29/20 11:09 MB [id number]) Physical Therapy Assessment Rehab Potential Rehabilitation Potential Fair Evaluation Complexity Number of Personal Factors/Comorbidities 1-2 Number of Body Systems Impaired 1-2 Clinical Presentation at Evaluation Evolving Impairments Impairments Activity Tolerance,Balance, Pain,Posture,ROM,Soft Tissue Mobility,Strength Other Impairments Personal factors include severity of pain, job requiring provocative position of pain (sitting and looking downward), body systems affected include musculoskeletal, neuromuscular , vestibular and visual motor, affect is tearful after concussion. Her clinical presentation is evolving. Other Concerns Fall Risk Yes Goals 3 [facility] Goal (LTG) Pt will perform progressive HEP with I including Buteyko Breathing, postural exercises, self-myofascial work, strengthening, balance and VOR exercises to improve pain and balance by 10/08/20. 08/08/20: Pt is performing racquet ball massage, back technical marketing engineer massage, shoulder flexion and abduction with cane in supine, open book, scapular retraction. LTG Duration 8 weeks 2 [facility] Goal (LTG) Pt will perform WNLs on a standardized balance test to decrease fall risk by 10/08/20. 08/08/20: FGA score is 22/30 with most trouble with head turns and walking with eyes closed and pt self-limits walking with eyes closed. She does not change brunilda much either LTG Duration 8 weeks 1 Impairment NDI reflects greater than 50% impairment on eval [facility] Goal (LTG) Pt will present with an improved NDI score to reflect no more than 20% impairment to reflect improvement in function and quality of life by 10/08/20. 08/08/20: NDI score is 20/50, which is 40% impairment LTG Duration 8 weeks Assessment Summary Assessment Manual work today and pt tolerates well and feels better after treatment. She has some dizziness with looking up for anterior neck stretch trial today. Physical Therapy Plan Frequency and Duration Frequency of Treatment 2x/Week Duration of Treatment 8 weeks Plan of Care Start Date 08/08/20 Plan of Care End Date 10/08/20 Therapeutic Interventions Therapeutic Interventions Balance Training,Canalithic Repositioning,Coordination Training,Gait Training,Home Exercise Program,Joint Mobilizations,Manual Therapy, Neuromuscular Re-education, Patient/Caregiver Education, Self-Care/Home Management, Sensory Integration,Soft Tissue Mobilization,Taping, Therapeutic Activities, Therapeutic Exercises, Vestibular Rehabilitation Modalities Cold Pack/Ice Massage,Hot Packs Next Visit Focus/Plan Next Note Type Treatment Note Next Visit Plan Review pool noodle and consider more strengthening over it including xs and PNF, thoracic rotation in sitting, cat/cow in standing and child' s pose, thread the needle at wall, ongoing manual work
--- NOTE | 2020-09-05 10:19 | PT-OP ANOTE ---
Pt no showed appointment. PT calls pt and speaks with her. She is apologetic and states that she though appointment was at 1030. PT lets her know next appointment times.
--- NOTE | 2020-09-23 12:53 | PT.OTN ---
Current Diagnoses Syncope and collapse (09/23/20) Strain of muscle, fascia and tendon at neck level, initial encounter (09/23/20) Physical Therapy Treatment Note PT-OP-A Visit Information Start: 06/20/20 15:58 Freq: Status: Active Protocol: Document 09/23/20 12:14 MB (Rec: 09/23/20 12:51 MB [id number]) Out-Patient Physical Therapy Visit Information Visit Information Visit Type Treatment Note Visit Note High deductible, 20 visits a year Visit Start Time 12:14 Visit Stop Time 12:52 Total Visit Minutes 38 Visit Number 16 PT-OP-B Current Condition Start: 06/20/20 15:58 Freq: Status: Active Protocol: Document 07/01/20 07:29 MB (Rec: 07/01/20 07:47 MB [id number]) Current Condition History of Current Condition Onset Date April 2020 Current Complaints Severe headache that limits work History of Current Condition Pt states that she was taking her dog out in April and she fell on her front porch. She hit her head. She had another fall in 2018 where she tripped and she injured her right shoulder. She had PT on it and she got better. She is right handed. Pt reports tension and burning from her occiput down her back. She reports 8/10 pain. 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 Her pain is a lot worse with her work. She can barely do her job. She is having daily headaches. She cannot sleep well. Pt states that she was put on high blood pressure medicine on Wednesday. Pt has a history of feeling light-headed and a syncopal episode. A couple of years ago, she was diagnosed with concussion. She went to the ED and was given pills. Pt reports that her left arm sometimes goes numb when it is bent when she is sitting. PMH includes DM, elevated liver enzymes, Hep C, right ankle pain, severe ringing in both ears. Pt states that she gets to the point of tears at work. Prior Treatments and Tests MRI brain, secured entrance monitor both NAD; US abdomen: cholecystectomy, liver echogenicity; cervical spine: multilevel cervical spondylosis. Treatment Goals Patient/Caregiver Goals To decrease headache PT-OP-C Subjective Start: 06/20/20 15:58 Freq: Status: Active Protocol: Document 09/23/20 12:14 MB (Rec: 09/23/20 12:51 MB [id number]) OP-PT Subjective Patient Comments Patient Comments Pt just got back from vacation . She only had one headache. She was able to carry around her grand-child. She has enough exercises. She has gotten what she wanted out of PT. PT-OP-J Posture/Palpation/Skin Start: 06/20/20 15:58 Freq: Status: Active Protocol: Document 07/01/20 07:29 MB (Rec: 07/01/20 12:45 MB [id number]) Posture Evaluation Comments Posture Comments Standing posture: decreased cervical lordosis, Dowager's hump, decreased thoracic kyphosis, increased lumbar lordosis and anterior tilt pelvis, increased overall body mass, right shoulder is mildly higher than the left and right scapula is mildly more protracted and higher than the left, left iliac crest is higher than the right , B knee valgus, pronation left foot and supination right foot. Pt reports some fire pain in her posterior neck and shoulder blades with looking down. PT-OP-K Range of Motion Start: 06/20/20 15:58 Freq: Status: Active Protocol: Document 07/01/20 07:29 MB (Rec: 07/01/20 12:45 MB [id number]) Cervical Spine Range of Motion Cervical Spine Active Testing Position Standing Comments Self-limits cervical ROM testing d/t c/o fire pain with cervical flexion in standing and pt mildly tearful today Shoulder Goniometric Range of Motion Shoulder ROM Limitations Comments B shoulder flexion and abduction normal PT-OP-M Strength Start: 06/20/20 15:58 Freq: Status: Active Protocol: Document 07/01/20 07:29 MB (Rec: 07/01/20 12:45 MB [id number]) Shoulder Strength Shoulder Manual Muscle Testing Bilateral Flexion 5 Normal Abduction (C5) 5 Normal External Rotation 5 Normal Internal Rotation 5 Normal Elbow/Forearm Strength Elbow and Forearm Manual Muscle Testing Bilateral Flexion (C6) 5 Normal Extension (C7) 5 Normal Pronation 5 Normal Supination 5 Normal Wrist Strength Wrist Manual Muscle Testing Bilateral Flexion (C7) 5 Normal Extension (C6) 5 Normal PT-OP-Q Treatments Start: 06/20/20 15:58 Freq: Status: Active Protocol: Document 09/23/20 12:14 MB (Rec: 09/23/20 12:51 MB [id number]) Therapeutic Exercises Supine Exercises Pool noodle exercises Supine Exercise Name Pect stretch, shoulder ER, PNF Equipment Used Purple pool noodle, level 1 and 2 bands Comments 10 reps shoulder ER (level 2), PNF (level 1) Sitting Exercises Thoracic rotation in sitting Comments Pt is already performing at work Other Exercises Reviewed exercises during progress note Comments Performed this today, on d/c date Racquet ball self-massage Comments Intrascapular muscles STM Manual Therapy Treatment Other Other Manual Treatments STM and MWM left middle scalene and upper traps, suboccipital release, B pect positional release PT-OP-T Assessment and Plan Start: 06/20/20 15:58 Freq: Status: Active Protocol: Document 09/23/20 12:14 MB (Rec: 09/23/20 12:51 MB [id number]) Physical Therapy Assessment Rehab Potential Rehabilitation Potential Fair Evaluation Complexity Number of Personal Factors/Comorbidities 1-2 Number of Body Systems Impaired 1-2 Clinical Presentation at Evaluation Evolving Impairments Impairments Activity Tolerance,Balance, Pain,Posture,ROM,Soft Tissue Mobility,Strength Other Impairments Personal factors include severity of pain, job requiring provocative position of pain (sitting and looking downward), body systems affected include musculoskeletal, neuromuscular , vestibular and visual motor, affect is tearful after concussion. Her clinical presentation is evolving. Other Concerns Fall Risk Yes Goals 3 Alf Goal (LTG) Pt will perform progressive HEP with I including [place] Breathing, postural exercises, self-myofascial work, strengthening, balance and VOR exercises to improve pain and balance by 10/08/20. 09/23/20: Pt is performing racquet ball massage, back check weigher massage, open book, pool noodle strengthening exercises and pect stretch. LTG Duration Met 2 Mill Worker Goal (LTG) Pt will perform WNLs on a standardized balance test to decrease fall risk by 10/08/20. 09/23/20: Balance test not performed d/t pt wearing flip flops. She states that she could walk while carrying her grand-baby and also walk on the beach during vacations. LTG Duration Not tested on d/c date 1 Impairment NDI reflects greater than 50% impairment on eval Mill Worker Goal (LTG) Pt will present with an improved NDI score to reflect no more than 20% impairment to reflect improvement in function and quality of life by 10/08/20. 09/23/20: NDI score reflects 14% impairment LTG Duration Met Assessment Summary Assessment Pt reports that she is feeling a lot better. She has met NDI score goal. She is performing progressive HEP exercises. She will con't these at d/c. She is ready for d/c. Will d/c PT. Physical Therapy Plan Discharge Physical Therapy Discharge Reasons Goals Met
== END 2020-09-24 09:02 | disposition home or self-care (01) ==
LOC: PHYS 12:15
PROVIDERS: Family Provider Nurse Practitioner Family; PCP Nurse Practitioner Family; Referring Provider Family Medicine; Visit Provider Family Medicine
DX: S16.1XXA Strain of muscle, fascia and tendon at neck level, initial encounter (principal); R55 Syncope and collapse
CPT/HCPCS: 97110; 97112; 97140; 97161; 97530; 97535

== ENCOUNTER → 2022-02-04 07:21 | Outpatient (CLI) | payer BC, SELFPAY ==
[2022-02-04 09:26] LABS: Add Manual Diff / Slide Review NO; Basophils Absolute Auto 100 /uL (0-100); Basophils Percent Auto 1.1 % (0-2); Eosinophils Absolute Auto 300 /uL (0-450); Eosinophils Percent Auto 4.1 % (2-4); Hematocrit 42.4 % (36-46); Hemoglobin 14.3 g/dL (12.0-16.0); Lymphocytes Absolute Auto 2300 /uL (1100-4500); Lymphocytes Percent Auto 31.2 % (25-40); Mean Corpuscular HGB Conc 33.7 % (30-36); Mean Corpuscular Hemoglobin 28.2 PG (26-34); Mean Corpuscular Volume 83.5 fL (80-100); Monocytes Absolute Auto 500 /uL (0-900); Monocytes Percent Auto 6.3 % (3-14); Neutrophils Absolute Auto 4200 /uL (1500-7000); Neutrophils Percent Auto 57.3 % (50-75); Platelet Count 240 X10^3/uL (150-400); Red Blood Cell Count 5.07 X10^6/uL (4.0-5.2); Red Cell Distribution Width 13.1 % (11.6-14.8); White Blood Cell Count 7.3 X10^3/uL (4.5-11.0)
[2022-02-04 10:18] LABS: Alanine Aminotransferase 29 IU/L (<35); Albumin 4.6 g/dL (3.5-5.0); Albumin Globulin Ratio 1.5 (1.0-2.8); Alkaline Phosphatase 91 U/L (38-126); Aspartate Aminotransferase 29 IU/L (14-36); BUN Creatinine Ratio 19.7 (6-22); Bilirubin Total 0.5 mg/dL (0.2-1.3); Blood Urea Nitrogen 13 mg/dL (7-17); Carbon Dioxide 26 mmol/L (22-32); Chloride 104 mmol/L (98-107); Cholesterol 113 mg/dL (140-199); Estimated Glomerular Filt Rate > 60 mL/min (>60); Glucose 124 mg/dL (70-100); HDL Cholesterol 63 mg/dL (40-60); HEMOLYSIS < 15 (0-50); LDL Cholesterol Calculated 29 mg/dL (<100); Sodium 139 mmol/L (137-145); Total Protein 7.6 g/dL (6.3-8.2); Triglycerides 104 mg/dL (35-150)
== END ==
PROVIDERS: Family Provider Nurse Practitioner Family; PCP Family Medicine; Referring Provider Family Medicine; Visit Provider Family Medicine
DX: E11.9 Type 2 diabetes mellitus without complications (principal); Z00.00 Encounter for general adult medical examination without abnormal findings; K76.0 Fatty (change of) liver, not elsewhere classified
CPT/HCPCS: 36415; 80053; 80061; 85025

== ENCOUNTER 2022-04-21 13:48 | Emergency (ER) | payer BC, SELFPAY ==
[2022-04-21 14:02] VITALS: BP 145/83; PULSE 78; RESP 16; TEMP 36.6; O2SAT 100; BMI 38.4
[2022-04-21 15:11] LABS: Add Manual Diff / Slide Review NO; Basophils Absolute Auto 100 /uL (0-100); Basophils Percent Auto 0.9 % (0-2); Eosinophils Absolute Auto 700 /uL (0-450); Hematocrit 40.1 % (36-46); Hemoglobin 13.5 g/dL (12.0-16.0); Lymphocytes Absolute Auto 2000 /uL (1100-4500); Lymphocytes Percent Auto 23.4 % (25-40); Mean Corpuscular HGB Conc 33.7 % (30-36); Mean Corpuscular Hemoglobin 28.3 PG (26-34); Mean Corpuscular Volume 83.8 fL (80-100); Monocytes Absolute Auto 500 /uL (0-900); Monocytes Percent Auto 5.8 % (3-14); Neutrophils Absolute Auto 5200 /uL (1500-7000); Neutrophils Percent Auto 61.9 % (50-75); Platelet Count 208 X10^3/uL (150-400); Red Blood Cell Count 4.79 X10^6/uL (4.0-5.2); White Blood Cell Count 8.4 X10^3/uL (4.5-11.0)
[2022-04-21 15:19] LABS: Alanine Aminotransferase 27 IU/L (<35); Albumin 4.7 g/dL (3.5-5.0); Albumin Globulin Ratio 1.5 (1.0-2.8); Alkaline Phosphatase 102 U/L (38-126); Aspartate Aminotransferase 30 IU/L (14-36); BUN Creatinine Ratio 17.9 (6-22); Bilirubin Total 0.5 mg/dL (0.2-1.3); Blood Urea Nitrogen 10 mg/dL (7-17); Calcium 8.8 mg/dL (8.4-10.2); Carbon Dioxide 26 mmol/L (22-32); Chloride 102 mmol/L (98-107); Estimated Glomerular Filt Rate > 60 mL/min (>60); Globulin 3.1 g/dL (1.7-4.1); Glucose 98 mg/dL (70-100); HEMOLYSIS < 15 (0-50); Lipase 490 U/L (23-300); Potassium 4.2 mmol/L (3.4-5.1); Sodium 138 mmol/L (137-145); Total Protein 7.8 g/dL (6.3-8.2)
--- NOTE | 2022-04-21 18:37 | DI.CT.S_ITS ---
PROCEDURE: CT ABDOMEN PELVIS W CON INDICATIONS: lower abd pain eval for obstruction TECHNIQUE: After the administration of IV contrast, axial sections were acquired from the lung bases to the pubic symphysis. Coronal and sagittal reformats were performed. For radiation dose reduction, the following was used: automated exposure control, adjustment of mA and/or kV according to patient size. COMPARISON: [facility], CT, CT KUB, 10/01/2020, 20:26. FINDINGS: Image quality: Excellent. Lung bases: There is mild dependent atelectasis bilaterally. Heart: Heart is normal in size. ABDOMEN: Liver: No mass lesion. Gallbladder: Surgically absent. Biliary ducts: There is pneumobilia demonstrated without definite biliary ductal dilatation. Pancreas: Unremarkable. Spleen: Normal in size. Adrenal Glands: No adrenal nodules. Kidneys and Ureters: No hydronephrosis. Stomach and Bowel: Stomach, small bowel loops, and colon are normal in caliber and wall thickness. Appendix is normal. Peritoneum: No abnormal intraperitoneal fluid. No free air. Ventral Wall: No hernia. Abdominal Nodes: No retroperitoneal or mesenteric adenopathy by size criteria. Vessels: Aorta and inferior vena cava are normal in size. PELVIS: Pelvic Organs: Unremarkable. Bladder: Unremarkable. Pelvic Nodes: No enlarged lymph nodes. Miscellaneous: No inguinal hernias are seen. Bones: Visualized osseous structures demonstrate no suspicious focal lesions. IMPRESSION: 1. No evidence of bowel obstruction. 2. No evidence of appendicitis. 3. Pneumobilia demonstrated likely reflecting sequelae of prior ampullary intervention. Dictated by: Chris Banda M.D. on 04/21/2022 at 20:24 Approved by: Chris Banda M.D. on 04/21/2022 at 20:27
--- NOTE | 2022-04-21 18:37 | ED.GENADULT ---
HPI - General Adult General Chief complaint: Abdominal Pain Stated complaint: lower Abd pain, SOB, constipation Time Seen by Provider: 04/21/22 18:09 Source: patient Mode of arrival: Ambulatory History of Present Illness HPI narrative: 56-year-old female who for the past couple days has had lower abdominal pain that she states feels like menstrual cramps. She has had hysterectomy. She is also had dysuria. Has had decreased stool output recently. Also was having dysuria. Feels like her symptoms are getting worse. No chest pain. No fevers. Has had multiple abdominal surgeries. Also is having nausea. Related Data Home Medications Medication Instructions Recorded Confirmed nortriptyline 10 mg capsule 20 mg PO BEDTIME 11/24/21 02/13/22 aspirin 81 mg tablet,delayed 81 mg PO DAILY 02/13/22 02/13/22 release (Adult Aspirin Regimen) Previous Rx's Medication Instructions Recorded metformin 1,000 mg tablet 1,000 mg PO DAILY #90 tabs 02/13/22 rosuvastatin 5 mg tablet 5 mg PO DAILY #90 tabs 02/13/22 dicyclomine 10 mg capsule 10 mg PO TID PRN abdominal pain 04/21/22 #21 caps Allergies Allergy/AdvReac Type Severity Reaction Status Date / Time No Known Drug Allergies Allergy Verified 04/21/22 14:02 Review of Systems Constitutional Constitutional: Reports system reviewed and no additional complaints, except as documented Respiratory Respiratory: Reports system reviewed and no additional complaints, except as documented Gastrointestinal Gastrointestinal: Reports system reviewed and no additional complaints, except as documented Genitourinary Genitourinary: Reports system reviewed and no additional complaints, except as documented Integumentary/Breasts Skin/Breast: Reports system reviewed and no additional complaints, except as documented Hematologic/Lymphatic On Anticoagulants: No Patient History Medical History Abnormal Pap smear of cervix (~1991) Anxiety (~1993) Cataracts, bilateral (~2016) Chicken pox Chronic back pain Depression Diabetes (~2008) Diabetes mellitus type 2, diet-controlled (04/2019) Dizziness (2018) Elevated blood pressure reading Elevated liver enzymes Episode of syncope (04/2020) Fatty liver (~2014) Foot pain (~2016) Hearing loss Hepatitis C (~1998) History of hepatitis C (1999) History of urinary incontinence (~2017) Insomnia Measles Mumps Myopia Nausea Neck strain (04/2020) Ovarian cyst (~1991) Palpitations Perioral dermatitis Right upper quadrant pain (04/2020) Rotator cuff tear (10/2018) Shoulder pain (~2018) Tinnitus Type 2 diabetes mellitus (2009) Urinary frequency Vertigo (~2017) Surgical History (Updated 04/11/19 @ 20:16 by Flavia Yan) Anesthesia History of section History of cholecystectomy (~1992) History of hysterectomy (~1998) History of laparoscopy History of liver biopsy (~1997) History of tubal ligation (~1991) Hx of removal of ovary (~1991) Family History (Updated 04/11/19 @ 20:24 by Flavia Yan) Father Diabetes mellitus History of heart disease Hyperlipidemia Hypertension Stroke Mother Graves disease Grandfather Cancer Grandmother History of heart disease Grandfather Cancer Grandmother Cancer Social History Smoking Status: Current every day smoker Tobacco: How many years used: 30 second hand exposure: Yes (sometimes at work) alcohol intake: current substance use type: does not use Smoking Status: Current every day smoker tobacco type: vaping alcohol intake frequency: holidays/special occasions only Substance Use Type: does not use Exam Initial Vital Signs Initial Vital Signs: Vital Signs Temperature 97.8 F 04/21/22 14:02 Pulse Rate 78 04/21/22 14:02 Respiratory Rate 16 04/21/22 14:02 Blood Pressure 145/83 H 04/21/22 14:02 Pulse Oximetry 100 04/21/22 14:02 Oxygen Delivery Method Room Air 04/21/22 14:02 Const General: cooperative and comfortable HENMT Head: normal to inspection and normocephalic Resp Effort & Inspection: normal respiratory effort Cardio Rate: regular rate GI Inspection: normal to inspection and non-distended Palpation: soft, No firm, No guarding and tender Back/Spine/Pelvis Back: No CVA tenderness Skin General: no rashes or lesions noted Extrem General: normal to inspection and capillary refill normal Course Orders Ordered: ED Orders 04/21/22 18:37 CT abdomen pelvis w con Stat 04/21/22 19:24 EKG-12 Lead Routine Discontinued Medications Dicyclomine HCl (Dicyclomine 10 Mg Capsule) 10 mg PO NOW ONE Stop: 04/21/22 20:40 Last Admin: 04/21/22 20:49 Dose: 10 mg Documented By: ALIZA Ondansetron HCl (Ondansetron 4 Mg Odt) 4 mg PO NOW PRN PRN Reason: Nausea And Vomiting Ondansetron HCl (Ondansetron 4 Mg/2 Ml Inj) 4 mg IV NOW PRN PRN Reason: Nausea And Vomiting Vital Signs Vital signs: Vital Signs - 8 hr 04/21/22 20:42 Pulse Rate 67 Respiratory Rate 16 Blood Pressure 136/75 Pulse Oximetry 95 Oxygen Delivery Method Room Air Medical Decision Making Lab Data Lab results reviewed: Yes I reviewed the patient's lab results. 04/21/22 15:01 04/21/22 15:01 Labs: Lab Results 04/21/22 04/21/22 Range/Units 15:01 15:01 WBC 8.4 (4.5-11.0) X10^3/uL RBC 4.79 (4.0-5.2) X10^6/uL Hgb 13.5 (12.0-16.0) g/dL Hct 40.1 (36-46) % MCV 83.8 (80-100) fL MCH 28.3 (26-34) PG MCHC 33.7 (30-36) % RDW 13.0 (11.6-14.8) % Plt Count 208 (150-400) X10^3/uL Neut % (Auto) 61.9 (50-75) % Lymph % (Auto) 23.4 L (25-40) % Reynolds % (Auto) 5.8 (3-14) % Eos % (Auto) 8.0 H (2-4) % Baso % (Auto) 0.9 (0-2) % Neut # (Auto) 5200 (9389-1921) /uL Lymph # (Auto) 2000 (6941-3241) /uL Reynolds # (Auto) 500 (0-900) /uL Eos # (Auto) 700 H (0-450) /uL Baso # (Auto) 100 (0-100) /uL Sodium 138 (137-145) mmol/L Potassium 4.2 (3.4-5.1) mmol/L Chloride 102 (98-107) mmol/L Carbon Dioxide 26 (22-32) mmol/L BUN 10 (7-17) mg/dL Creatinine 0.56 (0.52-1.04) mg/dL Estimated GFR > 60 (>60) mL/min BUN/Creatinine Ratio 17.9 (6-22) Glucose 98 (70-100) mg/dL Calcium 8.8 (8.4-10.2) mg/dL Total Bilirubin 0.5 (0.2-1.3) mg/dL AST 30 (14-36) IU/L ALT 27 (<35) IU/L Alkaline Phosphatase 102 (38-126) U/L Total Protein 7.8 (6.3-8.2) g/dL Albumin 4.7 (3.5-5.0) g/dL Globulin 3.1 (1.7-4.1) g/dL Albumin/Globulin Ratio 1.5 (1.0-2.8) Lipase 490 H (23-300) U/L Urine Dip Bedside Urine Glucose Negative Bedside Urine Bilirubin - Negative Bedside Urine Ketone - Negative Urine Specific [place] 1.015 Bedside Urine Occult Blood - Negative Bedside Urine pH 6.0 Bedside Urine Protein - Negative Bedside Urine Urobilinogen - Negative Bedside Urine Nitrite - Negative Bedside Urine Leukocytes - Negative Esterase Point of care testing: Urine Dip Bedside Urine Glucose Negative Bedside Urine Bilirubin - Negative Bedside Urine Ketone - Negative Urine Specific [place] 1.015 Bedside Urine Occult Blood - Negative Bedside Urine pH 6.0 Bedside Urine Protein - Negative Bedside Urine Urobilinogen - Negative Bedside Urine Nitrite - Negative Bedside Urine Leukocytes - Negative Esterase Imaging Data CT scan - abdomen/pelvis: Radiologist's Impression: PROCEDURE:? CT ABDOMEN PELVIS W CON ? INDICATIONS:? lower abd pain eval for obstruction ? TECHNIQUE:? After the administration of IV contrast, axial sections were acquired from the lung bases to the pubic symphysis.? Coronal and sagittal reformats were performed.? For radiation dose reduction, the following was used:? automated exposure control, adjustment of mA and/or kV according to patient size. ? COMPARISON:? [facility], CT, CT KUB, 10/01/2020, 20:26. ? FINDINGS:? Image quality:? Excellent.? ? Lung bases:? There is mild dependent atelectasis bilaterally.? ? Heart:? Heart is normal in size. ? ? ABDOMEN: Liver:? No mass lesion. Gallbladder:? Surgically absent. Biliary ducts:? There is pneumobilia demonstrated without definite biliary ductal dilatation. Pancreas:? Unremarkable.? ? Spleen:? Normal in size.? ? Adrenal Glands:? No adrenal nodules.? ? Kidneys and Ureters:? No hydronephrosis.? ? ? Stomach and Bowel:? Stomach, small bowel loops, and colon are normal in caliber and wall thickness.? Appendix is normal. Peritoneum:? No abnormal intraperitoneal fluid.? No free air.? ? Ventral Wall: ? No hernia.? Abdominal Nodes:? No retroperitoneal or mesenteric adenopathy by size criteria.? Vessels:? Aorta and inferior vena cava are normal in size.? ? PELVIS: Pelvic Organs:? Unremarkable.? ? Bladder:? Unremarkable.? ? Pelvic Nodes: No enlarged lymph nodes.? Miscellaneous: No inguinal hernias are seen. ? ? ? Bones:? Visualized osseous structures demonstrate no suspicious focal lesions. ? IMPRESSION:? ? 1. No evidence of bowel obstruction. ? 2. No evidence of appendicitis. ? 3. Pneumobilia demonstrated likely reflecting sequelae of prior ampullary intervention.? ECG Data Attestation: I personally reviewed and interpreted this ECG as follows: Interpretation: Sinus rhythm Ventricular rate is 69 Normal axis Normal QRS Normal QTC No ST T wave changes MDM Narrative Medical decision making narrative: Patient has a benign exam, vital signs unremarkable, labs unremarkable, EKG unremarkable, urinalysis unremarkable, CT scan is unremarkable. Patient is aware of the lack of a definitive diagnosis of her abdominal pain however does not appear to be a surgical, infectious requiring antibiotics, UTI, bowel obstruction, hernia other emergent condition. We did discuss the importance of being on medications to help maintain normal daily bowel movements. No indication for admission to the hospital. No indication for surgical consultation. Will discharge patient home with return precautions. She expressed understanding and agreement. Discharge Plan Departure Patient Disposition: Home Clinical Impression: Abdominal pain Instructions: DI for Abdominal Pain-Adult Activity Restrictions/Additional Instructions: I do recommend that you start on a good bowel regimen in order to maintain daily soft stools. You can continue with the magnesium or try other laxative such as MiraLax. A prescription for an antispasm medicine was sent to [facility]. You can take it as needed and as directed. Return to the emergency department for any new symptoms. Contact your primary doctor for a follow-up. Prescriptions: New dicyclomine 10 mg capsule 10 mg PO TID PRN (Reason: abdominal pain) Qty: 21 0RF No Action nortriptyline 10 mg capsule 20 mg PO BEDTIME rosuvastatin 5 mg tablet 5 mg PO DAILY Qty: 90 0RF aspirin [Adult Aspirin Regimen] 81 mg tablet,delayed release (DR/EC) 81 mg PO DAILY metformin 1,000 mg tablet 1,000 mg PO DAILY Qty: 90 3RF Referrals: Kellie Cruz DO [Primary Care Provider] - Stand Alone Forms: Patient Portal/API
[2022-04-21 20:42] VITALS: BP 136/75; PULSE 67; RESP 16; O2SAT 95
[2022-04-21] MEDS: DICYCLOMINE 10 MG CAPSULE PO (20:49)
== END 2022-04-21 20:50 | disposition home or self-care (01) ==
PROVIDERS: Emergency Medicine; Emergency Provider Emergency Medicine; Family Provider Nurse Practitioner Family; PCP Family Medicine
DX: R10.30 Lower abdominal pain, unspecified (principal); R30.0 Dysuria
CPT/HCPCS: 36415; 74177; 80053; 81003; 83690; 85025; 93005; 99284

== ENCOUNTER → 2022-08-26 11:14 | Outpatient (CLI) | payer BC, SELFPAY ==
[2022-08-26 12:28] LABS: Add Manual Diff / Slide Review NO; Basophils Absolute Auto 100 /uL (0-100); Basophils Percent Auto 0.8 % (0-2); Eosinophils Absolute Auto 200 /uL (0-450); Eosinophils Percent Auto 3.6 % (2-4); Hematocrit 39.5 % (36-46); Hemoglobin 13.6 g/dL (12.0-16.0); Lymphocytes Absolute Auto 1900 /uL (1100-4500); Lymphocytes Percent Auto 29.2 % (25-40); Mean Corpuscular HGB Conc 34.5 % (30-36); Mean Corpuscular Hemoglobin 28.6 PG (26-34); Mean Corpuscular Volume 82.8 fL (80-100); Monocytes Absolute Auto 400 /uL (0-900); Monocytes Percent Auto 6.3 % (3-14); Neutrophils Absolute Auto 3900 /uL (1500-7000); Neutrophils Percent Auto 60.1 % (50-75); Platelet Count 196 X10^3/uL (150-400); Red Blood Cell Count 4.77 X10^6/uL (4.0-5.2); Red Cell Distribution Width 13.3 % (11.6-14.8); White Blood Cell Count 6.5 X10^3/uL (4.5-11.0)
[2022-08-26 13:05] LABS: Alanine Aminotransferase 23 IU/L (<35); Albumin 4.4 g/dL (3.5-5.0); Albumin Globulin Ratio 1.7 (1.0-2.8); Alkaline Phosphatase 79 U/L (38-126); Aspartate Aminotransferase 26 IU/L (14-36); BUN Creatinine Ratio 19.7 (6-22); Bilirubin Total 0.3 mg/dL (0.2-1.3); Blood Urea Nitrogen 13 mg/dL (7-17); Calcium 9.3 mg/dL (8.4-10.2); Carbon Dioxide 31 mmol/L (22-32); Chloride 96 mmol/L (98-107); Estimated Glomerular Filt Rate > 60 mL/min (>60); Globulin 2.6 g/dL (1.7-4.1); Glucose 98 mg/dL (70-100); HEMOLYSIS < 15 (0-50); Potassium 3.2 mmol/L (3.4-5.1); Sodium 138 mmol/L (137-145)
[2022-08-26 13:19] LABS: Free T4, Direct Thyroxine 0.89 ng/dL (0.78-2.19)
[2022-08-26 13:33] LABS: Thyroid Stimulating Hormone 1.37 uIU/mL (0.47-4.68)
== END ==
PROVIDERS: Physician Assistant; Family Provider Nurse Practitioner Family; PCP Family Medicine; Referring Provider Family Medicine; Visit Provider Family Medicine
DX: R19.4 Change in bowel habit (principal)
CPT/HCPCS: 36415; 80053; 84439; 84443; 85025

== ENCOUNTER → 2023-01-06 09:41 | Outpatient (CLI) | payer BC, SELFPAY | PROVIDERS: PCP Family Medicine; Referring Provider Family Medicine; Visit Provider Family Medicine | DX: I10 Essential (primary) hypertension (principal); Z68.41 Body mass index [BMI] 40.0-44.9, adult; G45.9 Transient cerebral ischemic attack, unspecified; E11.9 Type 2 diabetes mellitus without complications; K76.0 Fatty (change of) liver, not elsewhere classified | CPT/HCPCS: 36415; 83036 ==

== ENCOUNTER → 2023-01-11 16:24 | Outpatient (CLI) | payer BC, SELFPAY ==
[2023-01-11 19:04] LABS: Influenza A - CEPHEID Flu A NEGATIVE (NEGATIVE); Influenza B - CEPHEID Flu B NEGATIVE (NEGATIVE); Respiratory Syncytial Virus Negative (Negative)
[2023-01-11 19:06] LABS: COVID-19 CEPHEID 4-PLEX PCR Negative (Negative)
== END ==
PROVIDERS: PCP Family Medicine; Visit Provider Family Medicine
DX: J02.9 Acute pharyngitis, unspecified (principal)
CPT/HCPCS: 0241U; 87070

== ENCOUNTER → 2023-01-18 14:25 | Outpatient (CLI) | payer BC, SELFPAY ==
--- NOTE | 2023-01-18 14:26 | DI.RAD.S_ITS ---
PROCEDURE: XR WRIST LT MIN 3V INDICATIONS: distal radial and ulnar pain after fall on outstretched hand TECHNIQUE: 4 views of the wrist were acquired. COMPARISON: None. FINDINGS: Bones: No fractures or dislocations. Normal alignment. Joint spaces are maintained. No suspicious bony lesions. Soft tissues: No suspicious soft tissue calcifications. Scaphoid view: Intact. IMPRESSION: No acute bony abnormality. If there is point tenderness of the scaphoid, consider repeat radiograph in 7-10 days or cross-sectional imaging. Dictated by: Ольга Ramos M.D. on 01/18/2023 at 17:24 Approved by: Ольга Ramos M.D. on 01/18/2023 at 17:25
== END ==
PROVIDERS: PCP Family Medicine; Referring Provider Family Medicine; Visit Provider Family Medicine
DX: M25.532 Pain in left wrist (principal)
CPT/HCPCS: 73110

== ENCOUNTER → 2023-02-17 14:55 | Outpatient (CLI) | payer BC, SELFPAY ==
--- NOTE | 2023-02-17 | DI.MG.S_ITS ---
BILATERAL DIGITAL SCREENING MAMMOGRAM 3D/2D WITH CAD: 02/17/2023 CLINICAL: Routine screening. Baseline exam. No prior exams were available for comparison. There are scattered areas of fibroglandular density in both breasts (category b / 25%-50% glandular tissue). Current study was also evaluated with a Computer Aided Detection (CAD) system. No significant masses, calcifications, or other findings are seen in either breast. IMPRESSION: NEGATIVE There is no mammographic evidence of malignancy. A 1 year screening mammogram is recommended. Based on the Tyrer Cuzick model (a risk assessment model) the patient's lifetime risk is 5.1% and her 10 year risk is 1.6%. According to the ACR, ACS, and NCCN guidelines, an annual breast MRI exam along with mammogram is recommended if the patient's lifetime risk is 20% or greater. This exam was interpreted at Station ID: [id number]. NOTE: For mammograms, a report in lay terms will be sent to the patient. Approximately 15% of breast malignancies will not be visualized mammographically. In the management of a palpable breast mass, a negative mammogram must not discourage biopsy of a clinically suspicious lesion. Electronically Signed By: Staci Howard M.D., PH.D natalia/tariq:02/18/2023 08:45:55 letter sent: Normal Exam ACR BI-RADS Category 1: Negative [id number]
[2023-02-17 16:59] LABS: Alanine Aminotransferase 39 IU/L (<35); Albumin 4.7 g/dL (3.5-5.0); Albumin Globulin Ratio 1.5 (1.0-2.8); Alkaline Phosphatase 75 U/L (38-126); BUN Creatinine Ratio 21.1 (6-22); Bilirubin Total 0.6 mg/dL (0.2-1.3); Blood Urea Nitrogen 15 mg/dL (7-17); Calcium 9.9 mg/dL (8.4-10.2); Carbon Dioxide 27 mmol/L (22-32); Chloride 99 mmol/L (98-107); Cholesterol 153 mg/dL (140-199); Estimated Glomerular Filt Rate > 60 mL/min (>60); Globulin 3.2 g/dL (1.7-4.1); Glucose 122 mg/dL (70-100); HDL Cholesterol 65 mg/dL (40-60); HEMOLYSIS < 15 (0-50); LDL Cholesterol Calculated 42 mg/dL (<100); Potassium 3.3 mmol/L (3.4-5.1); Sodium 137 mmol/L (137-145); Total Protein 7.9 g/dL (6.3-8.2); Triglycerides 232 mg/dL (35-150)
[2023-02-19 15:51] LABS: Aspartate Aminotransferase 45 IU/L (14-36)
== END ==
PROVIDERS: PCP Family Medicine; Referring Provider Family Medicine; Visit Provider Family Medicine
DX: G45.9 Transient cerebral ischemic attack, unspecified (principal); I10 Essential (primary) hypertension; E11.9 Type 2 diabetes mellitus without complications; K76.0 Fatty (change of) liver, not elsewhere classified; Z12.31 Encounter for screening mammogram for malignant neoplasm of breast
CPT/HCPCS: 36415; 77063; 77067; 80053; 80061

== ENCOUNTER → 2023-02-24 09:08 | Outpatient (CLI) | payer BC, SELFPAY ==
[2023-02-24 10:25] LABS: Add Manual Diff / Slide Review NO; Basophils Absolute Auto 100 /uL (0-100); Basophils Percent Auto 0.9 % (0-2); Eosinophils Absolute Auto 300 /uL (0-450); Eosinophils Percent Auto 3.6 % (2-4); Hematocrit 40.6 % (36-46); Hemoglobin 13.8 g/dL (12.0-16.0); Lymphocytes Absolute Auto 1700 /uL (1100-4500); Lymphocytes Percent Auto 22.7 % (25-40); Mean Corpuscular Hemoglobin 28.5 PG (26-34); Mean Corpuscular Volume 83.9 fL (80-100); Monocytes Absolute Auto 500 /uL (0-900); Monocytes Percent Auto 6.9 % (3-14); Neutrophils Absolute Auto 4800 /uL (1500-7000); Neutrophils Percent Auto 65.9 % (50-75); Platelet Count 205 X10^3/uL (150-400); Red Blood Cell Count 4.83 X10^6/uL (4.0-5.2); Red Cell Distribution Width 13.5 % (11.6-14.8); White Blood Cell Count 7.3 X10^3/uL (4.5-11.0)
[2023-02-24 10:39] LABS: Hemoglobin A1C% w Est Avg Glu 5.7 % (4.0-6.0)
[2023-02-24 10:42] LABS: Alanine Aminotransferase 28 IU/L (<35); Albumin 4.3 g/dL (3.5-5.0); Albumin Globulin Ratio 1.5 (1.0-2.8); Alkaline Phosphatase 92 U/L (38-126); Aspartate Aminotransferase 29 IU/L (14-36); BUN Creatinine Ratio 20.9 (6-22); Bilirubin Total 0.5 mg/dL (0.2-1.3); Blood Urea Nitrogen 14 mg/dL (7-17); Calcium 9.6 mg/dL (8.4-10.2); Carbon Dioxide 28 mmol/L (22-32); Chloride 101 mmol/L (98-107); Estimated Glomerular Filt Rate > 60 mL/min (>60); Globulin 2.8 g/dL (1.7-4.1); Glucose 125 mg/dL (70-100); HEMOLYSIS < 15 (0-50); Potassium 3.4 mmol/L (3.4-5.1); Sodium 139 mmol/L (137-145); Total Protein 7.1 g/dL (6.3-8.2)
== END ==
PROVIDERS: PCP Family Medicine; Referring Provider Family Medicine; Visit Provider Family Medicine
DX: I10 Essential (primary) hypertension (principal); E11.9 Type 2 diabetes mellitus without complications
CPT/HCPCS: 36415; 80053; 83036; 85025

== ENCOUNTER → 2023-04-21 14:18 | Outpatient (CLI) | payer BC, SELFPAY ==
--- NOTE | 2023-04-22 14:22 | DIAB.MNT ---
Initial Diabetes Medical Nutrition Therapy Assessment Name: Gerri Gamble Date: 04/21/23 Time: 230-345p Dx: Type II Diabetes Gerri presents for Dm follow-up. Reports Dm dx 10 years ago. h/o hgA1c under 7% (peak per PCP notes). Recent labs indicate 5.7% with Metfomrin and ozempic. States she would like to know more about nutrition. Has h/o weight loss through dieting, including very low kcal diet of 700kcal/day, lost 100#, regained 30#, then lost 13# with ozempic. Low kcal diet was difficult to sustain per report and cost $600 per month. She did stick with it for one year. States nothing sounds good in terms of food choices. States she felt this way even before ozempic. Some days she is tracking food intake with goal of 1700kcal or less. Reports eating some foods she does not like that are high in protein for the sake of dieting. Aiming for 25-30g pro per meal. Limited veggies. Sick of 's cooking but he is retired and cooks. Low water intake. Fluids mostly diet soda. endorses pale yellow urine indicating hydration. Reports she has given up many vices and diet soda feels like the last one she has left to enjoy. Currently working on wt loss with PCP. Uses CGM for BG. 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 Diet Recall: 730a: uncrustable sandwich OR 2 protein waffles and hassan 12p: salad with 2 small slices pizza OR cheese, meat, 5 crackers OR cottage cheese and quest chips OR corn dog, or half 6 subway sandwich sn: nothing or beef jerky or beef stikcs or 15g CHO gummy bears 630p: low carb tortillas tacos OR 4oz meat, 1 small potato +/- frozen or stir stephens veg OR burger no bun with toppings 9p: low fat vanilla citizen of [place] yogurt with berries and handful granola Rosio: Lesley water x 16oz, 16.9oz water or less, Diet Dr. Bauer 6 x12oz Anthropometrics: Ht: 5'5 Wt: 233# reported Weight history: 243.4# (02/2023 PCP) Physical Activity: No program. Stage of change precontemplative/contemplative. Self-Monitoring Blood Glucose: Wears CGM. TIR: <1% high 99% in range <1% low GMI: 5.9% Av mg/dl 20mg/dl std deviation Diabetes Medications: Metformin 500mg BID Ozempic 0.25-0.5mg per week Pertinent Labs: HgA1c: 5.75 02/2023 GLucose: 122 mg/dl 02/17/2023; 125mg/dl 02/24/2023 Past Medical History: (Last Updated 02/24/23 @ 09:11 by Kellie Cruz DO) Abnormal Pap smear of cervix (~1991) Anxiety (~1993) Cataracts, bilateral (~2016) Small Chicken pox Chronic back pain Depression Diabetes (~2008) Episode of syncope (04/2020) Fatty liver (~2014) Foot pain (~2016) Hearing loss Left ear Hepatitis C (~1998) Cured since 1999 History of hepatitis C (1999) History of urinary incontinence (~2017) Insomnia Measles Mumps Myopia Nausea Neck strain (04/2020) Ovarian cyst (~1991) Palpitations Perioral dermatitis Right upper quadrant pain (04/2020) Rotator cuff tear (10/2018) Shoulder pain (~2018) Tinnitus Always Type 2 diabetes mellitus (2009) Urinary frequency Vertigo (~2017) Nutrition Rx: 1200-1500kcal (REE 1658x1.1-500= 1323kcal/d) Carbohydrates: Daily: 130g Meal:30g Snack:15-30g Protein: Daily: 85-100g Meal: 20g Snack: 7-14g Nutrition Diagnosis: - Nutrition and food related knowledge deficit r/t no previous MNT aeb pt report - Physical inactivity r/t stage of change aeb pt report of no current program or plan - Inadequate fiber intake r/t limited whole grains and vegetables aeb diet recall Intervention: This participant was very receptive. Provided appropriate educational handouts. Discussed the following topics: Completed intake assessment. Discussed barriers to care. Pairing macronutrients, carb portions, protein portions Strategies to include whole grains and veggies Strategies to include foods she enjoys Brainstormed appropriate meal plan based on food preferences Fluid recs, trying to increase water/tea intake versus sf soda Created SMART goals for patient self-care and success. Goals: Replace some sf soda with tea Add string cheese to breakfast sandwich Add veggies to lunch and dinner Try high fiber carb options Follow-up: YASIR HENRY follow-up in 3-4 weeks Leann Prieto RDN, CARL Certified Diabetes Care and Supportive Employment Case Manager P: [phone] Thank you for this referral
== END ==
PROVIDERS: PCP Family Medicine; Referring Provider Family Medicine; Visit Provider Family Medicine
DX: E11.9 Type 2 diabetes mellitus without complications (principal); Z79.85 Long-term (current) use of injectable non-insulin antidiabetic drugs; Z79.4 Long term (current) use of insulin; Z71.3 Dietary counseling and surveillance
CPT/HCPCS: 97802

== ENCOUNTER 2023-05-08 08:46 | Emergency (ER) | payer BC, SELFPAY ==
[2023-05-08] VITALS (27 sets, daily range): BP systolic 123–131; BP diastolic 68–83; PULSE 69–97; RESP 18; TEMP 37; O2SAT 84–98; BMI 38.2
--- NOTE | 2023-05-08 09:14 | ED_ITS ---
HPI - General Adult General Chief complaint: Nausea/Vomiting/Diarrhea Stated complaint: not able to eat or drink diabetic poss uti Time Seen by Provider: 05/08/23 08:53 History of Present Illness HPI narrative: 57-year-old female with history of COPD, fatty liver, oek-rfppcey-rbfpstcjb diabetes presents by private vehicle from home for 3 days of nausea, vomiting, chills. Patient does take Ozempic and prior to symptom onset she increase her dose from 0.25 mg to 0.5 mg. Patient did an azo strip at home that is said she may have a urinary tract infection. She reports left-sided lower quadrant as well as left flank pain. Denies fevers. Related Data Home Medications Medication Instructions Recorded Confirmed nortriptyline 10 mg capsule 20 mg PO BEDTIME 11/24/21 07/08/22 aspirin 81 mg tablet,delayed 81 mg PO DAILY 02/13/22 07/08/22 release (Adult Aspirin Regimen) Previous Rx's Medication Instructions Recorded rosuvastatin 5 mg tablet See Rx Instructions .Route 05/05/22 .COMPLEX #90 tabs metformin 1,000 mg tablet 1,000 mg PO DAILY #90 tabs 02/12/23 atenolol 50 mg-chlorthalidone 25 1 tab PO DAILY #90 tabs 02/18/23 mg tablet blood-glucose meter,continuous #1 ea 02/24/23 (Dexcom G7 Foil Spinner) blood-glucose sensor (Dexcom G7 #3 ea 02/24/23 Sensor device) triamcinolone acetonide 0.1 % 1 applic topical BID PRN ear 02/24/23 topical ointment itchiness #15 grams semaglutide 0.25 mg or 0.5 mg (2 0.5 mg (0.736 mL) SUBCUT QWEEK #3 04/07/23 mg/3 mL) subcutaneous pen injector mL (Ozempic) cefpodoxime 200 mg tablet 200 mg PO Q12H #20 tabs 05/08/23 ondansetron 4 mg disintegrating 4 mg PO Q8H PRN nausea and 05/08/23 tablet vomiting #30 tabs Allergies Allergy/AdvReac Type Severity Reaction Status Date / Time No Known Drug Allergies Allergy Verified 07/08/22 10:01 Review of Systems Review of Systems Narrative: Negative except as noted above Patient History Medical History Perioral dermatitis Palpitations Neck strain (04/2020) Urinary frequency Nausea Right upper quadrant pain (04/2020) Episode of syncope (04/2020) Rotator cuff tear (10/2018) History of hepatitis C (1999) Type 2 diabetes mellitus (2009) Insomnia Myopia Hearing loss Depression Anxiety (~1993) Shoulder pain (~2018) Foot pain (~2016) Chronic back pain Mumps Measles Chicken pox Vertigo (~2017) Tinnitus Cataracts, bilateral (~2016) Ovarian cyst (~1991) Abnormal Pap smear of cervix (~1991) History of urinary incontinence (~2017) Fatty liver (~2014) Hepatitis C (~1998) Diabetes (~2008) Surgical History Anesthesia History of liver biopsy (~1997) History of hysterectomy (~1998) History of laparoscopy History of cholecystectomy (~1992) History of tubal ligation (~1991) Hx of removal of ovary (~1991) History of section Family History Father Diabetes mellitus History of heart disease Hyperlipidemia Hypertension Stroke Mother Graves disease Grandfather Cancer Grandmother History of heart disease Grandfather Cancer Grandmother Cancer Social History Smoking Status: Former smoker Tobacco: How many years used: 38 second hand exposure: Yes (sometimes at work) alcohol intake: current (10 drinks per year ) substance use type: does not use Smoking Status: Former smoker (Quit 2019) tobacco type: vaping alcohol intake frequency: holidays/special occasions only Substance Use Type: does not use Exam Initial Vital Signs Initial Vital Signs: Vital Signs Pulse Oximetry 95 05/08/23 08:58 Oxygen Delivery Method Room Air 05/08/23 08:58 Const: Awake, alert, ill-appearing, nontoxic Cardiac: regular rate, regular rhythm RESP: unlabored, clear bilaterally, no wheezing GI: Soft, left lower quadrant tenderness to deep palpation without rebound or guarding MSK back: No midline tenderness, full range of motion, left-sided CVA tenderness to percussion Skin: Warm, Dry, intact, no rashes Neuro: AO x3, CN II-XII grossly intact, moves all extremities Course Orders Ordered: ED Orders 05/08/23 09:11 CBC Auto Diff [Complete Blood Count AUTO DIFF] Stat CMP [Comprehensive Metabolic Panel] Stat Lipase Stat 05/08/23 09:13 CT abdomen pelvis w con Stat 05/08/23 09:14 XR KUB Stat EKG-12 Lead Stat 05/08/23 11:13 Chest [XR chest 1V] Stat 05/08/23 11:49 UA Complete [Urinalysis and Microscopic] Stat Urine Culture Stat Discontinued Medications Sodium Chloride (Normal Saline 0.9%) 1,000 mls @ 1,000 mls/hr IV BOLUS ONE Stop: 05/08/23 10:12 Last Infusion: 05/08/23 11:50 Dose: Infused Documented By: Admin: 05/08/23 10:07 Dose: 1,000 mls/hr Documented By: KEYUR Sodium Chloride (Normal Saline 0.9%) 1,000 mls @ 1,000 mls/hr IV BOLUS ONE Stop: 05/08/23 12:40 Last Admin: 05/08/23 12:19 Dose: 1,000 mls/hr Documented By: KEYUR Ondansetron HCl (Ondansetron 4 Mg/2 Ml Inj) 4 mg IV NOW ONE Stop: 05/08/23 09:14 Last Admin: 05/08/23 10:07 Dose: 4 mg Documented By: KEYUR Potassium Chloride (Potassium Chloride 20 Meq Tab) 40 meq PO NOW ONE Stop: 05/08/23 12:36 Last Admin: 05/08/23 12:41 Dose: 40 meq Documented By: KEYUR Vital Signs Vital signs: Vital Signs - 8 hr 05/08/23 08:58 05/08/23 09:00 05/08/23 09:03 Temperature Pulse Rate 97 H 95 H Respiratory Rate Blood Pressure Pulse Oximetry 95 96 95 Oxygen Delivery Method Room Air Room Air Oxygen Flow Rate 05/08/23 09:03 05/08/23 09:19 05/08/23 09:26 Temperature 98.6 F Pulse Rate 93 H 91 H Respiratory Rate 18 Blood Pressure 123/83 123/83 Pulse Oximetry 95 93 Oxygen Delivery Method Room Air Room Air Oxygen Flow Rate 05/08/23 09:26 05/08/23 09:30 05/08/23 09:30 Temperature Pulse Rate 88 Respiratory Rate Blood Pressure 128/79 123/77 Pulse Oximetry 92 Oxygen Delivery Method Room Air Oxygen Flow Rate 05/08/23 10:00 05/08/23 10:10 05/08/23 10:20 Temperature Pulse Rate 84 79 76 Respiratory Rate Blood Pressure Pulse Oximetry 90 L 93 92 Oxygen Delivery Method Room Air Room Air Room Air Oxygen Flow Rate 05/08/23 10:30 05/08/23 10:40 05/08/23 10:50 Temperature Pulse Rate 77 71 76 Respiratory Rate Blood Pressure Pulse Oximetry 84 L 92 91 Oxygen Delivery Method Room Air Room Air Oxygen Flow Rate 05/08/23 11:00 05/08/23 11:05 05/08/23 11:05 Temperature Pulse Rate 74 77 Respiratory Rate Blood Pressure 131/68 Pulse Oximetry 89 L 91 Oxygen Delivery Method Room Air Nasal Cannula Oxygen Flow Rate 2 05/08/23 11:10 05/08/23 11:20 05/08/23 11:30 Temperature Pulse Rate 72 77 82 Respiratory Rate Blood Pressure Pulse Oximetry 96 97 95 Oxygen Delivery Method Nasal Cannula Nasal Cannula Oxygen Flow Rate 2 2 05/08/23 11:50 05/08/23 12:00 05/08/23 12:10 Temperature Pulse Rate 75 77 74 Respiratory Rate Blood Pressure Pulse Oximetry 96 95 96 Oxygen Delivery Method Nasal Cannula Oxygen Flow Rate 2 05/08/23 12:20 05/08/23 12:21 05/08/23 12:30 Temperature Pulse Rate 72 69 Respiratory Rate Blood Pressure Pulse Oximetry 95 92 93 Oxygen Delivery Method Room Air Room Air Oxygen Flow Rate 05/08/23 12:38 05/08/23 12:40 05/08/23 12:50 Temperature Pulse Rate 76 72 Respiratory Rate Blood Pressure Pulse Oximetry 98 93 96 Oxygen Delivery Method Room Air Oxygen Flow Rate 05/08/23 13:00 Temperature Pulse Rate 72 Respiratory Rate Blood Pressure Pulse Oximetry 98 Oxygen Delivery Method Oxygen Flow Rate Medical Decision Making Differential Diagnosis Differential Diagnosis: medication side effect, gastroenteritis, pyelonephritis Lab Data 05/08/23 09:11 05/08/23 09:11 Labs: Lab Results 05/08/23 05/08/23 Range/Units 09:11 11:49 WBC 6.5 (4.5-11.0) X10^3/uL RBC 5.71 H (4.0-5.2) X10^6/uL Hgb 16.3 H (12.0-16.0) g/dL Hct 46.8 H (36-46) % MCV 81.8 (80-100) fL MCH 28.5 (26-34) PG MCHC 34.8 (30-36) % RDW 13.6 (11.6-14.8) % Plt Count 188 (150-400) X10^3/uL Neut % (Auto) 75.2 H (50-75) % Lymph % (Auto) 16.6 L (25-40) % [place] % (Auto) 7.2 (3-14) % Eos % (Auto) 0.3 L (2-4) % Baso % (Auto) 0.7 (0-2) % Neut # (Auto) 4900 (5815-6423) /uL Lymph # (Auto) 1100 (9518-4538) /uL [place] # (Auto) 500 (0-900) /uL Eos # (Auto) 0 (0-450) /uL Baso # (Auto) 0 (0-100) /uL Sodium 135 L (137-145) mmol/L Potassium 2.8 L (3.4-5.1) mmol/L Chloride 96 L (98-107) mmol/L Carbon Dioxide 27 (22-32) mmol/L BUN 10 (7-17) mg/dL Creatinine 0.77 (0.52-1.04) mg/dL Estimated GFR > 60 (>60) mL/min BUN/Creatinine Ratio 13.0 (6-22) Glucose 165 H (70-100) mg/dL Calcium 9.2 (8.4-10.2) mg/dL Total Bilirubin 0.7 (0.2-1.3) mg/dL AST 94 H (14-36) IU/L ALT 74 H (<35) IU/L Alkaline Phosphatase 74 (38-126) U/L Total Protein 8.4 H (6.3-8.2) g/dL Albumin 4.9 (3.5-5.0) g/dL Globulin 3.5 (1.7-4.1) g/dL Albumin/Globulin Ratio 1.4 (1.0-2.8) Lipase 105 (23-300) U/L Urine Color Yellow Urine Appearance Clear Urine pH 7.5 (4.5-8.0) Ur Specific [place] 1.010 (1.000-1.035) Urine Protein Negative (Negative) Urine Glucose (UA) Negative (Negative) g/dL Urine Ketones Negative (NEGATIVE) Urine Occult Blood Negative (Negative) Urine Nitrate Positive H (Negative) Urine Bilirubin Negative (NEGATIVE) Urine Urobilinogen 0.2 (0.2) E.U./dL Ur Leukocyte Esterase Negative (NEGATIVE) Urine RBC None seen (0-5/HPF) Urine WBC 0-1/hpf (0-5/HPF) Ur Squamous Epith Cells 0-1 /hpf (0-5/HPF) Urine Bacteria Many (>30) H (None) Ur Culture Indicated? Specimen cultured Vol Urine Centrifuged 10ml (spun) Point of Care Testing Glucose POC 176 Urine Dip Bedside Urine Glucose Negative Bedside Urine Bilirubin - Negative Bedside Urine Ketone - Negative Urine Specific [place] 1.005 Bedside Urine Occult Blood - Negative Bedside Urine pH 7.0 Bedside Urine Protein - Negative Bedside Urine Urobilinogen - Negative Bedside Urine Nitrite + Positive Bedside Urine Leukocytes - Negative Esterase Point of care testing: Point of Care Testing Glucose POC 176 Urine Dip Bedside Urine Glucose Negative Bedside Urine Bilirubin - Negative Bedside Urine Ketone - Negative Urine Specific [place] 1.005 Bedside Urine Occult Blood - Negative Bedside Urine pH 7.0 Bedside Urine Protein - Negative Bedside Urine Urobilinogen - Negative Bedside Urine Nitrite + Positive Bedside Urine Leukocytes - Negative Esterase Imaging Data CT scan - abdomen/pelvis: Radiologist's Impression: PROCEDURE: CT ABDOMEN PELVIS W CON INDICATIONS: LLQ PAIN, N/V TECHNIQUE: After the administration of intravenous contrast, axial sections acquired from the lung bases to the pubic symphysis. Coronal and sagittal reformats were performed. For radiation dose reduction, the following was used: automated exposure control, adjustment of mA and/or kV according to patient size. COMPARISON: None. FINDINGS: Image quality: Diagnostic. Lower Chest: No significant findings. ABDOMEN: Liver: No solid mass. Gallbladder: Gallbladder surgically absent. Biliary ducts: No biliary dilation. Pancreas: No ductal dilation. Spleen: Size is within normal limits. Adrenal Glands: No adrenal nodules. Kidneys and Ureters: No hydronephrosis. No solid mass. No complex renal cystic lesion which requires follow up. Stomach and Bowel: Normal colonic caliber, without significant wall thickening. Peritoneum: No abnormal intraperitoneal fluid. No free air. Ventral Wall: No significant ventral hernia. Abdominal Nodes: No retroperitoneal or mesenteric adenopathy by size criteria. Vessels: Aorta and inferior vena cava are normal in size. PELVIS: Pelvic Organs: Unremarkable. Bladder: No bladder wall thickening, accounting for underdistention. Pelvic Nodes: No enlarged lymph nodes. Miscellaneous: No inguinal hernias are seen. Bones: No aggressive osseous abnormality. IMPRESSION: No acute findings with the abdomen or pelvis to explain patient's symptoms. Dictated by: Cody Vazquez M.D. on 05/08/2023 at 9:26 Approved by: Cody Vazquez M.D. on 05/08/2023 at 9:30 Chest x-ray: Radiologist's Impression: PROCEDURE: XR CHEST 1V INDICATIONS: copd, low O2 sat TECHNIQUE: One view of the chest was acquired. COMPARISON: 12/21/2017. FINDINGS: Surgical changes and devices: None. Lungs and pleura: Lungs are clear. No pleural effusions or pneumothorax. Mediastinum: Mediastinal contours appear normal. Heart size is normal. Bones and chest wall: No suspicious bony lesions. Overlying soft tissues appear unremarkable. IMPRESSION: No acute cardiopulmonary abnormality is seen. Dictated by: Cody Vazquez M.D. on 05/08/2023 at 10:43 Approved by: Cody Vazquez M.D. on 05/08/2023 at 10:44 [facility] Narrative Medical decision making narrative: Ill-appearing but nontoxic patient presenting for nausea and vomiting. Symptoms started shortly after increasing Ozempic dose. I do believe that this has at least partially contributed to patient's current symptoms. Abdomen is soft but she does have left lower quadrant tenderness to deep palpation, no peritoneal signs. Nausea medications, IV fluids ordered. We will order labs and CT imaging. Laboratory work significant for WBC count 6.5, hemoglobin 16.3, sodium 135, potassium 2.8, chloride 96, creatinine 0.77. Consistent with derangements from acute vomiting. CT imaging shows no acute findings, no evidence of acute process. Patient reports feeling better after IV fluids and Zofran, is able to tolerate p.o. without any further episodes of emesis. Patient given p.o. potassium for repletion. Urinalysis does show patient has nitrites and many bacteria. Since patient is complaining of flank pain even though it was not bilateral plan to treat as acute pyelonephritis with antibiotics and antiemetics. Patient was advised of all lab and imaging findings, recommended that she go back to her initial dose of Ozempic to see if this improves her symptoms. Medications sent to pharmacy of choice. ED return precautions discussed at bedside. Patient expressed understanding of the plan and is in agreement at this time. All questions answered at the time of discharge. Discharge Plan Departure Patient Disposition: Home Clinical Impression: UTI (urinary tract infection), Nausea & vomiting, Hypokalemia Instructions: DI for Urinary Tract Infection (UTI), DI for Vomiting -- Adult Activity Restrictions/Additional Instructions: Your laboratory work today did show that you have low potassium, likely from vomiting. You have been given a dose of potassium here, which should help to correct your potassium imbalance. You did have a urinary tract infection today, and antibiotics have been sent to your pharmacy as well as nausea medications. Your nausea and vomiting may be contributed to by the increased Ozempic dose, I recommend talking to your primary care physician about going back to your previous dose until your symptoms are controlled. Prescriptions: New ondansetron 4 mg tablet,disintegrating 4 mg PO Q8H PRN (Reason: nausea and vomiting) Qty: 30 0RF cefpodoxime 200 mg tablet 200 mg PO Q12H Qty: 20 0RF Rx Instructions: must administer with a meal/food No Action nortriptyline 10 mg capsule 20 mg PO BEDTIME rosuvastatin 5 mg tablet See Rx Instructions .ROUTE .COMPLEX Qty: 90 3RF Dose Instruction: Take 1 tablet by mouth once daily Rx Instructions: Take 1 tablet by mouth once daily metformin 1,000 mg tablet 1,000 mg PO DAILY Qty: 90 3RF atenolol-chlorthalidone 50-25 mg tablet 1 tab PO DAILY Qty: 90 1RF aspirin [Adult Aspirin Regimen] 81 mg tablet,delayed release (DR/EC) 81 mg PO DAILY Ozempic 0.25 mg or 0.5 mg (2 mg/3 mL) pen injector 0.5 mg SUBCUT QWEEK Qty: 3 1RF triamcinolone acetonide 0.1 % ointment 1 applic topical BID PRN (Reason: ear itchiness) Qty: 15 0RF (DME) Dexcom G7 Foil Spinner Misc See Rx Instructions .ROUTE .MEDSUPPLY Qty: 1 1RF Rx Instructions: USE TO MONITOR BLOOD SUGAR LEVELS CONTINUOUSLY. REPLACE EVERY 365 DAYS OR IF BROKEN (DME) Dexcom G7 Sensor Device See Rx Instructions .[facility] Qty: 3 12RF Rx Instructions: USE TO MONITOR BLOOD GLUCOSE CONTINUOUSLY. REPLACE EVERY 10 DAYS. Referrals: Kellie Cruz DO [Primary Care Provider] - Stand Alone Forms: Patient Portal/API, Work Release Note
--- NOTE | 2023-05-08 09:14 | DI.RAD.S_ITS ---
PROCEDURE: XR KUB INDICATIONS: FEVER, DYSPNEA TECHNIQUE: One view of the abdomen acquired. COMPARISON: None. FINDINGS: Surgical changes and devices: None. Bowel: Bowel gas pattern is normal. Soft tissues: No suspicious abdominal calcifications. Visualized solid organ contours appear normal in size. No suspicious calcifications identified. Bones: No suspicious bony lesions. IMPRESSION: No acute abnormality. Dictated by: Cody Vazquez M.D. on 05/08/2023 at 8:26 Approved by: Cody Vazquez M.D. on 05/08/2023 at 8:26
[2023-05-08 09:24] LABS: Add Manual Diff / Slide Review NO; Basophils Absolute Auto 0 /uL (0-100); Basophils Percent Auto 0.7 % (0-2); Eosinophils Absolute Auto 0 /uL (0-450); Eosinophils Percent Auto 0.3 % (2-4); Hematocrit 46.8 % (36-46); Hemoglobin 16.3 g/dL (12.0-16.0); Lymphocytes Absolute Auto 1100 /uL (1100-4500); Lymphocytes Percent Auto 16.6 % (25-40); Mean Corpuscular HGB Conc 34.8 % (30-36); Mean Corpuscular Hemoglobin 28.5 PG (26-34); Mean Corpuscular Volume 81.8 fL (80-100); Monocytes Absolute Auto 500 /uL (0-900); Monocytes Percent Auto 7.2 % (3-14); Neutrophils Absolute Auto 4900 /uL (1500-7000); Neutrophils Percent Auto 75.2 % (50-75); Platelet Count 188 X10^3/uL (150-400); Red Blood Cell Count 5.71 X10^6/uL (4.0-5.2); Red Cell Distribution Width 13.6 % (11.6-14.8); White Blood Cell Count 6.5 X10^3/uL (4.5-11.0)
[2023-05-08 09:30] LABS: Alanine Aminotransferase 74 IU/L (<35); Albumin 4.9 g/dL (3.5-5.0); Albumin Globulin Ratio 1.4 (1.0-2.8); Alkaline Phosphatase 74 U/L (38-126); Aspartate Aminotransferase 94 IU/L (14-36); Bilirubin Total 0.7 mg/dL (0.2-1.3); Blood Urea Nitrogen 10 mg/dL (7-17); Calcium 9.2 mg/dL (8.4-10.2); Carbon Dioxide 27 mmol/L (22-32); Chloride 96 mmol/L (98-107); Estimated Glomerular Filt Rate > 60 mL/min (>60); Globulin 3.5 g/dL (1.7-4.1); Glucose 165 mg/dL (70-100); HEMOLYSIS 19 (0-50); Lipase 105 U/L (23-300); Potassium 2.8 mmol/L (3.4-5.1); Sodium 135 mmol/L (137-145); Total Protein 8.4 g/dL (6.3-8.2)
[2023-05-08] MEDS: SODIUM CHLORIDE 0.9% 1,000 ML 1000 ML IV ×2 (10:07→12:19)
[2023-05-08] MEDS: ONDANSETRON 4 MG/2 ML INJ IV (10:07)
--- NOTE | 2023-05-08 11:13 | DI.RAD.S_ITS ---
PROCEDURE: XR CHEST 1V INDICATIONS: copd, low O2 sat TECHNIQUE: One view of the chest was acquired. COMPARISON: 12/21/2017. FINDINGS: Surgical changes and devices: None. Lungs and pleura: Lungs are clear. No pleural effusions or pneumothorax. Mediastinum: Mediastinal contours appear normal. Heart size is normal. Bones and chest wall: No suspicious bony lesions. Overlying soft tissues appear unremarkable. IMPRESSION: No acute cardiopulmonary abnormality is seen. Dictated by: Cody Vazquez M.D. on 05/08/2023 at 10:43 Approved by: Cody Vazquez M.D. on 05/08/2023 at 10:44
[2023-05-08 12:16] LABS: Appearance Urine UA CLEAR; Bilirubin Urine UA NEGATIVE (NEGATIVE); Color Urine UA YELLOW; Glucose Urine UA NEGATIVE (Negative); Ketones Urine UA NEGATIVE (NEGATIVE); Leukocyte Esterase Urine UA NEGATIVE (NEGATIVE); Nitrite Urine UA POSITIVE (Negative); Occult Blood Urine UA NEGATIVE (Negative); Protein Urine UA NEGATIVE (Negative); Urobilinogen Urine UA 0.2 E.U./dL (0.2)
[2023-05-08 12:19] LABS: pH Urine UA 7.5 (4.5-8.0)
[2023-05-08 12:26] LABS: Bacteria Urine Many (>30); Culture Indicated Urine Specimen Cultured; RBC Urine None Seen (0-5/HPF); Squamous Epithelial Cell Urine 0-1 /HPF (0-5/HPF); Urine Volume 10mL (spun); WBC Urine 0-1/HPF (0-5/HPF)
[2023-05-08] MEDS: POTASSIUM CHLORIDE 20 MEQ TAB 40 MEQ PO (12:41)
== END 2023-05-08 13:13 | disposition home or self-care (01) ==
PROVIDERS: Emergency Provider Emergency Medicine; PCP Family Medicine
DX: N39.0 Urinary tract infection, site not specified (principal); R10.32 Left lower quadrant pain; R11.2 Nausea with vomiting, unspecified; E87.6 Hypokalemia
CPT/HCPCS: 36415; 71045; 74018; 74177; 80053; 81001; 81003; 82962; 83690; 85025; 87077; 87086; 87186; 93005; 96361; 96374; 99284; 99285; J2405; Q9967

== ENCOUNTER → 2023-08-25 07:07 | Outpatient (CLI) | payer BC, SELFPAY ==
[2023-08-25 07:53] LABS: Hemoglobin A1C% w Est Avg Glu 5.7 % (4.0-6.0)
[2023-08-25 08:16] LABS: Alanine Aminotransferase 32 IU/L (<35); Albumin 4.4 g/dL (3.5-5.0); Albumin Globulin Ratio 1.6 (1.0-2.8); Alkaline Phosphatase 100 U/L (38-126); Aspartate Aminotransferase 38 IU/L (14-36); BUN Creatinine Ratio 18.3 (6-22); Bilirubin Total 0.5 mg/dL (0.2-1.3); Blood Urea Nitrogen 15 mg/dL (7-17); Calcium 9.4 mg/dL (8.4-10.2); Carbon Dioxide 33 mmol/L (22-32); Chloride 100 mmol/L (98-107); Estimated Glomerular Filt Rate > 60 mL/min (>60); Globulin 2.8 g/dL (1.7-4.1); Glucose 127 mg/dL (70-100); HEMOLYSIS 27 (0-50); Potassium 4.1 mmol/L (3.4-5.1); Sodium 141 mmol/L (137-145); Total Protein 7.2 g/dL (6.3-8.2)
[2023-08-25 20:21] LABS: High Sensitivity CRP - Cardiac 2.1 mg/L (1.0-3.0)
[2023-08-27 04:10] LABS: Insulin Level Total 42.8 uIU/mL (2.6-24.9)
== END ==
PROVIDERS: PCP Family Medicine; Referring Provider Family Medicine; Visit Provider Family Medicine
DX: E78.5 Hyperlipidemia, unspecified (principal); I10 Essential (primary) hypertension; E11.9 Type 2 diabetes mellitus without complications
CPT/HCPCS: 36415; 80053; 83036; 83525; 86140

== ENCOUNTER → 2023-09-08 06:59 | Outpatient (CLI) | payer BC, SELFPAY ==
[2023-09-08 08:58] LABS: Free T3, Triiodothyronine Free 3.22 pg/mL (2.77-5.27); Free T4, Direct Thyroxine 0.94 ng/dL (0.78-2.19)
[2023-09-08 09:12] LABS: Thyroid Stimulating Hormone 2.89 uIU/mL (0.47-4.68)
[2023-09-09 19:36] LABS: Anti Thyroglobulin Antibody <1.0 IU/mL (0.0-0.9); Thyroid Peroxidase Antibodies 18 IU/mL (0-34)
== END ==
PROVIDERS: PCP Family Medicine; Referring Provider Family Medicine; Visit Provider Family Medicine
DX: L65.9 Nonscarring hair loss, unspecified (principal)
CPT/HCPCS: 36415; 82627; 84439; 84443; 84481; 86376; 86800

== ENCOUNTER 2024-01-05 17:27 | Emergency (ER) | payer BC, SELFPAY ==
[2024-01-05 17:36] VITALS: BP 153/81; PULSE 68; RESP 18; TEMP 37.2; O2SAT 96; BMI 36.2
--- NOTE | 2024-01-05 17:41 | EKG_ITS ---
[id number] [address] [place] [address] Test Date: 2024-01-05 Pat Name: Gerri Gamble Department: [facility] Room: Gender: Female Pricing Lead: YUNIEL : 1965 Requested By: Order Number: [id number] Reading MD: Teofilo Paul Measurements Intervals [place] Rate: 62 P: 38 MO: 142 QRS: 10 QRSD: 96 T: 6 QT: 430 QTc: 436 Interpretive Statements Normal sinus rhythm Electronically Signed On 01-05-2024 19:05:24 PST by Teofilo Paul
--- NOTE | 2024-01-05 17:41 | DI.RAD.S_ITS ---
PROCEDURE: XR CHEST 1V INDICATIONS: chest pain TECHNIQUE: One view of the chest was acquired. COMPARISON: [facility], CR, XR CHEST 1V, 05/08/2023, 11:31. FINDINGS: Surgical changes and devices: None. Lungs and pleura: Lungs are clear. No pleural effusions or pneumothorax. Mediastinum: Mediastinal contours appear normal. Heart size is normal. Bones and chest wall: No suspicious bony lesions. Overlying soft tissues appear unremarkable. IMPRESSION: No acute pulmonary process. Dictated by: Chioma Taylor M.D. on 01/05/2024 at 18:58 Approved by: Chioma Taylor M.D. on 01/05/2024 at 18:58
--- NOTE | 2024-01-05 18:03 | PC.NURSE ---
patient started having cloudy urine 3 days ago. she drink water to clear the urine up. yesterday she began feeling not well she was put on abx for UTI by [facility]. today shes been having dizziness, shaky, and not feeling well with fevers. Also her Right leg hurts in her popliteal area up to her back leg. no noticeable redness or swelling in her leg.
[2024-01-05 18:12] LABS: Add Manual Diff / Slide Review NO; Basophils Absolute Auto 100 /uL (0-100); Basophils Percent Auto 0.8 % (0-2); Eosinophils Absolute Auto 500 /uL (0-450); Eosinophils Percent Auto 5.4 % (2-4); Lymphocytes Absolute Auto 1900 /uL (1100-4500); Lymphocytes Percent Auto 22.2 % (25-40); Mean Corpuscular HGB Conc 34.1 % (30-36); Mean Corpuscular Hemoglobin 28.6 PG (26-34); Monocytes Absolute Auto 500 /uL (0-900); Neutrophils Absolute Auto 5800 /uL (1500-7000); Neutrophils Percent Auto 65.6 % (50-75); Platelet Count 193 X10^3/uL (150-400); Red Blood Cell Count 5.23 X10^6/uL (4.0-5.2); Red Cell Distribution Width 13.5 % (11.6-14.8); White Blood Cell Count 8.8 X10^3/uL (4.5-11.0)
[2024-01-05 18:14] LABS: INR 1.1 (0.9-1.3)
[2024-01-05 18:17] LABS: PTT Partial Thromboplastin Tim 41 SECONDS (25.1-36.5)
[2024-01-05 18:18] LABS: Alanine Aminotransferase 27 IU/L (<35); Albumin 4.8 g/dL (3.5-5.0); Albumin Globulin Ratio 1.6 (1.0-2.8); Alkaline Phosphatase 91 U/L (38-126); Aspartate Aminotransferase 39 IU/L (14-36); BUN Creatinine Ratio 15.9 (6-22); Bilirubin Total 0.8 mg/dL (0.2-1.3); Blood Urea Nitrogen 11 mg/dL (7-17); Calcium 9.7 mg/dL (8.4-10.2); Carbon Dioxide 24 mmol/L (22-32); Chloride 103 mmol/L (98-107); Creatine Kinase 80 U/L (30-135); Estimated Glomerular Filt Rate > 60 mL/min (>60); Glucose 106 mg/dL (70-100); HEMOLYSIS 30 (0-50); Lipase 374 U/L (23-300); Magnesium 1.8 mg/dL (1.6-2.3); Potassium 3.2 mmol/L (3.4-5.1); Sodium 136 mmol/L (137-145); Total Protein 7.8 g/dL (6.3-8.2)
[2024-01-05 18:30] LABS: NT-proBNP (BNP-Adult 18+) 97 pg/mL (<125); Troponin I < 0.012 ng/mL (0.01-0.034)
[2024-01-05 18:31] VITALS: PULSE 61; RESP 7; O2SAT 93
[2024-01-05 19:00] VITALS: PULSE 61; RESP 16; O2SAT 92
--- NOTE | 2024-01-05 19:10 | ED.CHESTPAIN ---
HPI - Chest Pain General Chief Complaint: Chest Pain Stated Complaint: sent by [facility], central chest px, left shoulder px Time Seen by Provider: 01/05/24 19:09 Source: patient Mode of arrival: Wheelchair Limitations: no limitations History of Present Illness HPI narrative: Patient is a 58-year-old female history of iai-uppcytt-wazlzqvpl diabetes presenting today with variety of symptoms. She has a history of UTIs with drug resistance she was seen on a [facility] health provider yesterday she was started on cefdinir which worked for her last time. She reports that last week she thought she was having an infection with frequent painful urination she has had symptoms went away however they came back. She has had about 3 doses of cefdinir. She went to walk-in clinic today she just wanted to make sure there they were noticed that she might have been short of breath she was having some left shoulder pain she was shaky and she was sent here for further evaluation. She says her shoulder really does not hurt she sometimes is short of breath but really denies any sort of chest heaviness or discomfort. She has no known history of coronary artery disease. She denies any cough or sore throat. Related Data Home Medications Medication Instructions Recorded Confirmed aspirin 81 mg tablet,delayed 81 mg PO DAILY 02/13/22 12/08/23 release (Adult Aspirin Regimen) albuterol sulfate 90 mcg/actuation inhalation 09/01/23 12/08/23 aerosol inhaler inhalational spacing device (Space #1 ea 09/01/23 12/08/23 Chamber) methocarbamol 500 mg tablet 500 mg PO 3XD 09/01/23 12/08/23 pantoprazole 40 mg tablet,delayed 40 mg PO DAILY 09/01/23 12/08/23 release rimegepant 75 mg disintegrating 75 mg PO PRN migraine 09/01/23 12/08/23 [facility] Previous Rx's Medication Instructions Recorded metformin 1,000 mg tablet 1,000 mg PO DAILY #90 tabs 02/12/23 blood-glucose meter,continuous #1 ea 02/24/23 (Dexcom G7 Washer Engineer Helper) blood-glucose sensor (Dexcom G7 #3 ea 02/24/23 Sensor device) triamcinolone acetonide 0.1 % 1 applic topical BID PRN ear 02/24/23 topical ointment itchiness #15 grams nortriptyline 10 mg capsule 10 mg PO BEDTIME migraine 09/01/23 prophylaxis #90 caps ondansetron 4 mg disintegrating 4 mg PO Q8H PRN nausea and 09/01/23 tablet vomiting #30 tabs rosuvastatin 5 mg tablet 5 mg PO DAILY #90 tabs 11/15/23 atenolol 50 mg-chlorthalidone 25 See Rx Instructions PO .COMPLEX 12/08/23 mg tablet #90 tabs progesterone micronized 200 mg 200 - 400 mg (1 - 2 x 200 mg) PO 12/08/23 capsule (Prometrium) BEDTIME #90 caps cyanocobalamin (vitamin B-12) 1,000 mcg IM .COMPLEX #10 mL 12/22/23 1,000 mcg/mL injection solution Allergies Allergy/AdvReac Type Severity Reaction Status Date / Time No Known Drug Allergies Allergy Verified 01/05/24 17:41 Patient History Medical History BMI 40.0-44.9, adult Perioral dermatitis Palpitations Neck strain (04/2020) Urinary frequency Nausea Right upper quadrant pain (04/2020) Episode of syncope (04/2020) Rotator cuff tear (10/2018) History of hepatitis C (1999) Type 2 diabetes mellitus (2009) Insomnia Myopia Hearing loss Depression Anxiety (~1993) Shoulder pain (~2018) Foot pain (~2016) Chronic back pain Mumps Measles Chicken pox Vertigo (~2017) Tinnitus Cataracts, bilateral (~2016) Ovarian cyst (~1991) Abnormal Pap smear of cervix (~1991) History of urinary incontinence (~2017) Fatty liver (~2014) Hepatitis C (~1998) Diabetes (~2008) Surgical History Anesthesia History of liver biopsy (~1997) History of hysterectomy (~1998) History of laparoscopy History of cholecystectomy (~1992) History of tubal ligation (~1991) Hx of removal of ovary (~1991) History of section Family History Father Diabetes mellitus History of heart disease Hyperlipidemia Hypertension Stroke Mother Graves disease Grandfather Cancer Grandmother History of heart disease Grandfather Cancer Grandmother Cancer Social History Smoking Status: Former smoker Tobacco: How many years used: 38 second hand exposure: Yes (sometimes at work) alcohol intake: current (10 drinks per year ) substance use type: does not use Smoking Status: Former smoker tobacco type: vaping alcohol intake frequency: 0-2 drinks per day Substance Use Type: does not use Exam Initial Vital Signs Initial Vital Signs: Vital Signs Temperature 99.0 F 01/05/24 17:36 Pulse Rate 68 01/05/24 17:36 Respiratory Rate 18 01/05/24 17:36 Blood Pressure 153/81 H 01/05/24 17:36 Pulse Oximetry 96 01/05/24 17:36 Oxygen Delivery Method Room Air 01/05/24 17:36 GENERAL: Alert well-appearing 58-year-old female and in no acute distress. HEENT: Head atraumatic,EOMI, pupils reactive, face symmetric, moist mucous membranes CARDIOVASCULAR: Regular rate and rhythm without murmurs, rubs or gallops. RESPIRATORY: Breath sounds equal bilaterally, no wheezes rales or rhonchi. ABDOMEN: Soft, nontender. Normoactive bowel sounds all 4 quadrants. No guarding or rebound. : Mild bilateral CVA tenderness EXTREMITIES: Normal range of motion, no clubbing or edema. Neurovascularly intact NEUROLOGICAL: Alert and oriented x4.Normal gait and speech. SKIN: Warm, dry, no laceration, no petechiae, no rashes or lesions. Course Orders Ordered: ED Orders 01/05/24 19:32 UA dip and micro [Urinalysis and Microscopic] Stat Urine Culture Stat Discontinued Medications Aspirin (Aspirin 81 Mg Chew Tab) 324 mg PO NOW ONE Stop: 01/05/24 17:42 Last Admin: 01/05/24 19:46 Dose: Not Given Documented By: AB Vital Signs Vital signs: Vital Signs - 8 hr 01/05/24 19:52 01/05/24 19:52 01/05/24 19:56 Pulse Rate 61 59 L Respiratory Rate 28 H 22 Blood Pressure 117/64 117/64 Pulse Oximetry 97 96 Oxygen Delivery Method Room Air MDM - Chest Pain Lab Data 01/05/24 17:45 01/05/24 17:45 Labs: Lab Results 11/20/24 11/20/24 Range/Units 17:45 19:32 WBC 8.8 (4.5-11.0) X10^3/uL RBC 5.23 H (4.0-5.2) X10^6/uL Hgb 15.0 (12.0-16.0) g/dL Hct 44.0 (36-46) % MCV 84.0 (80-100) fL MCH 28.6 (26-34) PG MCHC 34.1 (30-36) % RDW 13.5 (11.6-14.8) % Plt Count 193 (150-400) X10^3/uL Neut % (Auto) 65.6 (50-75) % Lymph % (Auto) 22.2 L (25-40) % [place] % (Auto) 6.0 (3-14) % Eos % (Auto) 5.4 H (2-4) % Baso % (Auto) 0.8 (0-2) % Neut # (Auto) 5800 (9502-2687) /uL Lymph # (Auto) 1900 (2909-3999) /uL [place] # (Auto) 500 (0-900) /uL Eos # (Auto) 500 H (0-450) /uL Baso # (Auto) 100 (0-100) /uL PT 12.0 (9.4-12.5) SECONDS INR 1.1 (0.9-1.3) APTT 41 H (25.1-36.5) SECONDS Sodium 136 L (137-145) mmol/L Potassium 3.2 L (3.4-5.1) mmol/L Chloride 103 (98-107) mmol/L Carbon Dioxide 24 (22-32) mmol/L BUN 11 (7-17) mg/dL Creatinine 0.69 (0.52-1.04) mg/dL Estimated GFR > 60 (>60) mL/min BUN/Creatinine Ratio 15.9 (6-22) Glucose 106 H (70-100) mg/dL Calcium 9.7 (8.4-10.2) mg/dL Magnesium 1.8 (1.6-2.3) mg/dL Total Bilirubin 0.8 (0.2-1.3) mg/dL AST 39 H (14-36) IU/L ALT 27 (<35) IU/L Alkaline Phosphatase 91 (38-126) U/L Total Creatine Kinase 80 (30-135) U/L Troponin I < 0.012 (0.01-0.034) ng/mL NT-Pro-B Natriuret Pep 97 (<125) pg/mL Total Protein 7.8 (6.3-8.2) g/dL Albumin 4.8 (3.5-5.0) g/dL Globulin 3.0 (1.7-4.1) g/dL Albumin/Globulin Ratio 1.6 (1.0-2.8) Lipase 374 H (23-300) U/L Urine Color [place] Urine Appearance Slightly cloudy Urine pH TNP Ur Specific [place] TNP Urine Protein TNP Urine Glucose (UA) TNP Urine Ketones TNP Urine Occult Blood TNP Urine Nitrate TNP Urine Bilirubin TNP Urine Urobilinogen TNP Ur Leukocyte Esterase TNP Urine RBC 0-1/hpf (0-5/HPF) Urine WBC 0-1/hpf (0-5/HPF) Ur Squamous Epith Cells 0-1 /hpf (0-5/HPF) Urine Bacteria Occasional (0-1) (None) Vol Urine Centrifuged 10ml (spun) Imaging Data Chest x-ray: Radiologist's Impression: PROCEDURE: XR CHEST 1V INDICATIONS: chest pain TECHNIQUE: One view of the chest was acquired. COMPARISON: [facility], , XR CHEST 1V, 05/08/2023, 11:31. FINDINGS: Surgical changes and devices: None. Lungs and pleura: Lungs are clear. No pleural effusions or pneumothorax. Mediastinum: Mediastinal contours appear normal. Heart size is normal. Bones and chest wall: No suspicious bony lesions. Overlying soft tissues appear unremarkable. IMPRESSION: No acute pulmonary process. Dictated by: Chioma Taylor M.D. on 01/05/2024 at 18:58 ECG Data Attestation: I personally reviewed and interpreted this ECG as follows: Prior ECG tracings: available for review Interpretation: Normal sinus rhythm rate 62 PA interval 1 2 QRS 96 QTC 36 T-wave inversion noted in 3 similar to prior MDM Narrative Medical decision making narrative: MDM CC: UTI chest pain Complicating co-morbidities: [id number] Medical records reviewed: Prior urinalysis from 05/08/2023 shows citrobacter freundii resistant cefazolin and Augmentin Differential considered: Exam documented above, pertinent findings include: Alert well-appearing 58-year-old female soft Lab Test results independently reviewed as above. Pertinent findings: Troponin negative, BNP 97 WBC 8.8, hemoglobin 15 hematocrit 44 Sodium 136 potassium 3.5 chloride 103, carbon dioxide 24 BUN 11 creatinine 0.69 glucose 106 Bilirubin 0.8 AST 39 ALT 27 alk phos 91 Independently reviewed EKG as above no ischemia Imaging studies independently reviewed: No acute cardiopulmonary process Consultations: none Treatments: None Discussion: Patient 58-year-old female who has frequent UTIs with drug resistance currently on cefdinir presents today going issues. She has minimal bilateral flank pain. She is currently taking cefdinir. She was sent here for some chest discomfort which really does not seem cardiac in nature at all. She had some left shoulder pain which seems very unrelated it has not necessarily reproducible. She ruled out for acute coronary syndrome. Chest x-ray was clear. She has a urine culture pending since she was prescribed cefdinir over a [facility] appointment. She has no evidence of sepsis she has a normal WBC and she is afebrile. Discharge Plan Departure Patient Disposition: Home Clinical Impression: UTI (urinary tract infection), Atypical chest pain Instructions: DI for Urinary Tract Infection (UTI) Activity Restrictions/Additional Instructions: *You have been diagnosed with atypical chest pain bladder infection *What to do: At this time please finish your antibiotics as prescribed. We have a urine culture pending we will only call you if we need to change up your antibiotics *Continue to take medications as directed *Follow up with your primary care provider in 2-3 days or call [phone] *Return to ER if you should have increasing chest pain shortness of breath back pain nausea vomiting fever or any new, worsening or concerning symptoms Prescriptions: No Action metformin 1,000 mg tablet 1,000 mg PO DAILY Qty: 90 3RF rosuvastatin 5 mg tablet 5 mg PO DAILY Qty: 90 0RF aspirin [Adult Aspirin Regimen] 81 mg tablet,delayed release (DR/EC) 81 mg PO DAILY progesterone micronized [Prometrium] 200 mg capsule 200 - 400 mg PO BEDTIME Qty: 90 1RF Rx Instructions: Take nightly for 3 months initially, investigator internal 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 atenolol-chlorthalidone 50-25 mg tablet See Rx Instructions PO .COMPLEX Qty: 90 1RF Rx Instructions: .5 tab before bed, .5 tab in the morning, reduce back to .5 daily if BP<110/80 or symptoms of low blood pressure triamcinolone acetonide 0.1 % ointment 1 applic topical BID PRN (Reason: ear itchiness) Qty: 15 0RF (DME) Dexcom G7 Washer Engineer Helper Misc See Rx Instructions .ROUTE .MEDSUPPLY Qty: 1 1RF Rx Instructions: USE TO MONITOR BLOOD SUGAR LEVELS CONTINUOUSLY. REPLACE EVERY 365 DAYS OR IF BROKEN (DME) Dexcom G7 Sensor Device See Rx Instructions .ROUTE .MEDSUPPLY Qty: 3 12RF Rx Instructions: USE TO MONITOR BLOOD GLUCOSE CONTINUOUSLY. REPLACE EVERY 10 DAYS. methocarbamol 500 mg tablet 500 mg PO 3XD Nurtec ODT 75 mg tablet,disintegrating 75 mg PO PRN (Reason: migraine) albuterol sulfate 90 mcg/actuation HFA aerosol inhaler inhalation pantoprazole 40 mg tablet,delayed release (DR/EC) 40 mg PO DAILY (DME) Space Chamber Spacer See Rx Instructions .ROUTE .MEDSUPPLY Qty: 1 Patient Comments: [NO ORIGINAL SIG] Rx Instructions: As directed nortriptyline 10 mg capsule 10 mg PO BEDTIME Qty: 90 0RF ondansetron 4 mg tablet,disintegrating 4 mg PO Q8H PRN (Reason: nausea and vomiting) Qty: 30 0RF cyanocobalamin (vitamin B-12) 1,000 mcg/mL solution 1,000 mcg IM .COMPLEX Qty: 10 0RF Rx Instructions: Give B12 injection 1000mcg/ml IM weekly x4 then monthly. Referrals: Kellie Cruz DO [Primary Care Provider] - Stand Alone Forms: Patient Portal/API/Survey
[2024-01-05 19:36] VITALS: PULSE 80; RESP 30; O2SAT 97
[2024-01-05 19:41] LABS: Appearance Urine UA Slightly Cloudy
[2024-01-05 19:42] LABS: Color Urine UA ORANGE
[2024-01-05 19:48] LABS: Bacteria Urine Occasional (0-1); RBC Urine 0-1/HPF (0-5/HPF); Squamous Epithelial Cell Urine 0-1 /HPF (0-5/HPF); Urine Volume 10mL (spun); WBC Urine 0-1/HPF (0-5/HPF)
[2024-01-05 19:52] VITALS: BP 117/64; PULSE 61; RESP 28; O2SAT 97
[2024-01-05 19:56] VITALS: BP 117/64; PULSE 59; RESP 22; O2SAT 96
== END 2024-01-05 19:58 | disposition home or self-care (01) ==
PROVIDERS: Emergency Medicine; Emergency Provider Emergency Medicine; PCP Family Medicine
DX: N39.0 Urinary tract infection, site not specified (principal); R07.89 Other chest pain; R30.0 Dysuria
CPT/HCPCS: 71045; 80053; 81001; 82550; 83690; 83735; 83880; 84484; 85025; 85610; 85730; 87086; 93005; 99283; 99284

== ENCOUNTER → 2024-03-10 07:11 | Outpatient (CLI) | payer BC, SELFPAY ==
[2024-03-10 08:09] LABS: Hemoglobin A1C% w Est Avg Glu 5.5 % (4.0-6.0)
[2024-03-10 08:41] LABS: Alanine Aminotransferase 37 IU/L (<35); Albumin 4.6 g/dL (3.5-5.0); Alkaline Phosphatase 68 U/L (38-126); Aspartate Aminotransferase 38 IU/L (14-36); BUN Creatinine Ratio 17.3 (6-22); Bilirubin Total 0.7 mg/dL (0.2-1.3); Blood Urea Nitrogen 14 mg/dL (7-17); Calcium 9.6 mg/dL (8.4-10.2); Carbon Dioxide 29 mmol/L (22-32); Chloride 97 mmol/L (98-107); Cholesterol 135 mg/dL (140-199); Estimated Glomerular Filt Rate > 60 mL/min (>60); Globulin 2.3 g/dL (1.7-4.1); Glucose 113 mg/dL (70-100); HDL Cholesterol 63 mg/dL (40-60); HEMOLYSIS < 15 (0-50); LDL Cholesterol Calculated 27 mg/dL (<100); Potassium 3.6 mmol/L (3.4-5.1); Sodium 134 mmol/L (137-145); Total Protein 6.9 g/dL (6.3-8.2); Triglycerides 224 mg/dL (35-150)
[2024-03-13 17:36] LABS: Insulin Level Total 37.7 uIU/mL (2.6-24.9)
== END ==
PROVIDERS: PCP Family Medicine; Referring Provider Family Medicine; Visit Provider Family Medicine
DX: I10 Essential (primary) hypertension (principal); E66.01 Morbid (severe) obesity due to excess calories; E11.9 Type 2 diabetes mellitus without complications; E88.810 Metabolic syndrome
CPT/HCPCS: 36415; 80053; 80061; 83036; 83525

== ENCOUNTER → 2024-06-09 08:02 | Outpatient (CLI) | payer BC, SELFPAY ==
[2024-06-09 08:43] LABS: Hemoglobin 15.4 g/dL (12.0-16.0); Mean Corpuscular HGB Conc 34.9 % (30-36); Mean Corpuscular Hemoglobin 28.9 PG (26-34); Mean Corpuscular Volume 82.6 fL (80-100); Platelet Count 194 X10^3/uL (150-400); Red Blood Cell Count 5.33 X10^6/uL (4.0-5.2); Red Cell Distribution Width 13.6 % (11.6-14.8)
[2024-06-09 08:53] LABS: Alanine Aminotransferase 39 IU/L (<35); Albumin 4.5 g/dL (3.5-5.0); Albumin Globulin Ratio 1.9 (1.0-2.8); Alkaline Phosphatase 69 U/L (38-126); Aspartate Aminotransferase 38 IU/L (14-36); BUN Creatinine Ratio 15.2 (6-22); Bilirubin Total 0.5 mg/dL (0.2-1.3); Blood Urea Nitrogen 12 mg/dL (7-17); Calcium 9.5 mg/dL (8.4-10.2); Carbon Dioxide 25 mmol/L (22-32); Chloride 102 mmol/L (98-107); Cholesterol 121 mg/dL (140-199); Estimated Glomerular Filt Rate > 60 mL/min (>60); Globulin 2.4 g/dL (1.7-4.1); Glucose 119 mg/dL (70-99); HDL Cholesterol 58 mg/dL (40-60); HEMOLYSIS < 15 (0-50); LDL Cholesterol Calculated 35 mg/dL (<100); Lipase 103 U/L (23-300); Potassium 3.6 mmol/L (3.4-5.1); Sodium 138 mmol/L (137-145); Total Protein 6.9 g/dL (6.3-8.2); Triglycerides 140 mg/dL (35-150)
[2024-06-09 09:22] LABS: TSH w/ Reflex to FT4 0.83 uIU/mL (0.47-4.68)
[2024-06-10 03:08] LABS: CRP, High Sensitivity 0.31 mg/L (0.00-3.00)
[2024-06-10 07:09] LABS: Insulin Level Total 28.1 uIU/mL (2.6-24.9)
== END ==
LOC: LAB 08:03
PROVIDERS: PCP Family Medicine; Referring Provider Family Medicine; Visit Provider Family Medicine
DX: E78.5 Hyperlipidemia, unspecified (principal); I10 Essential (primary) hypertension; E11.9 Type 2 diabetes mellitus without complications; Z79.899 Other long term (current) drug therapy; R00.2 Palpitations; E03.9 Hypothyroidism, unspecified
CPT/HCPCS: 36415; 80053; 80061; 83525; 83690; 84443; 85027; 86140

== ENCOUNTER → 2024-07-13 12:49 | Outpatient (CLI) | payer BC, SELFPAY ==
--- NOTE | 2024-07-13 12:51 | DI.MG.S_ITS ---
MM screening mammo BI: 07/13/2024. BI-RADS: 1 CLINICAL: 58-year old female for bilateral screening mammogram. The patient presented for routine bilateral screening mammography. On review of the screening mammography, however, an abnormality (CHOOSE REASON) was queried by the radiologist and the exam was converted to diagnostic mammography. Tyrer-Cuzick lifetime risk of 5.3%. No personal or first-degree family history of breast cancer. PRIOR EXAMS 02/17/2023. MAMMOGRAPHY TECHNIQUE: 2D and 3D (tomosynthesis) digital mammographic views obtained, with additional images as needed for full coverage. Current study was also evaluated with a Computer Aided Detection (CAD) system. DENSITY B. There are scattered areas of fibroglandular density. MAMMOGRAPHY FINDINGS Bilateral: No suspicious mass, asymmetry, microcalcification, or other abnormality seen. IMPRESSION: * No evidence of malignancy. RECOMMENDATIONS Bilateral * Annual screening mammography. OVERALL ASSESSMENT CATEGORY BI-RADS-1: Negative. The [employer] recommends annual screening mammography beginning at age 40 for women with average risk of breast cancer. ELECTRONICALLY SIGNED: Niko Hernandez M.D. on 07/13/2024 at 05:48:50 PM PT Interpreting Station ID: [id number]
--- NOTE | 2024-07-13 12:51 | DI.US.S_ITS ---
PROCEDURE: US ABDOMEN COMPLETE INDICATIONS: abdominal pain and nausea TECHNIQUE: Real-time scanning was performed of the abdominal and retroperitoneal organs, with image documentation. COMPARISON: [facility], , US ABDOMEN COMPLETE, 06/03/2020, 11:18. FINDINGS: Liver: Liver is normal in size and homogeneous in echotexture. Gallbladder: Surgically absent. Biliary ducts: Intrahepatic bile ducts are non-dilated. Extrahepatic bile duct caliber measures 6.7 mm. Normal is 6-7 mm or less in diameter, or 10 mm or less post-cholecystectomy. Pancreas: Visualized portions of the pancreas are sonographically normal. Spleen: Spleen is normal in size and homogeneous in echotexture. Kidneys: Kidneys are normal in size and echotexture. Right kidney measures 10.4 cm long; left kidney measures 10.9 cm long. No hydronephrosis or nephrolithiasis. No solid masses. Aorta: Visualized aorta is normal in caliber at less than 3 cm. Iliacs: Proximal common iliac arteries are normal in caliber at less than 2.5 cm. IVC: Intrahepatic inferior vena cava is patent. Miscellaneous: No free abdominal fluid. IMPRESSION: Post cholecystectomy without significant biliary dilatation. The visible solid organs appear normal. Dictated by: Melva Gold M.D. on 07/14/2024 at 14:23 Approved by: Melva Gold M.D. on 07/14/2024 at 14:25
== END ==
LOC: MAMMO 12:50
PROVIDERS: PCP Family Medicine; Referring Provider Family Medicine; Visit Provider Family Medicine
DX: Z12.31 Encounter for screening mammogram for malignant neoplasm of breast (principal); R10.9 Unspecified abdominal pain; Z90.49 Acquired absence of other specified parts of digestive tract
CPT/HCPCS: 76700; 77063; 77067